=== PATIENT | male | born 1995 | race Caucasian/White ===

== ENCOUNTER 2017-03-28 14:54 | Emergency (ER) | payer BC ==
[~2017-03-28] VITALS: Ht 180.3 cm; Wt 76.8 kg
[~2017-03-28 14:54] MED LIST: AMOX875T PO; EFF75 PO
[2017-03-28 14:56] VITALS: Ht 180.3 cm; Wt 76.8 kg
[2017-03-28] MEDS ORDERED: MoRPHine SULFATE 10 MG/ML CARP/VIAL IV STA (15:18)
[2017-03-28] MEDS ORDERED: SODIUM CHLORIDE 0.9% 1000ML 1,000 ML IV STA (15:18)
[2017-03-28] MEDS ORDERED: ONDANSETRON INJ 2 MG/ML 2 ML VIAL IV STA (15:18)
[2017-03-28] MEDS ORDERED: ONDANSETRON INJ 2 MG/ML 2 ML VIAL ONE (15:22)
[2017-03-28 15:32] LABS: BASO % 0.2 %; BASO ABS # 0.01 K/uL (0-0.2); COMPLETE YES; EOS % 1.7 %; HEMATOCRIT 43.7 % (42-52); IG% 0.4 %; LYMPH % 29.4 %; LYMPH ABS # 1.55 K/uL (1.2-3.4); MEAN CELL VOLUME 91.6 fL (80-100); MEAN CORPUSCULAR HEMOGLOBIN 30.2 pg (25-34); MEAN PLATELET VOLUME 9.8 fL (7.4-10.4); MONO % 15.4 %; NEUT % 52.9 %; PLATELET COUNT 256 K/uL (130-400); RED BLOOD COUNT 4.77 M/uL (4.7-6.1); WHITE BLOOD COUNT 5.27 K/uL (4.8-10.8)
--- NOTE | 2017-03-28 15:33 | EMERGENCY ROOM VISIT NOTE ---
History First contact with patient: 15:08 Chief Complaint: KIDNEY STONE Stated Complaint: KIDNEY STONE History of Present Illness The patient is a 21 year old male who presents to the Emergency Room with complaints of severe left-sided abdominal and flank pain. The patient states the pain is associated with nausea and vomiting. He states this began approximately 3 hours prior to arrival at the emergency department. He describes the pain as throbbing and rates at 10/10. Patient has taken no medication for his pain. He has had a significant amount of vomiting since the pain began. He has not been able to tolerate any food, has tolerated liquids. The patient denies fever, chills, diarrhea, constipation, or recent illness. He states he has been lightheaded and dizzy. He states movement or touching the areas of pain makes the discomfort worse, and nothing makes it better. He does have a history of kidney stones, and states they has felt like this in the past. He has seen Dr. Soto in the past, but has not seen him recently. Review of Systems A complete 10 point review of systems was reviewed with the patient with pertinent positives and negatives as per history of present illness. All else were negative. Past Medical/Surgical History Medical Problems: (1) Hydronephrosis (2) Kidney stone (3) Peritonsillar abscess Surgical Problems: (1) S/P tonsillectomy Family History Kidney stones Social History Smoking Status: Current Every Day Smoker Alcohol Use: occasionally Drug Use: marijuana Marital Status: single Occupation Status: student, [employer] student Current/Historical Medications Scheduled Amphetamine-Dextroamphetamine 30MG (Adderall Xr 30MG), 30 MG PO DAILY Ondasetron Odt (Zofran Odt), 4 MG SL Q6H Tamsulosin Hcl (Flomax), 0.4 MG PO QD Scheduled PRN Oxycodone Ir (Roxicodone Ir), 1-2 TAB PO Q4H PRN for Pain Allergies None Physical Exam Vital Signs Date Time Temp Pulse Resp B/P (MAP) Pulse Ox O2 Delivery O2 Flow Rate FiO2 03/28/17 18:32 36.7 58 18 107/64 100 03/28/17 17:30 108/68 03/28/17 17:24 62 12 100 03/28/17 17:01 117/70 03/28/17 16:54 78 11 97 03/28/17 16:30 108/65 03/28/17 16:24 60 14 99 03/28/17 16:11 117/73 03/28/17 16:11 60 14 117/73 100 Room Air 03/28/17 15:54 74 22 98 03/28/17 15:36 74 03/28/17 14:56 78 16 108/66 95 Room Air Physical Exam VITALS: Vitals are noted on the nurse's note and reviewed by myself. Vital signs stable. GENERAL: This is a 21-year-old white male, in obvious pain, pale, diaphoretic, well-developed well-nourished. SKIN: The skin was without rashes, erythema, edema, or bruising. There is no tenting of the skin. Capillary reflex less than 2 seconds. HEAD: Normocephalic atraumatic. EARS: External auditory canals clear, tympanic membranes pearly jack without erythema or effusion bilaterally. EYES: Pupils equal round and reactive to light and accommodation. Conjunctivae without injection, sclerae without icterus. Extraocular movements intact. NOSE: Patent, turbinates without inflammation or discharge. No sinus tenderness. MOUTH: Mucous membranes moist. Tonsils are not enlarged. Pharynx without erythema or exudate. Uvula midline. Airway patent. Tongue does not deviate. NECK: Supple without nuchal rigidity. No lymphadenopathy. No thyromegaly. Cervical spine is nontender. No JVD. HEART: Regular rate and rhythm without murmurs gallops or rubs. LUNGS: Clear to auscultation bilaterally without wheezes, rales or rhonchi. No dullness to percussion. No retractions or accessory muscle use. ABDOMEN: Positive bowel sounds x 4. Normal tympanic percussion. Significant tenderness on the entire left side of the abdomen. Otherwise, the abdomen was soft, without masses or organomegaly. Kaiser sign negative. Guarding present, but no rebound tenderness noted. Positive CVA tenderness on the left. MUSCULOSKELETAL: No muscle atrophy, erythema, or edema noted. Full range of motion without joint tenderness in all extremities. No tenderness to palpation. Normal gait. Strength 5/5 throughout. NEURO: Patient was alert and oriented to person place and time. Normal sensation to light and sharp touch. Deep tendon reflexes 2+ throughout. No focal neurological deficits. Medical Decision & Procedures ER Provider Diagnostic Interpretation: LABS: CBC is without leukocytosis, anemia, thrombocytopenia. CMP did show slightly elevated glucose of 120. There is no electrolyte abnormality, renal abnormality, or hepatic abnormality noted. Lipase was negative. Urinalysis showed RADIOLOGY: CT ABD/PELVIS WITHOUT IV CONTRAST FOR STONE: CT SCAN OF THE ABDOMEN AND PELVIS WITHOUT IV CONTRAST CLINICAL HISTORY: Left flank pain. COMPARISON STUDY: Abdominal CT dated 12/20/2013. TECHNIQUE: CT scan of the abdomen and pelvis is performed from the lung bases to the proximal femora. Images are reviewed in the axial, sagittal, and coronal planes. IV contrast was not administered for this examination as per the referring clinician. A dose lowering technique was utilized adhering to the principles of ALARA. CT DOSE: 543.80 mGy.cm FINDINGS: Lung bases: The heart is normal in size and without pericardial effusion. The lung bases are clear. Liver: The unenhanced liver is normal in size, contour, and attenuation. Fatty infiltration is noted adjacent to the falciform ligament. There is no intrahepatic biliary ductal dilatation. Gallbladder: Unremarkable. Spleen: Normal in size and attenuation. Pancreas: Unremarkable. Adrenal glands: Unremarkable. Kidneys: The unenhanced kidneys are normal in size. There is a 3 mm obstructing calculus in the left proximal ureter seen on image #160 seen at L2-L3. This causes mild to moderate left hydronephrosis. There is no right-sided hydronephrosis. There no additional calculi are seen in either kidney. There is no evidence of contour deforming renal mass lesion. Abdominal vasculature: The abdominal aorta is normal in course and caliber. Bowel: The small bowel and colon are normal in course and caliber. The appendix is well-visualized and normal. Peritoneum: There is no intraperitoneal free air or abdominal ascites. Lymphadenopathy: None. Pelvic viscera: The bladder, prostate, and seminal vesicles are normal as visualized. Skeletal structures: No lytic or blastic lesions are seen. IMPRESSION: 1. There is a 3 mm obstructing calculus in the left proximal ureter. This causes mild to moderate left-sided hydronephrosis. 2. No additional calculi are seen in either kidney. Electronically signed by: Pk Lovell M.D. 03/28/2017 3:50 PM Dictated Date/Time: 03/28/2017 3:44 PM Laboratory Results 03/28/17 15:10 Red Blood Count 4.77, Mean Corpuscular Volume 91.6, Mean Corpuscular Hemoglobin 30.2, Mean Corpuscular Hemoglobin Concent 33.0, Mean Platelet Volume 9.8, Neutrophils (%) (Auto) 52.9, Lymphocytes (%) (Auto) 29.4, Monocytes (%) (Auto) 15.4, Eosinophils (%) (Auto) 1.7, Basophils (%) (Auto) 0.2, Neutrophils # (Auto ) 2.79, Lymphocytes # (Auto) 1.55, Monocytes # (Auto) 0.81, Eosinophils # (Auto ) 0.09, Basophils # (Auto) 0.01 03/28/17 15:10 Test 03/28/17 15:10 03/28/17 18:15 White Blood Count 5.27 K/uL (4.8-10.8) Red Blood Count 4.77 M/uL (4.7-6.1) Hemoglobin 14.4 g/dL (14.0-18.0) Hematocrit 43.7 % (42-52) Mean Corpuscular Volume 91.6 fL (80-100) Mean Corpuscular Hemoglobin 30.2 pg (25-34) Mean Corpuscular Hemoglobin Concent 33.0 g/dl (32-36) Platelet Count 256 K/uL (130-400) Mean Platelet Volume 9.8 fL (7.4-10.4) Neutrophils (%) (Auto) 52.9 % Lymphocytes (%) (Auto) 29.4 % Monocytes (%) (Auto) 15.4 % Eosinophils (%) (Auto) 1.7 % Basophils (%) (Auto) 0.2 % Neutrophils # (Auto) 2.79 K/uL (1.4-6.5) Lymphocytes # (Auto) 1.55 K/uL (1.2-3.4) Monocytes # (Auto) 0.81 K/uL (0.11-0.59) Eosinophils # (Auto) 0.09 K/uL (0-0.5) Basophils # (Auto) 0.01 K/uL (0-0.2) RDW Standard Deviation 44.0 fL (36.4-46.3) RDW Coefficient of Variation 13.1 % (11.5-14.5) Immature Granulocyte % (Auto) 0.4 % Immature Granulocyte # (Auto) 0.02 K/uL (0.00-0.02) Anion Gap 9.0 mmol/L (3-11) Est Creatinine Clear Calc Drug Dose 134.1 ml/min Estimated GFR () 136.4 Estimated GFR (Non- 117.6 BUN/Creatinine Ratio 11.6 (10-20) Calcium Level 9.0 mg/dl (8.5-10.1) Total Bilirubin 0.3 mg/dl (0.2-1) Aspartate Amino Transf (AST/SGOT) 20 U/L (15-37) Alanine Aminotransferase (ALT/SGPT) 21 U/L (12-78) Alkaline Phosphatase 48 U/L (45-117) Total Protein 7.2 gm/dl (6.4-8.2) Albumin 4.1 gm/dl (3.4-5.0) Globulin 3.1 gm/dl (2.5-4.0) Albumin/Globulin Ratio 1.3 (0.9-2) Lipase 126 U/L (73-393) Medications Administered Medications (Trade) Dose Ordered Sig/Bartolo Route Start Time Stop Time Status Last Admin Dose Admin Sodium Chloride 1,000 ml @ 999 mls/hr Q1H1M STAT IV 03/28/17 15:18 03/28/17 16:18 DC 03/28/17 15:18 999 MLS/HR Morphine Sulfate (MoRPHine SULFATE INJ) 8 mg NOW STAT IV 03/28/17 15:18 03/28/17 15:21 DC 03/28/17 15:18 8 MG Ondansetron HCl (Zofran Inj) 4 mg STK-MED ONCE .ROUTE 03/28/17 15:22 03/28/17 15:23 DC 03/28/17 15:22 4 MG Morphine Sulfate (MoRPHine SULFATE INJ) 4 mg NOW STAT IV 03/28/17 16:38 03/28/17 16:39 DC 03/28/17 16:38 4 MG Oxycodone HCl (Roxicodone Immediate Rel Tab) 5 mg NOW STAT PO 03/28/17 18:18 03/28/17 18:20 DC 03/28/17 18:18 5 MG Medical Decision The patient was seen and evaluated as above. He is immediately given 8 mg morphine, 4 mg Zofran, and 1 L normal saline solution bolus through the IV. Labs were drawn and imaging studies ordered. Labs were reviewed, did not have any significant abnormalities. CT scan did show a 3 mm obstructing calculus of the left ureter with mild hydronephrosis of the left kidney. I did discuss all the findings with the patient and his father at bedside. Patient is feeling slightly better, however continues to be in significant pain. He was given 4mg Morphine. Discussion with patient regarding obtaining urine sample. The patient was given water to drink and did successfully provide a sample. The patient was given OxyIR 5mg prior to discharge. I did offer admission for pain control, but the patient declines. Discharge instructions reviewed and the patient was discharged home in good condition. Differential diagnosis: Kidney stone, renal colic, renal stone, hydronephrosis, pyelonephritis, urinary tract infection, diverticulitis, gastroenteritis, malignancy, and others Medication Reconcilliation Current Medication List: was personally reviewed by me Blood Pressure Screening Patient's blood pressure: Normal blood pressure Impression Primary Impression: Left ureteral calculus Departure Information Dispostion Home / Self-Care Condition GOOD Prescriptions Oxycodone Ir (Roxicodone Ir) 5 Mg Tab 1-2 TAB PO Q4H Y for Pain, #24 TAB For Initial Treatment Prov: Lisa Hall PA-C 03/28/17 Ondasetron Odt (ZOFRAN ODT) 4 Mg Tab 4 MG SL Q6H for Nausea, #16 TAB Prov: Lisa Hall PA-C 03/28/17 Tamsulosin Hcl (FLOMAX) 0.4 Mg Cap 0.4 MG PO QD for 10 Days, #10 CAP Prov: Lisa Hall PA-C 03/28/17 Referrals Bay Gonzalez MD (PCP) Charles Gupta MD, Urology Patient Instructions ED Stone Renal W Colic, [facility] Additional Instructions You have been treated in the Emergency Department today for a Kidney Stone ( Nephrolithiasis). You have received pain medicine in the emergency department which impairs your ability to operate a vehicle. It is illegal for you to drive after receiving these medicines. You have been prescribed OxyIR to be used for pain control. This is a narcotic medication. You cannot drive or consume alcohol while on this medicine. This medicine should only be used for pain that cannot be controlled with over-the- counter pain medicines. You have been prescribed Zofran to be used for any nausea or vomiting. Take as prescribed. You have been prescribed Flomax 0.4 mg to be taken ONCE daily until you pass the stone. This medicine has been prescribed as it can help relax the smooth muscles of the urinary tract increasing transit time of the kidney stone. For pain control, you can use the following [id number] medicines (if >12 yo): Ibuprofen(Motrin, Advil) may be used for fever or pain. Use 600mg every six hours as needed. Take with food. Avoid using more than 2400mg in a 24 hour period. Do not use 2400mg per day for more than three consecutive days without physician direction. Prolonged inappropriate use can lead to stomach upset or ulcers. (AND/OR) Acetaminophen(Tylenol) may be used for fever or pain. Use 1000mg every six hours as needed. Avoid using more than 3000mg in a 24 hour period. You have been provided a strainer and specimen collection cup. You should strain your urine to collect any passed stones. Your stones can be placed into the specimen cup and taken to your Urologist for further evaluation. You have been provided the contact information for your Urologist. You should contact the Urologist's office tomorrow to establish a follow-up appointment from today's Emergency Department visit. Return to the Emergency Department if your symptoms persist despite the treatment plan outlined above or if you develop the following symptoms: intractable pain, fever, chills, or large amounts of blood in your urine. Work Instructions Return To Work: 2 days
[2017-03-28 15:49] LABS: BUN/CREATININE RATIO 11.6 (10-20); CREATININE 0.92 mg/dl (0.60-1.40); POTASSIUM 3.7 mmol/L (3.5-5.1)
--- NOTE | 2017-03-28 15:51 | DIAGNOSTIC IMAGING REPORT ---
CT SCAN OF THE ABDOMEN AND PELVIS WITHOUT IV CONTRAST CLINICAL HISTORY: Left flank pain. COMPARISON STUDY: Abdominal CT dated 12/20/2013. TECHNIQUE: CT scan of the abdomen and pelvis is performed from the lung bases to the proximal femora. Images are reviewed in the axial, sagittal, and coronal planes. IV contrast was not administered for this examination as per the referring clinician. A dose lowering technique was utilized adhering to the principles of ALARA. CT DOSE: 543.80 mGy.cm FINDINGS: Lung bases: The heart is normal in size and without pericardial effusion. The lung bases are clear. Liver: The unenhanced liver is normal in size, contour, and attenuation. Fatty infiltration is noted adjacent to the falciform ligament. There is no intrahepatic biliary ductal dilatation. Gallbladder: Unremarkable. Spleen: Normal in size and attenuation. Pancreas: Unremarkable. Adrenal glands: Unremarkable. Kidneys: The unenhanced kidneys are normal in size. There is a 3 mm obstructing calculus in the left proximal ureter seen on image #160 seen at L2-L3. This causes mild to moderate left hydronephrosis. There is no right-sided hydronephrosis. There no additional calculi are seen in either kidney. There is no evidence of contour deforming renal mass lesion. Abdominal vasculature: The abdominal aorta is normal in course and caliber. Bowel: The small bowel and colon are normal in course and caliber. The appendix is well-visualized and normal. Peritoneum: There is no intraperitoneal free air or abdominal ascites. Lymphadenopathy: None. Pelvic viscera: The bladder, prostate, and seminal vesicles are normal as visualized. Skeletal structures: No lytic or blastic lesions are seen. IMPRESSION: 1. There is a 3 mm obstructing calculus in the left proximal ureter. This causes mild to moderate left-sided hydronephrosis. 2. No additional calculi are seen in either kidney. Electronically signed by: Pk Lovell M.D. 03/28/2017 3:50 PM Dictated Date/Time: 03/28/2017 3:44 PM
[2017-03-28 15:52] LABS: ALB/GLOB RATIO 1.3 (0.9-2)
[2017-03-28] MEDS ORDERED: MoRPHine SULFATE 4 MG/ML 1 ML CARP\\VIAL IV STA (16:38)
[2017-03-28] MEDS ORDERED: ONDA4TAB10 SL (18:01)
[2017-03-28] MEDS ORDERED: TAMS0.4C38 PO (18:01)
[2017-03-28] MEDS ORDERED: OXYC1TAB3 PO (18:01)
[2017-03-28] MEDS ORDERED: OXYCODONE HCL IR 5 MG TAB (IMMEDIATE RELEASE) PO STA (18:18)
[2017-03-28 18:29] LABS: URINE APPEARANCE CLOUDY (CLEAR); URINE BILIRUBIN NEG (NEG); URINE COLOR YELLOW; URINE NITRITE NEG (NEG); URINE SPECIFIC GRAVITY 1.014 (1.000-1.030); UROBILINOGEN NEG (NEG); ZZUR CULT IF INDIC CLEAN CATCH NO
[2017-03-28 18:32] VITALS: BP 107/64; PULSE 58; TEMP 36.7; O2SAT 100
[2017-03-28 18:35] LABS: MANUAL MICROSCOPIC REQUIRED? NO; REVIEW REQ? YES
== END 2017-03-28 18:33 | disposition home or self-care (01) ==
LOC: C.EDB 14:55 → C.EDA 18:33
DX: N13.2 Hydronephrosis with renal and ureteral calculous obstruction (principal); Z84.1 Family history of disorders of kidney and ureter; F17.210 Nicotine dependence, cigarettes, uncomplicated; F12.90 Cannabis use, unspecified, uncomplicated; Z79.899 Other long term (current) drug therapy

== ENCOUNTER 2017-03-30 14:35 | Emergency (ER) | payer BC ==
[~2017-03-30] VITALS: Ht 180.3 cm; Wt 79.2 kg
[~2017-03-30 14:35] MED LIST changes: +ONDA4TAB10 SL; +OXYC1TAB3 PO; +TAMS0.4C38 PO
[2017-03-30 14:41] VITALS: TEMP 36.8; Ht 180.3 cm; Wt 79.2 kg
[2017-03-30] MEDS ORDERED: ONDANSETRON INJ 2 MG/ML 2 ML VIAL IV STA (14:51)
[2017-03-30] MEDS ORDERED: SODIUM CHLORIDE 0.9% 1000ML 1,000 ML IV STA ×2 (14:51)
[2017-03-30] MEDS ORDERED: KETOROLAC TROMETHAMINE 30 MG/ML VIAL IV STA (14:51)
[2017-03-30] MEDS ORDERED: FENTANYL CITRATE INJ 50 MCG/1 ML 2 ML VIAL IV PRN (15:00)
--- NOTE | 2017-03-30 15:01 | EMERGENCY ROOM VISIT NOTE ---
History Report prepared by Nikki: Gerber Vieira Under the Supervision of: Dr. Jose Virgen M.D. First contact with patient: 14:44 Chief Complaint: KIDNEY STONE Stated Complaint: KIDNEY STONES, ETREME PAIN History of Present Illness The patient is a 21 year old male who presents to the Emergency Room with complaints of worsening left sided flank pain that began 3 days ago. He rates his pain a 9/10 in severity. He was in the ER two days ago and received a CT scan that showed a 3 mm kidney stone. He was discharged with Oxycodone and Ibuprofen. He was told to return if his pain worsens, which is why he presents today. He is also experiencing nausea without any vomiting. He denies any fevers or chills. He did not take any Oxycodone yesterday, but needed one earlier today. He only took 1 tablet of Ibuprofen as well. Source of History: patient Onset: 3 days ago Position: other (Left flank) Symptom Intensity: 9/10 Quality: sharp Timing: worsening Associated Symptoms: + nausea, No fevers, No chills, No vomiting Review of Systems See HPI for pertinent positives and negatives. A total of ten systems were reviewed and were otherwise negative. Past Medical & Surgical Medical Problems: (1) Hydronephrosis (2) Kidney stone (3) Peritonsillar abscess Surgical Problems: (1) S/P tonsillectomy Family History Kidney stones Social History Smoking Status: Current Every Day Smoker Smokeless Tobacco Use: No Alcohol Use: none Drug Use: none Marital Status: single Occupation Status: student, [employer] student Current/Historical Medications Scheduled Amphetamine-Dextroamphetamine 30MG (Adderall Xr 30MG), 30 MG PO DAILY Ondasetron Odt (Zofran Odt), 4 MG SL Q6H Tamsulosin Hcl (Flomax), 0.4 MG PO QD Scheduled PRN Ibuprofen Tab (Motrin), 800 MG PO Q8H PRN for Pain Oxycodone Ir (Roxicodone Ir), 1-2 TAB PO Q4H PRN for Pain Allergies Coded Allergies: No Known Allergies (Unverified , NONE KNOWN, 03/28/17) Physical Exam Vital Signs Date Time Temp Pulse Resp B/P (MAP) Pulse Ox O2 Delivery O2 Flow Rate FiO2 03/30/17 18:22 91 16 113/72 98 Room Air 03/30/17 16:48 84 03/30/17 16:30 76 18 103/62 96 Room Air 03/30/17 14:41 36.8 80 16 109/62 99 Room Air Physical Exam GENERAL: Awake, alert, uncomfortable appearing, in no distress HENT: Normocephalic, atraumatic. Dry mucous membranes. EYES: Normal conjunctiva. Sclera non-icteric. NECK: Supple. No nuchal rigidity. FROM. No JVD. RESPIRATORY: Clear to auscultation. CARDIAC: Regular rate, normal rhythm. Extremities warm and well perfused. Pulses equal. ABDOMEN: Soft, non-distended. Left flank, left abdominal, and epigastric tenderness to palpation. No rebound or guarding. No masses. No peritoneal signs. RECTAL: Deferred. MUSCULOSKELETAL: Chest examination reveals no tenderness. The back is symmetrical on inspection without obvious abnormality. There is left sided CVA tenderness to palpation. No joint edema. LOWER EXTREMITIES: Calves are equal size bilaterally and non-tender. No edema. No discoloration. NEURO: Normal sensorium. No sensory or motor deficits noted. SKIN: No rash or jaundice noted. Medical Decision & Procedures ER Provider Diagnostic Interpretation: Radiology results as stated below per my review and radiologist interpretation: (RENAL)RETROPERITON COMP HISTORY: 21 years-old Male left flank pain with known ureteral stone acute left-sided flank pain with calculus of the proximal left ureter seen on comparison CT COMPARISON: CT 03/28/2017 TECHNIQUE: Multiple real-time sonographic images of the kidneys and urinary bladder were obtained assessing grayscale appearance and color flow FINDINGS: The right kidney measures 10.7 cm in length and is unremarkable without hydronephrosis. There is minimal prominence of a superior pole calyx, likely incidental. No renal calculi or focal mass. Cortical medullary differentiation is preserved Left kidney measures 11.3 cm in length and again demonstrates mild dilation of the central and peripheral calyces and renal pelvis as well as the proximal left ureter. Previously noted proximal left ureteral calculus not identified. No definite nephrolithiasis. Cortical medullary differentiation preserved Urinary bladder is mostly collapsed. IMPRESSION: 1. Persistent mild left-sided hydroureteronephrosis with previously described obstructing left ureteral calculus not seen on this study. 2. Unremarkable sonographic appearance of the right kidney. 3. Nondistention of the urinary bladder. The above report was generated using voice recognition software. It may contain grammatical, syntax or spelling errors. Electronically signed by: Nathan Simon M.D. 03/30/2017 3:58 PM Dictated Date/Time: 03/30/2017 3:55 PM Laboratory Results 03/30/17 15:05 Red Blood Count 4.49, Mean Corpuscular Volume 91.5, Mean Corpuscular Hemoglobin 30.7, Mean Corpuscular Hemoglobin Concent 33.6, Mean Platelet Volume 9.8, Neutrophils (%) (Auto) 34.5, Lymphocytes (%) (Auto) 44.1, Monocytes (%) (Auto) 18.8, Eosinophils (%) (Auto) 2.3, Basophils (%) (Auto) 0.3, Neutrophils # (Auto ) 1.34, Lymphocytes # (Auto) 1.71, Monocytes # (Auto) 0.73, Eosinophils # (Auto ) 0.09, Basophils # (Auto) 0.01 03/30/17 15:05 Test 03/30/17 15:05 03/30/17 17:13 White Blood Count 3.88 K/uL (4.8-10.8) Red Blood Count 4.49 M/uL (4.7-6.1) Hemoglobin 13.8 g/dL (14.0-18.0) Hematocrit 41.1 % (42-52) Mean Corpuscular Volume 91.5 fL (80-100) Mean Corpuscular Hemoglobin 30.7 pg (25-34) Mean Corpuscular Hemoglobin Concent 33.6 g/dl (32-36) Platelet Count 228 K/uL (130-400) Mean Platelet Volume 9.8 fL (7.4-10.4) Neutrophils (%) (Auto) 34.5 % Lymphocytes (%) (Auto) 44.1 % Monocytes (%) (Auto) 18.8 % Eosinophils (%) (Auto) 2.3 % Basophils (%) (Auto) 0.3 % Neutrophils # (Auto) 1.34 K/uL (1.4-6.5) Lymphocytes # (Auto) 1.71 K/uL (1.2-3.4) Monocytes # (Auto) 0.73 K/uL (0.11-0.59) Eosinophils # (Auto) 0.09 K/uL (0-0.5) Basophils # (Auto) 0.01 K/uL (0-0.2) RDW Standard Deviation 43.8 fL (36.4-46.3) RDW Coefficient of Variation 13.2 % (11.5-14.5) Immature Granulocyte % (Auto) 0.0 % Immature Granulocyte # (Auto) 0.00 K/uL (0.00-0.02) Anion Gap 7.0 mmol/L (3-11) Est Creatinine Clear Calc Drug Dose 141.8 ml/min Estimated GFR () 142.0 Estimated GFR (Non- 122.5 BUN/Creatinine Ratio 11.0 (10-20) Calcium Level 8.7 mg/dl (8.5-10.1) Total Bilirubin 0.2 mg/dl (0.2-1) Direct Bilirubin < 0.1 mg/dl (0-0.2) Aspartate Amino Transf (AST/SGOT) 40 U/L (15-37) Alanine Aminotransferase (ALT/SGPT) 54 U/L (12-78) Alkaline Phosphatase 52 U/L (45-117) Total Protein 6.8 gm/dl (6.4-8.2) Albumin 3.9 gm/dl (3.4-5.0) Lipase 146 U/L (73-393) Urine Color YELLOW Urine Appearance CLEAR (CLEAR) Urine pH 7.5 (4.5-7.5) Urine Specific [place] 1.025 (1.000-1.030) Urine Protein 1+ (NEG) Urine Glucose (UA) NEG (NEG) Urine Ketones TRACE (NEG) Urine Occult Blood 2+ (NEG) Urine Nitrite NEG (NEG) Urine Bilirubin NEG (NEG) Urine Urobilinogen NEG (NEG) Urine Leukocyte Esterase NEG (NEG) Urine WBC (Auto) 1-5 /hpf (0-5) Urine RBC (Auto) >30 /hpf (0-4) Urine Hyaline Casts (Auto) 1-5 /lpf (0-5) Urine Epithelial Cells (Auto) 5-10 /lpf (0-5) Urine Bacteria (Auto) NEG (NEG) Laboratory results reviewed by me Medications Administered Medications (Trade) Dose Ordered Sig/Bartolo Route Start Time Stop Time Status Last Admin Dose Admin Sodium Chloride 1,000 ml @ 999 mls/hr Q1H1M STAT IV 03/30/17 14:51 03/30/17 15:51 DC 03/30/17 15:07 999 MLS/HR Ondansetron HCl (Zofran Inj) 4 mg NOW STAT IV 03/30/17 14:51 03/30/17 14:56 DC 03/30/17 15:06 4 MG Fentanyl Citrate (Fentanyl Inj) 50 mcg Q20M PRN IV 03/30/17 15:00 03/30/17 21:11 DC 03/30/17 15:06 50 MCG Ketorolac Tromethamine (Toradol Inj) 30 mg NOW STAT IV 03/30/17 14:51 03/30/17 14:56 DC 03/30/17 15:06 30 MG Sodium Chloride 1,000 ml @ 999 mls/hr Q1H1M STAT IV 03/30/17 14:51 03/30/17 15:51 DC 03/30/17 15:07 999 MLS/HR ED Course 1444: The patient was evaluated in room B10. A complete history and physical exam was performed. 1451: Ordered Sodium Chloride 1000 ml @ 999 mls/hr IV, Toradol Inj 30 mg IV, Zofran Inj 4 mg IV, Sodium Chloride 1000 ml @ 999 mls/hr IV 1500: Ordered Fentanyl Inj 50 mcg IV 1807: I reevaluated the patient. Discussed results and discharge instructions: He verbalized understanding and agreement. The patient is ready for discharge. Medical Decision I reviewed the patient's past medical history, medications, and the nursing notes as described above. Differential diagnoses include ureteral stone, obstruction, pyelonephritis, cystitis, and sub-optimal home analgesia. The patient is a 21 y/o gentleman with a pmhx of recent dx of 3mm obstructing ureteral stone when seen in the ED on 03/28 who presents to the ED with worsening left flank pain per HPI. On arrival the patient is uncomfortable but in NAD, AFVSS. Mild left CVA, Left abdominal /epigastric pain. Labs unremarkable with WBC 3.88. Chemistry unremarkable. UA negative for infection. Formal renal US still with mild hydro but no worsening from prior. Patient improved after IVF, zofran, analgesia. Patient instructed on home pain regimen of schedule IB with oxycodone for breakthrough pain. Findings and plan for follow-up d/w patient. Patient agreeable and d/c'd per discharge instructions. Medication Reconcilliation Current Medication List: was personally reviewed by me Blood Pressure Screening Patient's blood pressure: Normal blood pressure Blood pressure disposition: Did not require urgent referral Impression Primary Impression: Ureterolithiasis Scribe Attestation The scribe's documentation has been prepared under my direction and personally reviewed by me in its entirety. I confirm that the note above accurately reflects all work, treatment, procedures, and medical decision making performed by me. Departure Information Dispostion Home / Self-Care Prescriptions Ibuprofen Tab (MOTRIN) 800 Mg Tab 800 MG PO Q8H Y for Pain for 14 Days, #42 TAB Prov: Jose Virgen M.D. 03/30/17 Referrals Bay Gonzalez MD (PCP) Forms HOME CARE DOCUMENTATION FORM, IMPORTANT VISIT INFORMATION Patient Instructions Kidney Stone Urine, My [facility] Additional Instructions Please follow up with your primary care physician in the next 1-3 days for re- evaluation. Your pain is likely due to your known kidney stone. Otherwise, your exam, EKG, ultrasound, and lab results did not show signs of an emergent condition at this time. Take ibuprofen for pain every 8 hours as prescribed. Take your Flomax as previously prescribed Continue your Zofran for nausea as needed and your oxycodone for breakthrough pain as previously prescribed. Return to the emergency department for worsening symptoms as described in the accompanying instructions.
[2017-03-30 15:20] LABS: BASO % 0.3 %; BASO ABS # 0.01 K/uL (0-0.2); COMPLETE YES; EOS % 2.3 %; HEMATOCRIT 41.1 % (42-52); LYMPH % 44.1 %; LYMPH ABS # 1.71 K/uL (1.2-3.4); MEAN CELL VOLUME 91.5 fL (80-100); MEAN CORPUSCULAR HEMOGLOBIN 30.7 pg (25-34); MEAN CORPUSCULAR HGB CONC 33.6 g/dl (32-36); MEAN PLATELET VOLUME 9.8 fL (7.4-10.4); MONO % 18.8 %; NEUT % 34.5 %; PLATELET COUNT 228 K/uL (130-400); RED BLOOD COUNT 4.49 M/uL (4.7-6.1); WHITE BLOOD COUNT 3.88 K/uL (4.8-10.8)
[2017-03-30 15:36] LABS: BLOOD UREA NITROGEN 10 mg/dl (7-18); CALCIUM 8.7 mg/dl (8.5-10.1); CARBON DIOXIDE 29 mmol/L (21-32); CHLORIDE 107 mmol/L (98-107); CREATININE 0.87 mg/dl (0.60-1.40); GLUCOSE 88 mg/dl (70-99); POTASSIUM 4.1 mmol/L (3.5-5.1); SODIUM 143 mmol/L (136-145)
[2017-03-30 15:39] LABS: ALKALINE PHOSPHATASE 52 U/L (45-117); ALT/SGPT 54 U/L (12-78); AST/SGOT 40 U/L (15-37)
--- NOTE | 2017-03-30 15:59 | DIAGNOSTIC IMAGING REPORT ---
(RENAL)RETROPERITON COMP HISTORY: 21 years-old Male left flank pain with known ureteral stone acute left-sided flank pain with calculus of the proximal left ureter seen on comparison CT COMPARISON: CT 03/28/2017 TECHNIQUE: Multiple real-time sonographic images of the kidneys and urinary bladder were obtained assessing grayscale appearance and color flow FINDINGS: The right kidney measures 10.7 cm in length and is unremarkable without hydronephrosis. There is minimal prominence of a superior pole calyx, likely incidental. No renal calculi or focal mass. Cortical medullary differentiation is preserved Left kidney measures 11.3 cm in length and again demonstrates mild dilation of the central and peripheral calyces and renal pelvis as well as the proximal left ureter. Previously noted proximal left ureteral calculus not identified. No definite nephrolithiasis. Cortical medullary differentiation preserved Urinary bladder is mostly collapsed. IMPRESSION: 1. Persistent mild left-sided hydroureteronephrosis with previously described obstructing left ureteral calculus not seen on this study. 2. Unremarkable sonographic appearance of the right kidney. 3. Nondistention of the urinary bladder. The above report was generated using voice recognition software. It may contain grammatical, syntax or spelling errors. Electronically signed by: Nathan Simon M.D. 03/30/2017 3:58 PM Dictated Date/Time: 03/30/2017 3:55 PM
[2017-03-30] MEDS ORDERED: AMPH30CA3 PO (16:14)
[2017-03-30 17:35] LABS: URINE APPEARANCE CLEAR (CLEAR); URINE BILIRUBIN NEG (NEG); URINE COLOR YELLOW; URINE NITRITE NEG (NEG); URINE PH 7.5 (4.5-7.5); URINE SPECIFIC GRAVITY 1.025 (1.000-1.030); UROBILINOGEN NEG (NEG); ZZUR CULT IF INDIC CLEAN CATCH NO
[2017-03-30 17:38] LABS: MANUAL MICROSCOPIC REQUIRED? NO; REVIEW REQ? NO
[2017-03-30 17:39] LABS: SULFASALICYLIC ACID POS (NEG)
[2017-03-30] MEDS ORDERED: IBUP-1451 PO (18:01)
[2017-03-30 18:22] VITALS: BP 113/72; PULSE 91; O2SAT 98
== END 2017-03-30 18:32 | disposition home or self-care (01) ==
LOC: C.EDB 14:36
DX: N20.1 Calculus of ureter (principal); F17.200 Nicotine dependence, unspecified, uncomplicated

== ENCOUNTER → 2017-04-19 | Outpatient (CLI) | payer BC ==
[~2017-04-19] MED LIST changes: -AMOX875T PO; +AMPH30CA3 PO; -EFF75 PO; +OPTIRAY 300 IV PRN; -TAMS0.4C38 PO
--- NOTE | 2017-04-19 14:40 | DIAGNOSTIC IMAGING REPORT ---
IVP W/OR W/O TOMOGRAMS CLINICAL HISTORY: N20.0 Nephrolithiasisno latex allergy, no iodine allergy, not di nephrocalcinosis COMPARISON STUDY: 12/18/2013. CT evaluation 03/28/2017. Renal ultrasound 03/30/2017 FINDINGS: Survey film of the abdomen shows no definite calcifications in the region of the urinary tracts or paravertebral regions. Study is performed from the administration of 100 cc nonionic contrast. There is prompt opacification of the left upper urinary tract. There is no evidence for hydronephrosis. Left ureter is normal in course and caliber. There is no evidence for an obstructing left-sided urinary tract calculus. There is a slight delay in opacification of a moderately distended right renal collecting system and right renal pelvis. This appears to represent interval finding. A well-defined obstructing calculus is not identified. Right ureter is normal in course and caliber. Bladder fills well with no central deformity of filling defect. Post void shows no significant residual. There is mild persistent caliectasis of the right renal collecting system. IMPRESSION: 1. Normal-appearing left upper urinary tract with no evidence for an obstructing calculus. 2. Calculus previously described as most likely passed. 3. interval development of moderate right renal caliectasis with prominence of the right renal pelvis. Etiology is unclear, although this potentially relates to chronic change. The above report was generated using voice recognition software. It may contain grammatical, syntax or spelling errors. Electronically signed by: Kannan Mays M.D. 04/19/2017 2:39 PM Dictated Date/Time: 04/19/2017 2:22 PM
== END | disposition home or self-care (01) ==
LOC: C.RAD 13:01
PROVIDERS: ATTEND Urology
DX: N20.0 Calculus of kidney (principal)

== ENCOUNTER 2018-02-19 10:29 | Emergency (ER) | payer BC, OTHER ==
[~2018-02-19] VITALS: Ht 180.3 cm; Wt 68.5 kg
[~2018-02-19 10:29] MED LIST changes: -ONDA4TAB10 SL; -OPTIRAY 300 IV PRN; -OXYC1TAB3 PO
[2018-02-19 10:31] VITALS: Ht 180.3 cm; Wt 68.5 kg
[2018-02-19] MEDS ORDERED: KETOROLAC TROMETHAMINE 30 MG/ML VIAL IV STA (10:52)
[2018-02-19] MEDS ORDERED: SODIUM CHLORIDE 0.9% 1000ML 1,000 ML IV STA (10:52)
[2018-02-19] MEDS ORDERED: ONDANSETRON INJ 2 MG/ML 2 ML VIAL IV STA (10:52)
[2018-02-19] MEDS ORDERED: MoRPHine SULFATE 10 MG/ML CARP/VIAL IV STA (10:52)
--- NOTE | 2018-02-19 11:19 | DIAGNOSTIC IMAGING REPORT ---
KUB CLINICAL HISTORY: EVALUATE FOR OBSTRUCTION/STONE pain COMPARISON STUDY: 04/19/2017 FINDINGS: Nonobstructive bowel pattern. No abnormal calcifications. Psoas shows are intact. No significant paravertebral calcifications. IMPRESSION: Normal study. The above report was generated using voice recognition software. It may contain grammatical, syntax or spelling errors. Electronically signed by: Kannan Mays M.D. 02/19/2018 11:18 AM Dictated Date/Time: 02/19/2018 11:17 AM
[2018-02-19 11:21] LABS: BASO % 0.5 %; BASO ABS # 0.03 K/uL (0-0.2); EOS % 3.8 %; EOS ABS # 0.24 K/uL (0-0.5); HEMATOCRIT 45.7 % (42-52); HEMOGLOBIN 15.5 g/dL (14.0-18.0); IG# 0.02 K/uL (0.00-0.02); LYMPH % 41.8 %; LYMPH ABS # 2.61 K/uL (1.2-3.4); MEAN CELL VOLUME 90.1 fL (80-100); MEAN CORPUSCULAR HEMOGLOBIN 30.6 pg (25-34); MEAN CORPUSCULAR HGB CONC 33.9 g/dl (32-36); MEAN PLATELET VOLUME 9.7 fL (7.4-10.4); MONO % 13.6 %; MONO ABS # 0.85 K/uL (0.11-0.59); PLATELET COUNT 241 K/uL (130-400); RED CELL DISTRIBUTION WIDTH CV 13.1 % (11.5-14.5); RED CELL DISTRIBUTION WIDTH SD 42.4 fL (36.4-46.3); WHITE BLOOD COUNT 6.25 K/uL (4.8-10.8)
[2018-02-19 11:33] LABS: CREATININE 1.16 mg/dl (0.60-1.40)
[2018-02-19 11:34] LABS: ALBUMIN 4.2 gm/dl (3.4-5.0); CALCIUM 8.6 mg/dl (8.5-10.1); POTASSIUM 4.2 mmol/L (3.5-5.1); TOTAL PROTEIN 7.7 gm/dl (6.4-8.2)
--- NOTE | 2018-02-19 12:21 | DIAGNOSTIC IMAGING REPORT ---
RENAL ULTRASOUND HISTORY: R flank pain COMPARISON: Abdomen and pelvis CT 03/28/2017. FINDINGS: Right kidney: 12.0 cm. Mild fullness within the right renal pelvis. There is a 1.1 cm shadowing stone within the lower pole of the right kidney. Normal corticomedullary differentiation and cortical thickness. Left kidney: 10.7 cm. No hydronephrosis. Normal corticomedullary differentiation and cortical thickness. Bladder: Bilateral ureteral jets are identified. Multiple echogenic debris seen within the bladder. There are few punctate stones within the bladder. Focal area of debris has a masslike appearance and within the right posterior bladder wall. This measures 11 mm and is best in image 29. However, this is mobile and therefore favors debris/blood products IMPRESSION: 1. Mild fullness within the right renal pelvis. 2. A 1.1 cm stone within the lower pole of the right kidney. 3. Small bladder stones and a small amount of bladder debris/blood products. 4. Normal left kidney. Electronically signed by: Abdulkadir Frankel M.D. 02/19/2018 12:20 PM Dictated Date/Time: 02/19/2018 12:15 PM
[2018-02-19] MEDS ORDERED: MoRPHine SULFATE 4 MG/ML 1 ML CARP\\VIAL IV STA (12:51)
[2018-02-19] MEDS ORDERED: OXYC-90 PO (12:54)
[2018-02-19 12:59] VITALS: BP 103/68; PULSE 53; O2SAT 100
--- NOTE | 2018-02-19 16:42 | EMERGENCY ROOM VISIT NOTE ---
History First contact with patient: 10:31 Chief Complaint: KIDNEY STONE Stated Complaint: KIDNEY STONES History of Present Illness The patient is a 22 year old male who presents to the Emergency Room with complaints of acute onset of right flank pain radiating into the right pelvic region. The patient reports a prior history of kidney stones, and reports that this feels similar. His pain started around 6 AM this morning. He has not noticed any urinary symptoms over the past few days. He does follow with Dr. Charles Gupta, urologist. He believes that his last kidney stone was in March 2017, and was on the left side. He reports nausea and vomiting. He denies fevers or chills. He rates his discomfort an 8 out of 10 on my exam. Review of Systems HEENT: Denies dizziness, visual problems, hearing loss, tinnitus. Denies difficulty swallowing or oral lesions. PULMONARY: Denies cough, shortness of breath, sputum production or hemoptysis. CARDIOVASCULAR: Denies chest pain, palpitations, dyspnea on exertion, orthopnea or peripheral edema. GASTROINTESTINAL: Denies diarrhea or constipation, otherwise see HPI. GENITOURINARY: Denies dysuria, frequency, urgency or nocturia. Patient otherwise has a history of kidney stones. NEUROLOGIC: Denies history of epilepsy, CVA, TIA or chronic headaches. MUSCULOSKELETAL: Denies history of joint tenderness/swelling. SKIN: Denies rashes or lesions. PSYCHIATRIC: Denies history of depression or mental illness. ENDOCRINE: Denies history of diabetes or thyroid disorders. Past Medical/Surgical History Medical Problems: (1) Hydronephrosis (2) Kidney stone (3) Peritonsillar abscess Surgical Problems: (1) S/P tonsillectomy Family History Kidney stones Social History Smoking Status: Current Every Day Smoker Alcohol Use: none Drug Use: none Marital Status: single Occupation Status: student, [employer] student Current/Historical Medications Scheduled PRN Oxycodone Ir (Roxicodone Ir), 1 TAB PO Q4H PRN for Pain Physical Exam Vital Signs Date Time Temp Pulse Resp B/P (MAP) Pulse Ox O2 Delivery O2 Flow Rate FiO2 02/19/18 12:59 53 16 103/68 100 Room Air 02/19/18 12:22 52 18 103/58 99 Room Air 02/19/18 10:31 87 22 137/89 97 Room Air Physical Exam CONSTITUTIONAL: Healthy and well nourished. Alert and oriented X 3 with positive affect. Patient appears in severe discomfort, and is actively vomiting. HEENT: Normocephalic, atraumatic. Pupils equal, round and reactive. Ears and nares are clear. No scleral icterus or conjunctival injection/pallor. NECK: Full active range of motion without discomfort. RESPIRATORY: Clear to auscultation bilaterally with no wheezing, crackles, rhonchi or stridor. CARDIOVASCULAR: Regular rate and rhythm with no murmurs, rubs or gallops. GASTROINTESTINAL: Bowel sounds present in all quadrants. Abdomen is soft and nontender to palpation. Negative McBurney's point tenderness. Negative Kaiser sign. No abdominal rigidity, guarding or rebound. Negative CVA tenderness. MUSCULOSKELETAL: Full range of motion of all joints without discomfort. INTEGUMENTARY: No rash or other significant dermatologic conditions noted. HEMATOLOGIC: No ecchymosis or petechiae. NEUROLOGIC: No focal neurologic deficits noted. Medical Decision & Procedures ER Provider Diagnostic Interpretation: Retroperitoneal ultrasound does not show any obvious ureteral calculi. Other findings are discussed in the radiologist report: RENAL ULTRASOUND HISTORY: R flank pain COMPARISON: Abdomen and pelvis CT 03/28/2017. FINDINGS: Right kidney: 12.0 cm. Mild fullness within the right renal pelvis. There is a 1.1 cm shadowing stone within the lower pole of the right kidney. Normal corticomedullary differentiation and cortical thickness. Left kidney: 10.7 cm. No hydronephrosis. Normal corticomedullary differentiation and cortical thickness. Bladder: Bilateral ureteral jets are identified. Multiple echogenic debris seen within the bladder. There are few punctate stones within the bladder. Focal area of debris has a masslike appearance and within the right posterior bladder wall. This measures 11 mm and is best in image 29. However, this is mobile and therefore favors debris/blood products IMPRESSION: 1. Mild fullness within the right renal pelvis. 2. A 1.1 cm stone within the lower pole of the right kidney. 3. Small bladder stones and a small amount of bladder debris/blood products. 4. Normal left kidney. My interpretation of the KUB does not show any obvious ureteral calculi. Radiologist report is as follows: KUB CLINICAL HISTORY: EVALUATE FOR OBSTRUCTION/STONE pain COMPARISON STUDY: 04/19/2017 FINDINGS: Nonobstructive bowel pattern. No abnormal calcifications. Psoas shows are intact. No significant paravertebral calcifications. IMPRESSION: Normal study. Laboratory Results 02/19/18 10:40 Red Blood Count 5.07, Mean Corpuscular Volume 90.1, Mean Corpuscular Hemoglobin 30.6, Mean Corpuscular Hemoglobin Concent 33.9, Mean Platelet Volume 9.7, Neutrophils (%) (Auto) 40.0, Lymphocytes (%) (Auto) 41.8, Monocytes (%) (Auto) 13.6, Eosinophils (%) (Auto) 3.8, Basophils (%) (Auto) 0.5, Neutrophils # (Auto ) 2.50, Lymphocytes # (Auto) 2.61, Monocytes # (Auto) 0.85, Eosinophils # (Auto ) 0.24, Basophils # (Auto) 0.03 02/19/18 10:40 Test 02/19/18 10:40 02/19/18 12:30 White Blood Count 6.25 K/uL (4.8-10.8) Red Blood Count 5.07 M/uL (4.7-6.1) Hemoglobin 15.5 g/dL (14.0-18.0) Hematocrit 45.7 % (42-52) Mean Corpuscular Volume 90.1 fL (80-100) Mean Corpuscular Hemoglobin 30.6 pg (25-34) Mean Corpuscular Hemoglobin Concent 33.9 g/dl (32-36) Platelet Count 241 K/uL (130-400) Mean Platelet Volume 9.7 fL (7.4-10.4) Neutrophils (%) (Auto) 40.0 % Lymphocytes (%) (Auto) 41.8 % Monocytes (%) (Auto) 13.6 % Eosinophils (%) (Auto) 3.8 % Basophils (%) (Auto) 0.5 % Neutrophils # (Auto) 2.50 K/uL (1.4-6.5) Lymphocytes # (Auto) 2.61 K/uL (1.2-3.4) Monocytes # (Auto) 0.85 K/uL (0.11-0.59) Eosinophils # (Auto) 0.24 K/uL (0-0.5) Basophils # (Auto) 0.03 K/uL (0-0.2) RDW Standard Deviation 42.4 fL (36.4-46.3) RDW Coefficient of Variation 13.1 % (11.5-14.5) Immature Granulocyte % (Auto) 0.3 % Immature Granulocyte # (Auto) 0.02 K/uL (0.00-0.02) Anion Gap 9.0 mmol/L (3-11) Est Creatinine Clear Calc Drug Dose 96.0 ml/min Estimated GFR () 102.3 Estimated GFR (Non- 88.3 BUN/Creatinine Ratio 13.9 (10-20) Calcium Level 8.6 mg/dl (8.5-10.1) Total Bilirubin 0.6 mg/dl (0.2-1) Aspartate Amino Transf (AST/SGOT) 19 U/L (15-37) Alanine Aminotransferase (ALT/SGPT) 32 U/L (12-78) Alkaline Phosphatase 56 U/L (45-117) Total Protein 7.7 gm/dl (6.4-8.2) Albumin 4.2 gm/dl (3.4-5.0) Globulin 3.5 gm/dl (2.5-4.0) Albumin/Globulin Ratio 1.2 (0.9-2) Lipase 153 U/L (73-393) Urine Color YELLOW Urine Appearance TURBID (CLEAR) Urine pH 8.5 (4.5-7.5) Urine Specific Pixley 1.019 (1.000-1.030) Urine Protein NEG (NEG) Urine Glucose (UA) NEG (NEG) Urine Ketones NEG (NEG) Urine Occult Blood TRACE (NEG) Urine Nitrite NEG (NEG) Urine Bilirubin NEG (NEG) Urine Urobilinogen NEG (NEG) Urine Leukocyte Esterase NEG (NEG) Urine WBC (Auto) 1-5 /hpf (0-5) Urine RBC (Auto) 5-10 /hpf (0-4) Urine Hyaline Casts (Auto) 0 /lpf (0-5) Urine Epithelial Cells (Auto) 5-10 /lpf (0-5) Urine Bacteria (Auto) NEG (NEG) The above labs were reviewed and were grossly normal. Urinalysis shows hematuria without signs of infection. Renal function is also normal. Medications Administered Medications (Trade) Dose Ordered Sig/Bartolo Route Start Time Stop Time Status Last Admin Dose Admin Sodium Chloride 1,000 ml @ 999 mls/hr Q1H1M STAT IV 02/19/18 10:52 02/19/18 11:52 DC 02/19/18 11:02 999 MLS/HR Ketorolac Tromethamine (Toradol Inj) 30 mg NOW STAT IV 02/19/18 10:52 02/19/18 10:55 DC 02/19/18 11:03 30 MG Morphine Sulfate (MoRPHine SULFATE INJ) 8 mg NOW STAT IV 02/19/18 10:52 02/19/18 10:55 DC 02/19/18 11:03 8 MG Ondansetron HCl (Zofran Inj) 4 mg NOW STAT IV 02/19/18 10:52 02/19/18 10:56 DC 02/19/18 11:02 4 MG Morphine Sulfate (MoRPHine SULFATE INJ) 4 mg NOW STAT IV 02/19/18 12:51 02/19/18 12:53 DC 02/19/18 13:00 4 MG ED Course Patient history and physical exam were performed. Nurse's notes were reviewed. Vital signs were reviewed and were normal. The patient appears in severe distress with pain and nausea/vomiting. IV access was established, and labs were drawn. The patient was hydrated with a liter normal saline, and was administered IV Toradol, morphine and Zofran. Labs were reviewed and normal. The patient does have hematuria without signs of infection. Retroperitoneal ultrasound and a KUB x-ray was not able to visualize the ureteral stone; renal pelvis fullness and hematuria are noted, indicating that the patient is near passing a stone. On reevaluation, the patient reported that the pain now feels much lower within the pelvis. He rated his discomfort a 5 out of 10 on reexamination, reporting that his pain was slowly coming back. He was administered an additional morphine 4 mg IVP prior to discharge. The patient was encouraged to contact Dr. Gupta's office for further follow-up and management. The patient was provided a prescription for OxyIR 5 mg. He was encouraged to increase fluid intake. Return to the emergency department for any uncontrollable pain, vomiting or developing fever. The patient was happy with plan of care, and voiced understanding of all discharge instructions. Medical Decision Patient presents with complaint of right flank and pelvic pain. The patient does have a prior history of kidney stones. Although ultrasound and a KUB x- ray is not able to visualize a right ureteral calculus, I do suspect that the patient is currently passing or near passing a stone. The patient has a benign abdominal exam that is not suggestive of appendicitis or peritonitis. The patient has no CVA tenderness to suggest pyelonephritis. [facility] Drug Monitoring Program Search Results: patient reviewed within database, no issues identified Medication Reconcilliation Current Medication List: was personally reviewed by me Blood Pressure Screening Patient's blood pressure: Normal blood pressure Impression Primary Impression: Renal colic on right side Departure Information Prescriptions Oxycodone Ir (Roxicodone Ir) 5 Mg Tab 1 TAB PO Q4H Y for Pain, #10 TAB For Initial Treatment Prov: Americo De León PA 02/19/18 Referrals Bay Gonzalez MD (PCP) Patient Instructions My [facility]
== END 2018-02-19 13:18 | disposition home or self-care (01) ==
LOC: C.EDB 10:30 → C.EDA 13:18
DX: N23 Unspecified renal colic (principal); F17.200 Nicotine dependence, unspecified, uncomplicated; Z87.442 Personal history of urinary calculi

== ENCOUNTER 2021-05-02 07:49 | Observation (INO) ==
[2021-05-02] MEDS ORDERED: SODIUM CHLORIDE 0.9% 1000ML 1,000 ML IV ONE ×2 (08:07→10:20)
[2021-05-02] MEDS ORDERED: ONDANSETRON INJ 2 MG/ML 2 ML VIAL IV STA ×2 (08:07→14:52)
--- NOTE | 2021-05-02 08:14 | Emergency Department Note ---
History of Present Illness General Chief complaint: Vomiting Stated complaint: VOMITING, HX OF KIDNEY STONES Time Seen by Provider: 05/02/21 07:58 Source: patient Mode of arrival: ambulatory Limitations: no limitations History of Present Illness This patient is a 25-year-old male who presents to the emergency department for evaluation of vomiting/dry heaving which started this morning. He states that he woke up feeling nauseous and began vomiting. He has had multiple episodes of vomiting and has been dry heaving. He states that he is feeling chills and is sweating. He denies any abdominal pain. He does have a history of kidney s tones but states this does not feel similar. He denies any diarrhea. He states that he has felt fine over the past few days. Denies any sick contacts. He has been vaccinated for both COVID-19 and influenza. Home Medications Medication Instructions Recorded Confirmed Type dextroamphetamine-amphetamine 30 30 mg PO BID 02/16/21 05/02/21 History mg tablet (Adderall) multivitamin 1 tab PO QAM 02/16/21 05/02/21 History Medical Marijuana 1 dose PO UD 05/02/21 05/02/21 History Allergies Allergy/AdvReac Type Severity Reaction Status Date / Time No Known Allergies Allergy NONE KNOWN Verified 05/02/21 08:10 Past Med/Surg History Medical History Anxiety Cannabis use, unspecified, uncomplicated Congenital obstruction of ureteropelvic junction (UPJ) Depression Hypertension Nephrolithiasis Panic disorder Tobacco use disorder Surgical History History of cystoscopy STENT PLACED History of tonsillectomy History of ureter stent Family History Family/Other Family history of diabetes mellitus Mother Nephrolithiasis Unknown Vesicoureteral reflux Social History Smoking Status: Light tobacco smoker Tobacco Type: Cigarettes Cigarettes Per Day: 1-2 CIGS DAILY; Second Hand Exposure: No; Hx Alcohol Use: Yes Alcohol type: beer Hx Substance Use: Yes Last Used Substance: Days (ago) Last Used Substance Other:: 05/01/21 Substance Use Type Other:: Medical Marijuana Preferred Language: Kyrgyz Communication Ability: Effective Registered Radiation Therapist Required: No Beliefs That Will Affect Care: None Current Living Situation: Parent Feels Safe at Home: Yes Assistive Devices: None Review of Systems A total of 10 systems reviewed and were otherwise negative Physical Exam Vital Signs Vital Signs - 24 hr 05/02/21 07:53 Temperature 36.9 C Temperature Source Temporal Artery Scan Pulse Rate 74 Pulse Rhythm Regular Pulse Strength Normal Respiratory Rate 17 Respiratory Effort / Characteristics Non-Labored Spontaneous Respiratory Depth Normal Respiratory Pattern Regular Blood Pressure 125/81 Blood Pressure Mean 95 Pulse Oximetry 100 Oxygen Delivery Method Room Air Sepsis Recent Fever Within 48 Hours No Sepsis New/Unexplained Change in Mental Status No Sepsis Action Taken by Nursing No Action Required VITALS: Vitals are noted on the nurse's note and reviewed by myself. GENERAL: This is a 25-year-old male, diaphoretic, uncomfortable appearing. SKIN: The skin was without rashes. EARS: External auditory canals clear, tympanic membranes pearly jack without erythema or effusion bilaterally. EYES: Pupils equal round and reactive to light and accommodation. MOUTH: Mucous membranes moist. NECK: Supple without nuchal rigidity. No lymphadenopathy. HEART: Regular rate and rhythm without murmurs gallops or rubs. LUNGS: Clear to auscultation bilaterally without wheezes, rales or rhonchi. ABDOMEN: Positive bowel sounds x 4. Soft, nontender to palpation. No guarding or rebound tenderness. NEURO: Patient was alert and oriented to person place and time. Course Administered Medications Acetaminophen (Acetaminophen 325 Mg Tab) 650 mg PO Q4H PRN PRN Reason: pain/fever Stop: 06/02/21 01:08 Last Admin: 05/03/21 01:23 Dose: 650 mg Documented by: [id number] Amphetamine/Dextroamphetamine (Amphetamine Asp/Sulf/Dextramph 10 Mg Tab) 30 mg PO BID@0800,1700 DIANA Stop: 05/16/21 20:59 Last Admin: 05/03/21 17:22 Dose: Not Given Documented by: [id number] Admin: 05/03/21 10:15 Dose: Not Given Documented by: [id number] Piperacillin Sod/Tazobactam (Sod 3.375 gm/ Dextrose) 115 mls @ 28.75 mls/hr IV Q8H [facility]; Protocol Stop: 05/05/21 00:00 Last Admin: 05/03/21 17:23 Dose: 28.8 mls/hr Documented by: [id number] Infusion: 05/03/21 14:56 Dose: 0 mls/hr Documented by: [id number] Admin: 05/03/21 10:12 Dose: 28.8 mls/hr Documented by: [id number] Infusion: 05/03/21 04:07 Dose: 0 mls/hr Documented by: [id number] Admin: 05/03/21 00:03 Dose: 28.8 mls/hr Documented by: [id number] Sodium Chloride (Nss) 1,000 mls @ 80 mls/hr IV .[id number] [facility] Stop: 06/02/21 03:54 Last Infusion: 05/03/21 17:22 Dose: 80 mls/hr Documented by: [id number] Infusion: 05/03/21 13:57 Dose: 0 mls/hr Documented by: [id number] Infusion: 05/03/21 10:33 Dose: 80 mls/hr Documented by: [id number] Infusion: 05/03/21 08:00 Dose: 0 mls/hr Documented by: [id number] Admin: 05/03/21 04:27 Dose: 80 mls/hr Documented by: [id number] Morphine Sulfate (Morphine Sulfate 2 Mg/Ml Carp) 2 mg IV Q1H PRN PRN Reason: Pain Stop: 05/17/21 16:35 Last Admin: 05/03/21 17:39 Dose: 2 mg Documented by: [id number] Multivitamins (Multivitamin Tab) [facility] [place] Stop: 06/02/21 08:59 Last Admin: 05/03/21 10:14 Dose: Not Given Documented by: [id number] Ondansetron HCl (Ondansetron Inj 2 Mg/Ml 2 Ml Vial) 4 mg IV Q4H PRN PRN Reason: Nausea Stop: 06/01/21 17:19 Last Admin: 05/02/21 22:32 Dose: 4 mg Documented by: [id number] Promethazine HCl (Promethazine Hcl 25 Mg/20 Ml Udp) 25 mg PO Q6H PRN PRN Reason: Nausea And Vomiting Stop: 06/01/21 23:04 Last Admin: 05/03/21 10:13 Dose: 25 mg Documented by: [id number] Admin: 05/03/21 00:05 Dose: 25 mg Documented by: [id number] Discontinued Medications Bupivacaine HCl (Bupivacaine 0.5 % 5 Mg/1 Ml Mpf 30ml Vial) Confirm Administered Dose 30 ml .ROUTE .STK-MED ONE Stop: 05/03/21 14:37 Last Admin: 05/03/21 15:14 Dose: 30 ml Documented by: [id number] Fentanyl Citrate (Fentanyl Citrate 100 Mcg/2 Ml Vial) 25 mcg IV Q5M PRN PRN Reason: PACU Use Only-Pain Stop: 05/03/21 22:06 Last Admin: 05/03/21 15:57 Dose: 25 mcg Documented by: [id number] Admin: 05/03/21 15:52 Dose: 25 mcg Documented by: [id number] Sodium Chloride (Nss 1000ml) 1,000 mls @ 999 mls/hr IV .Q1H1M ONE Stop: 05/02/21 09:07 Last Infusion: 05/02/21 12:28 Dose: 0 mls/hr Documented by: [id number] Admin: 05/02/21 08:13 Dose: 999 mls/hr Documented by: [id number] Sodium Chloride (Nss 1000ml) 1,000 mls @ 999 mls/hr IV .Q1H1M ONE Stop: 05/02/21 11:20 Last Infusion: 05/02/21 12:29 Dose: 0 mls/hr Documented by: [id number] Admin: 05/02/21 10:47 Dose: 999 mls/hr Documented by: [id number] Promethazine HCl (Phenergan) 12.5 mg in 50.5 mls @ 202 mls/hr IV NOW STA Stop: 05/02/21 10:34 Last Infusion: 05/02/21 12:28 Dose: 0 mls/hr Documented by: [id number] Admin: 05/02/21 10:47 Dose: 202 mls/hr Documented by: [id number] Sodium Chloride (Nss) 500 mls @ 80 mls/hr IV .Q6H15M DIANA Stop: 06/01/21 17:19 Last Infusion: 05/03/21 04:24 Dose: 0 mls/hr Documented by: [id number] Admin: 05/03/21 03:51 Dose: 80 mls/hr Documented by: [id number] Infusion: 05/03/21 00:29 Dose: 80 mls/hr Documented by: [id number] Admin: 05/02/21 18:14 Dose: 80 mls/hr Documented by: [id number] Piperacillin Sod/Tazobactam (Sod 3.375 gm/ Dextrose) 115 mls @ 230 mls/hr IV ONE ONE; Protocol Stop: 05/02/21 18:29 Last Infusion: 05/02/21 18:48 Dose: 0 mls/hr Documented by: [id number] Admin: 05/02/21 18:18 Dose: 230 mls/hr Documented by: [id number] Ioversol (Optiray 320 100ml) 94 ml IV ONCE ONE Stop: 05/02/21 12:31 Last Admin: 05/02/21 12:30 Dose: 94 ml Documented by: [id number] Ketorolac Tromethamine (Ketorolac Tromethamine 15 Mg/Ml Vial) 15 mg IV NOW STA Stop: 05/02/21 10:21 Last Admin: 05/02/21 10:47 Dose: 15 mg Documented by: [id number] Ondansetron HCl (Ondansetron Inj 2 Mg/Ml 2 Ml Vial) 4 mg IV NOW STA Stop: 05/02/21 08:08 Last Admin: 05/02/21 08:13 Dose: 4 mg Documented by: [id number] Ondansetron HCl (Ondansetron Inj 2 Mg/Ml 2 Ml Vial) 4 mg IV NOW STA Stop: 05/02/21 14:53 Last Admin: 05/02/21 15:37 Dose: 4 mg Documented by: [id number] Medical Decision Making Differential Diagnosis Gastroenteritis, food borne illness, infections, appendicitis, diverticulitis, inflammatory bowel disease, obstruction, GI bleed, biliary pathology, volvulus, as well as other pathologies. Home Medications Current Medication List: was personally reviewed by me Laboratory Data Attestation: I reviewed the patient's lab results. Result diagrams: 05/03/21 10:12 05/02/21 08:08 Lab Results 05/02/21 05/02/21 05/02/21 Range/Units 08:08 08:08 11:36 WBC 12.54 H (4.8-10.8) K/uL RBC 5.18 (4.7-6.1) M/uL Hgb 15.9 (14.0-18.0) g/dL Hct 47.5 (42-52) % MCV 91.7 (80-100) fL MCH 30.7 (25-34) pg MCHC 33.5 (32-36) g/dL RDW Std Deviation 44.4 (36.4-46.3) fL RDW Coeff of Aundrea 13.2 (11.5-14.5) % Plt Count 282 (130-400) K/uL MPV 9.5 (7.4-10.4) fL Immature Gran % (Auto) 0.3 % Neut % (Auto) 77.4 % Lymph % (Auto) 14.8 % Mitchell % (Auto) 6.5 % Eos % (Auto) 0.9 % Baso % (Auto) 0.1 % Neut # (Auto) 9.71 H (1.4-6.5) K/uL Lymph # (Auto) 1.85 (1.2-3.4) K/uL Mitchell # (Auto) 0.82 H (0.11-0.59) K/uL Eos # (Auto) 0.11 (0-0.5) K/uL Baso # (Auto) 0.01 (0-0.2) K/uL Immature Gran # (Auto) 0.04 H (0.00-0.02) K/uL Sodium 142 (136-145) mmol/L Potassium 3.8 (3.5-5.1) mmol/L Chloride 104 (98-107) mmol/L Carbon Dioxide 31 (21-32) mmol/L Anion Gap 7.0 (3-11) BUN 18 (7-18) mg/dl Creatinine 0.90 (0.6-1.4) mg/dl Est Cr Clr Drug Dosing Not Reportable Est GFR ( Amer) 136.1 ml/min Est GFR (Non-Af Amer) 117.5 ml/min BUN/Creatinine Ratio 20.2 H (10-20) Glucose 145 H (70-99) mg/dl Calcium 9.4 (8.5-10.1) mg/dl Total Bilirubin 0.4 (0.2-1) mg/dl AST 24 (15-37) U/L ALT 28 (12-78) U/L Alkaline Phosphatase 57 (45-117) U/L Total Protein 8.6 H (6.4-8.2) gm/dl Albumin 4.6 (3.4-5.0) gm/dl Globulin 4.0 (2.5-4.0) gm/dl Albumin/Globulin Ratio 1.2 (0.9-2) Lipase 131 (73-393) U/L Urine Color Yellow Urine Appearance Turbid A (Clear) Urine pH >= 9.0 H (4.5-7.5) Ur Specific [place] 1.024 (1.000-1.030) Urine Protein 1+ H (Negative) Urine Glucose (UA) Negative (Negative) Urine Ketones Trace H (Negative) Urine Blood Negative (Negative) Urine Nitrite Negative (Negative) Urine Bilirubin Negative (Negative) Urine Urobilinogen Negative (Negative) Ur Leukocyte Esterase Negative (Negative) Urine WBC (Auto) 1-5 (0-5) /hpf Urine RBC (Auto) 0-4 (0-4) /hpf U Hyaline Cast (Auto) 1-5 (0-5) /lpf U Epithel Cells (Auto) >30 H (0-5) /lpf Urine Bacteria (Auto) Negative (Negative) Ur Renal Epithelial Cell Not Reportable COVID-19 Eval Order SARS-CoV-2 (PCR) (Negative) Influenza Type A Ag (Neg) Influ A Molecular Assay Influenza Type B Ag (Neg) Influ B Molecular Assay 05/02/21 05/02/21 05/02/21 Range/Units 11:54 11:54 11:54 WBC (4.8-10.8) K/uL RBC (4.7-6.1) M/uL Hgb (14.0-18.0) g/dL Hct (42-52) % MCV (80-100) fL MCH (25-34) pg MCHC (32-36) g/dL RDW Std Deviation (36.4-46.3) fL RDW Coeff of Aundrea (11.5-14.5) % Plt Count (130-400) K/uL MPV (7.4-10.4) fL Immature Gran % (Auto) % Neut % (Auto) % Lymph % (Auto) % Mitchell % (Auto) % Eos % (Auto) % Baso % (Auto) % Neut # (Auto) (1.4-6.5) K/uL Lymph # (Auto) (1.2-3.4) K/uL Mitchell # (Auto) (0.11-0.59) K/uL Eos # (Auto) (0-0.5) K/uL Baso # (Auto) (0-0.2) K/uL Immature Gran # (Auto) (0.00-0.02) K/uL Sodium (136-145) mmol/L Potassium (3.5-5.1) mmol/L Chloride (98-107) mmol/L Carbon Dioxide (21-32) mmol/L Anion Gap (3-11) BUN (7-18) mg/dl Creatinine (0.6-1.4) mg/dl Est Cr Clr Drug Dosing Est GFR ( Amer) ml/min Est GFR (Non-Af Amer) ml/min BUN/Creatinine Ratio (10-20) Glucose (70-99) mg/dl Calcium (8.5-10.1) mg/dl Total Bilirubin (0.2-1) mg/dl AST (15-37) U/L ALT (12-78) U/L Alkaline Phosphatase (45-117) U/L Total Protein (6.4-8.2) gm/dl Albumin (3.4-5.0) gm/dl Globulin (2.5-4.0) gm/dl Albumin/Globulin Ratio (0.9-2) Lipase (73-393) U/L Urine Color Urine Appearance (Clear) Urine pH (4.5-7.5) Ur Specific [place] (1.000-1.030) Urine Protein (Negative) Urine Glucose (UA) (Negative) Urine Ketones (Negative) Urine Blood (Negative) Urine Nitrite (Negative) Urine Bilirubin (Negative) Urine Urobilinogen (Negative) Ur Leukocyte Esterase (Negative) Urine WBC (Auto) (0-5) /hpf Urine RBC (Auto) (0-4) /hpf U Hyaline Cast (Auto) (0-5) /lpf U Epithel Cells (Auto) (0-5) /lpf Urine Bacteria (Auto) (Negative) Ur Renal Epithelial Cell COVID-19 Eval Order Covid19 at [facility] SARS-CoV-2 (PCR) NEGATIVE (Negative) Influenza Type A Ag (Neg) Influ A Molecular Assay Cancelled Influenza Type B Ag (Neg) Influ B Molecular Assay Cancelled 05/02/21 Range/Units 11:56 WBC (4.8-10.8) K/uL RBC (4.7-6.1) M/uL Hgb (14.0-18.0) g/dL Hct (42-52) % MCV (80-100) fL MCH (25-34) pg MCHC (32-36) g/dL RDW Std Deviation (36.4-46.3) fL RDW Coeff of Aundrea (11.5-14.5) % Plt Count (130-400) K/uL MPV (7.4-10.4) fL Immature Gran % (Auto) % Neut % (Auto) % Lymph % (Auto) % Mitchell % (Auto) % Eos % (Auto) % Baso % (Auto) % Neut # (Auto) (1.4-6.5) K/uL Lymph # (Auto) (1.2-3.4) K/uL Mitchell # (Auto) (0.11-0.59) K/uL Eos # (Auto) (0-0.5) K/uL Baso # (Auto) (0-0.2) K/uL Immature Gran # (Auto) (0.00-0.02) K/uL Sodium (136-145) mmol/L Potassium (3.5-5.1) mmol/L Chloride (98-107) mmol/L Carbon Dioxide (21-32) mmol/L Anion Gap (3-11) BUN (7-18) mg/dl Creatinine (0.6-1.4) mg/dl Est Cr Clr Drug Dosing Est GFR ( Amer) ml/min Est GFR (Non-Af Amer) ml/min BUN/Creatinine Ratio (10-20) Glucose (70-99) mg/dl Calcium (8.5-10.1) mg/dl Total Bilirubin (0.2-1) mg/dl AST (15-37) U/L ALT (12-78) U/L Alkaline Phosphatase (45-117) U/L Total Protein (6.4-8.2) gm/dl Albumin (3.4-5.0) gm/dl Globulin (2.5-4.0) gm/dl Albumin/Globulin Ratio (0.9-2) Lipase (73-393) U/L Urine Color Urine Appearance (Clear) Urine pH (4.5-7.5) Ur Specific [place] (1.000-1.030) Urine Protein (Negative) Urine Glucose (UA) (Negative) Urine Ketones (Negative) Urine Blood (Negative) Urine Nitrite (Negative) Urine Bilirubin (Negative) Urine Urobilinogen (Negative) Ur Leukocyte Esterase (Negative) Urine WBC (Auto) (0-5) /hpf Urine RBC (Auto) (0-4) /hpf U Hyaline Cast (Auto) (0-5) /lpf U Epithel Cells (Auto) (0-5) /lpf Urine Bacteria (Auto) (Negative) Ur Renal Epithelial Cell COVID-19 Eval Order SARS-CoV-2 (PCR) (Negative) Influenza Type A Ag Neg for Influ A (Neg) Influ A Molecular Assay Influenza Type B Ag Neg for Influ B (Neg) Influ B Molecular Assay Imaging Data Attestation: I personally reviewed and interpreted this imaging study as follows: Radiologist's Impression: CT abd pelvis IV con only FINDINGS: Lung base: The lung bases are clear. Abdominal cavity: There is no evidence for abdominal mass, adenopathy or ascites. Liver: There is homogeneous attenuation of the liver parenchyma. There is no evidence for enhancing mass lesion. Spleen: There is homogeneous attenuation of the splenic parenchyma. There is no enhancing mass lesion. Pancreas: There is homogeneous attenuation of the pancreatic parenchyma. There is no evidence for mass lesion or peripancreatic fluid collection. Gall Bladder: The gallbladder is distended with evidence for fluid involving the gallbladder wall versus pericholecystic edema. There is also suspicion of cholelithiasis. Gallbladder ultrasound is recommended to evaluate for possible acute cholecystitis. Adrenal glands: The adrenal glands are normal in size and attenuation. There is no evidence for enhancing mass lesion. Kidneys: There is homogeneous attenuation of the renal parenchyma bilaterally. There is no evidence for renal calculus or hydronephrosis. There is no evidence for enhancing mass. Bowel: The bowel loops are normally placed within the abdomen and pelvis. There is no evidence for mass lesion. There are no inflammatory changes present. There is no evidence for free air. There is no evidence for an inflamed appendix. Bladder: The bladder is within normal limits with no evidence for focal mass, calculus or diverticulum. : There is no evidence for pelvic mass or adenopathy. There is no evidence for pelvic ascites. Vasculature: There is no evidence for aneurysmal dilatation of the abdominal aorta. Osseous structures: There is no acute osseous pathology. IMPRESSION: 1. Distention of the gallbladder with fluid present within the gallbladder wall versus pericholecystic edema. There is also suspicion of cholelithiasis. Gallbladder ultrasound is recommended to evaluate for possible acute cholecystitis. 2. No other acute intra-abdominal or pelvic abnormality. US gallbladder FINDINGS: The liver is diffusely homogenous with normal contour and echogenicity. No focal mass lesions are seen. No intrahepatic ductal dilatation is seen. The gallbladder wall is heterogeneously thickened measuring up to 5 mm. Patient has some tenderness to the sonographic probe, of note, patient has received pain medication. There is no pericholecystic fluid present. The common duct measures 0.3 cm in diameter at the level of the hepatic artery. The visualized portions of the pancreas appear normal. The right kidney shows normal echogenicity, cortical thickness and renal contour. The right kidney shows no evidence of hydronephrosis or mass. No ascites or free fluid is seen in Murrell's pouch. IMPRESSION: Edema of the gallbladder wall measuring up to 5 mm in diameter, concerning for acute cholecystitis. Kaiser's sign was equivocal in this patient who has received pain medication. MDM Narrative Continuous cardiac rehabilitation specialist: Order was placed for continuous cardiac rehabilitation specialist. Patient was placed on the cardiac rehabilitation specialist. Patient was noted to be in normal sinus rhythm at an initial r ate of 75 bpm. The patient is a 25-year-old male who presents today complaining of vomiting. Patient initially did not complain of any abdominal pain, later did complain of some epigastric and right upper quadrant abdominal pain. Labs revealed a leukocytosis of 12,000, no anemia or concerning electrolyte abnormalities. LFTs were within normal limits. Glucose mildly elevated at 145. A CT scan was performed due to continued vomiting and showed evidence of cholecystitis. Right upper quadrant ultrasound also showed evidence of cholecystitis. General surgery was consulted and evaluated the patient but felt that he did not have acute cholecystitis and felt the CT findings represented periportal edema. They recommended admission to medicine and HIDA scan. Case was discussed with the [facility] hospitalist service, who agreed to evaluate the patient for further care. Patient did receive multiple doses of IV antiemetics while in the emergency department. Impression & Plan Nausea & vomiting, Abdominal pain, acute, right upper quadrant Discharge Plan Visit Data Chief Complaint: Vomiting Stated Complaint: VOMITING, HX OF KIDNEY STONES ED Provider: Eliud Ley ED Midlevel Provider: Misty De La Cruz Discharge Problem: Nausea & vomiting, Abdominal pain, acute, right upper quadrant Patient Disposition: Admitted As Inpatient Discharge Instructions Interventions: ED Discharge Assessment Last Done: 05/02/21 17:03 Discharge Problem: Nausea & vomiting Qualifiers: Vomiting type: unspecified Vomiting Intractability: intractable Qualified Code(s): R11.2 - Nausea with vomiting, unspecified
[2021-05-02 08:31] LABS: Basophils # (auto) 0.01 K/uL (0-0.2); Basophils % (auto) 0.1 %; Eosinophils # (auto) 0.11 K/uL (0-0.5); Eosinophils % (auto) 0.9 %; Hematocrit (blood only) 47.5 % (42-52); Hemoglobin 15.9 g/dL (14.0-18.0); Immature Granulocytes # (auto) 0.04 K/uL (0.00-0.02); Immature Granulocytes % (auto) 0.3 %; Lymphocytes # (auto) 1.85 K/uL (1.2-3.4); Lymphocytes % (auto) 14.8 %; Mean Corpuscular Hemoglobin 30.7 pg (25-34); Mean Corpuscular Hgb Conc 33.5 g/dL (32-36); Mean Corpuscular Volume 91.7 fL (80-100); Mean Platelet Volume 9.5 fL (7.4-10.4); Monocytes # (auto) 0.82 K/uL (0.11-0.59); Monocytes % (auto) 6.5 %; Neutrophils # (auto) 9.71 K/uL (1.4-6.5); Neutrophils % (auto) 77.4 %; Platelet Count 282 K/uL (130-400); RDW Coefficient of Variation 13.2 % (11.5-14.5); RDW Standard Deviation 44.4 fL (36.4-46.3); Red Blood Count 5.18 M/uL (4.7-6.1); White Blood Count 12.54 K/uL (4.8-10.8)
[2021-05-02 08:49] LABS: Alanine Aminotransferase 28 U/L (12-78); Albumin Level 4.6 gm/dl (3.4-5.0); Aspartate Aminotransferase 24 U/L (15-37); BUN Creatinine Ratio 20.2 (10-20); Blood Urea Nitrogen 18 mg/dl (7-18); Calcium 9.4 mg/dl (8.5-10.1); Carbon Dioxide 31 mmol/L (21-32); Chloride 104 mmol/L (98-107); Est GFR (African American) 136.1 ml/min; Est GFR (Non-African American) 117.5 ml/min; Glucose 145 mg/dl (70-99); Lipase 131 U/L (73-393); Potassium 3.8 mmol/L (3.5-5.1); Sodium 142 mmol/L (136-145)
[2021-05-02 08:52] LABS: Albumin Globulin Ratio 1.2 (0.9-2); Alkaline Phosphatase 57 U/L (45-117); Bilirubin,Total 0.4 mg/dl (0.2-1); Total Protein 8.6 gm/dl (6.4-8.2)
[2021-05-02] MEDS ORDERED: PROMETHAZINE 12.5 MG/50.5 ML BAG IV STA (10:20)
[2021-05-02] MEDS ORDERED: KETOROLAC TROMETHAMINE 15 MG/ML VIAL IV STA (10:20)
[2021-05-02 11:51] LABS: Appearance Urine Turbid (Clear); Bacteria Urine Automated Negative (Negative); Bilirubin Urine Negative (Negative); Blood Urine Negative (Negative); Color Urine Yellow; Epithelial Cell Urine Auto >30 /lpf (0-5); Glucose Urine UA Negative (Negative); Ketones Urine Trace (Negative); Leukocyte Esterase Urine Negative (Negative); Nitrite Urine Negative (Negative); RBC Urine Automated 0-4 /hpf (0-4); Specific Gravity Urine 1.024 (1.000-1.030); Urobilinogen Urine Negative (Negative); pH Urine >= 9.0 (4.5-7.5)
[2021-05-02 12:02] LABS: Protein Urine 1+ (Negative)
[2021-05-02] MEDS ORDERED: OPTIRAY 320 100ml IV ONE (12:30)
--- NOTE | 2021-05-02 13:14 | CT Scan Report ---
CT abd pelvis IV con only CLINICAL HISTORY: vomiting COMPARISON STUDY: 04/11/2018 CT DOSE: 269.42 mGy.cm TECHNIQUE: Standard CT of the Abdomen and Pelvis was performed with IV contrast. A dose lowering dylan hnique was utilized adhering to the principles of ALARA. Contrast Volume: Omnipaque 320, 94 ml. The patient did not receive oral contrast. FINDINGS: Lung base: The lung bases are clear. Abdominal cavity: There is no evidence for abdominal mass, adenopathy or ascites. Liver: There is homogeneous attenuation of the liver parenchyma. There is no evidence for enhancing m ass lesion. Spleen: There is homogeneous attenuation of the splenic parenchyma. There is no enhancing mass lesion . Pancreas: There is homogeneous attenuation of the pancreatic parenchyma. There is no evidence for mas s lesion or peripancreatic fluid collection. Gall Bladder: The gallbladder is distended with evidence for fluid involving the gallbladder wall rosa marleni pericholecystic edema. There is also suspicion of cholelithiasis. Gallbladder ultrasound is recom mended to evaluate for possible acute cholecystitis. Adrenal glands: The adrenal glands are normal in size and attenuation. There is no evidence for enhan cing mass lesion. Kidneys: There is homogeneous attenuation of the renal parenchyma bilaterally. There is no evidence f or renal calculus or hydronephrosis. There is no evidence for enhancing mass. Bowel: The bowel loops are normally placed within the abdomen and pelvis. There is no evidence for ma ss lesion. There are no inflammatory changes present. There is no evidence for free air. There is no evidence for an inflamed appendix. Bladder: The bladder is within normal limits with no evidence for focal mass, calculus or diverticulu m. : There is no evidence for pelvic mass or adenopathy. There is no evidence for pelvic ascites. Vasculature: There is no evidence for aneurysmal dilatation of the abdominal aorta. Osseous structures: There is no acute osseous pathology. IMPRESSION: 1. Distention of the gallbladder with fluid present within the gallbladder wall versus pericholecysti c edema. There is also suspicion of cholelithiasis. Gallbladder ultrasound is recommended to evaluate for possible acute cholecystitis. 2. No other acute intra-abdominal or pelvic abnormality. ACT 112: Positive. There are findings on this exam that require communication between the performing entity and the patient following Patient Test Result Information Act ([place] Act 112) guidelines. Electronically signed by: Shayan Garcia M.D. 05/02/2021 1:12 PM
--- NOTE | 2021-05-02 14:12 | Ultrasound Report ---
US gallbladder CLINICAL HISTORY: vomiting, gallbladder distention on ct TECHNIQUE: Multiple real-time sonographic images of the right upper quadrant were obtained. Comparison: None available at the time of this dictation. FINDINGS: The liver is diffusely homogenous with normal contour and echogenicity. No focal mass lesions are se en. No intrahepatic ductal dilatation is seen. The gallbladder wall is heterogeneously thickened measuring up to 5 mm. Patient has some tenderness to the sonographic probe, of note, patient has rece ived pain medication. There is no pericholecystic fluid present. The common duct measures 0.3 cm in d iameter at the level of the hepatic artery. The visualized portions of the pancreas appear normal. The right kidney shows normal echogenicity, cortical thickness and renal contour. The right kidney sh ows no evidence of hydronephrosis or mass. No ascites or free fluid is seen in Murrell's pouch. IMPRESSION: Edema of the gallbladder wall measuring up to 5 mm in diameter, concerning for acute cholecystitis. M urphy's sign was equivocal in this patient who has received pain medication. ACT 112: Negative or not required by law. Electronically signed by: Rosendo Hanley M.D. 05/02/2021 2:10 PM
--- NOTE | 2021-05-02 15:34 | Surgery Consultation ---
Date of Consultation May 02, 2021 Assessment & Plan (1) Nausea & vomiting: Imaging studies were reviewed with radiology. He does not have gallstones. He does have periportal edema and likely edema of the gallbladder is related to this (viral?). Does not appear to be acute cholecystitis. He has persistent N/V, would recommend admission for IVF and meds, consider HIDA if symptoms are not improved in the morning. Supervising Physician Co-Signing Physician Notes Patient seen and examined, labs and imaging reviewed, agree with above. 25 y/o male with nausea and vomiting starting this morning. Now has some pain in right side. History of kidney stones and stent. On exam afvss, nad, aaox3. Abd with mild right sided ttp, no guarding, neg edmonds's. WBC 12, LFT's normal. CT personally reviewed and interpreted, reviewed with radiology. CT with periportal edema and pericholecystic fluid. RUQUS with no stones, pericholecystic fluid. Likely viral illness, unlikely acalculous cholecystitis in healthy 25 year old male. No surgical intervention for now. If requires admission, then recommend medicine consultation and HIDA scan. Surgery will follow. History of Present Illness History of Present Illness 25 y/o male woke up with N/V and came to ED. N/V has persisted and while in the ED he started to have some right sided abdominal pain. Had hot and cold flashes also at home. No diarrhea. Had [employer] for dinner. No abdominal symptoms prior to this. Allergies Allergy/AdvReac Type Severity Reaction Status Date / Time No Known Allergies Allergy NONE KNOWN Verified 05/02/21 08:10 Home Medications Medication Instructions Recorded Confirmed Type dextroamphetamine-amphetamine 30 30 mg PO BID 02/16/21 05/02/21 History mg tablet (Adderall) multivitamin 1 tab PO QAM 02/16/21 05/02/21 History Medical Marijuana 1 dose PO UD 05/02/21 05/02/21 History Patient History Medical History Anxiety Cannabis use, unspecified, uncomplicated Congenital obstruction of ureteropelvic junction (UPJ) Depression Hypertension Nephrolithiasis Panic disorder Tobacco use disorder Surgical History History of cystoscopy STENT PLACED History of tonsillectomy History of ureter stent Family History Family/Other Family history of diabetes mellitus Mother Nephrolithiasis Unknown Vesicoureteral reflux Social History Smoking Status: Current every day smoker Tobacco Type: Cigarettes Cigarettes Per Day: 1-2 CIGS DAILY; Second Hand Exposure: No; Hx Alcohol Use: Yes Alcohol type: beer Hx Substance Use: Yes Last Used Substance Other:: 1 WEEK AGO Preferred Language: Austrian Communication Ability: Effective Card Sorter Required: No Beliefs That Will Affect Care: None Current Living Situation: Family Feels Safe at Home: Yes Assistive Devices: Glasses Review of Systems Constitutional: + chills and + malaise Gastrointestinal: + abdominal pain, + nausea and + vomiting; no change in bowel habits, no constipation and no diarrhea/loose stools Physical Exam Constitutional: WD/WN, vitals as above Respiratory: normal respiratory effort, lungs clear to auscultation Cardiovascular: Rate/Rhythm: regular rate Gastrointestinal (Abdomen): Inspection/Auscultation: abdomen normal to inspection; abdomen not distended Percussion/Palpation: + abdomen tender and abdomen soft; no guarding (mild RUQ/RLQ) Results & Data ([facility]) Vital Signs (Past 12 Hours) Vital Signs Temp Pulse Pulse Resp BP BP Pulse Ox 05/02/21 14:25 83 18 127/79 98 05/02/21 13:00 77 20 132/84 97 05/02/21 10:00 78 18 129/90 99 05/02/21 07:53 36.9 C 74 17 125/81 100 PG Care Time/CCT Total # of Minutes Spent Total Time Spent with Patient: Total time spent is greater than 50% in coordination of care (as documented) at patient's floor/unit and/or counseling patient: Coding Level of Care Code 57727 Inpt Consult Level 3 Diagnoses Nausea & vomiting R11.2
--- NOTE | 2021-05-02 16:01 | History & Physical Report ---
Date of Service May 02, 2021 Assessment & Plan (1) Acute cholecystitis: Plan: Patient presents to the hospital with abdominal pain, nausea and vomiting. Ultrasound of the abdomen and also CT abdomen and pelvis showed evidence of acute cholecystitis Will obtain HIDA scan Blood culture already obtained. Start empiric IV Zosyn Keep n.p.o. General surgery on consult (2) Nausea & vomiting: Plan: IV Zofran as needed IV normal saline 100 cc/h Plan: At home, patient takes medical marijuana, will hold. History of Present Illness Chief Complaint: Abdominal pain Primary Care Provider: Vishal Gonzalez MD This is a 25-year-old male with a history of kidney stones who presents to the hospital today on account of intractable nausea vomiting and abdominal pain. Some of the history was obtained from the patient's father was at the bedside. According to reports, patient had [employer] for dinner and soon after started having some abdominal pain which was initially insidious then later got worse. He was associated with nausea and and vomiting. Due to intractable vomiting, decision was made to bring him to the hospital. In the emergency department WBC was 12,000, the rest of CBC and BMP were within normal limits. An ultrasound of the gallbladder was done which showed evidence of edema of the gallbladder wall measuring 5 mm in diameter concerning for acute cholecystitis. CT abdomen confirmed distention of the gallbladder with fluid within the gallbladder wall. Patient has been evaluated by general surgery and a HIDA scan has been requested. Has been empirically started on IV Zosyn and will be admitted to the hospital for the management. Allergies Allergy/AdvReac Type Severity Reaction Status Date / Time No Known Allergies Allergy NONE KNOWN Verified 05/02/21 08:10 Home Medications Medication Instructions Recorded Confirmed Type dextroamphetamine-amphetamine 30 30 mg PO BID 02/16/21 05/02/21 History mg tablet (Adderall) multivitamin 1 tab PO QAM 02/16/21 05/02/21 History Medical Marijuana 1 dose PO UD 05/02/21 05/02/21 History Past Med/Surg History Medical History Anxiety Cannabis use, unspecified, uncomplicated Congenital obstruction of ureteropelvic junction (UPJ) Depression Hypertension Nephrolithiasis Panic disorder Tobacco use disorder Surgical History History of cystoscopy STENT PLACED History of tonsillectomy History of ureter stent Family History Family/Other Family history of diabetes mellitus Mother Nephrolithiasis Unknown Vesicoureteral reflux Social History Smoking Status: Current every day smoker Tobacco Type: Cigarettes Cigarettes Per Day: 1-2 CIGS DAILY; Second Hand Exposure: No; Hx Alcohol Use: Yes Alcohol type: beer Hx Substance Use: Yes Last Used Substance Other:: 1 WEEK AGO Preferred Language: Persian Communication Ability: Effective 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 Physical Exam Physical Exam: The patient is awake, alert and oriented 3, well developed and well nourished, normocephalic and atraumatic, lying in bed and in no acute distress. HEENT--PERRL, EOMI, mucous membranes and oropharynx mildly dry Neck--supple. No JVD. No bruits. Thyroid normal, trachea midline, no adenopathy. Heart--normal S1 and S2. No murmurs, rubs or gallops. Lungs--clear bilaterally, no respiratory distress, no accessory muscle use. Abdomen--guarding Extremities--no cyanosis or clubbing. No edema. Dermatologic--normal skin turgor, normal color, no abnormal lymph nodes, no rash. Neurologic--cranial nerves II through XII grossly intact. Rheumatologic--normal range of motion. Psychiatric--normal affect. Results & Data Results & Data ([facility]) Vital Signs (Past 12 Hours) Vital Signs Temp Pulse Pulse Resp BP BP Pulse Ox 05/02/21 14:25 83 18 127/79 98 05/02/21 13:00 77 20 132/84 97 05/02/21 10:00 78 18 129/90 99 05/02/21 07:53 98.4 F 74 17 125/81 100 Laboratory Results Laboratory Results - last 24 hr 1105/02/21 05/02/21 08:08 08:08 11:36 WBC 12.54 H RBC 5.18 Hgb 15.9 Hct 47.5 MCV 91.7 MCH 30.7 MCHC 33.5 RDW Std Deviation 44.4 RDW Coeff of Aundrea 13.2 Plt Count 282 MPV 9.5 Immature Gran % (Auto) 0.3 Neut % (Auto) 77.4 Lymph % (Auto) 14.8 Shannon % (Auto) 6.5 Eos % (Auto) 0.9 Baso % (Auto) 0.1 Neut # (Auto) 9.71 H Lymph # (Auto) 1.85 Shannon # (Auto) 0.82 H Eos # (Auto) 0.11 Baso # (Auto) 0.01 Immature Gran # (Auto) 0.04 H Sodium 142 Potassium 3.8 Chloride 104 Carbon Dioxide 31 Anion Gap 7.0 BUN 18 Creatinine 0.90 Est Cr Clr Drug Dosing Not Reportable Est GFR ( Amer) 136.1 Est GFR (Non-Af Amer) 117.5 BUN/Creatinine Ratio 20.2 H Glucose 145 H Calcium 9.4 Total Bilirubin 0.4 AST 24 ALT 28 Alkaline Phosphatase 57 Total Protein 8.6 H Albumin 4.6 Globulin 4.0 Albumin/Globulin Ratio 1.2 Lipase 131 Urine Color Yellow Urine Appearance Turbid A Urine pH >= 9.0 H Ur Specific [place] 1.024 Urine Protein 1+ H Urine Glucose (UA) Negative Urine Ketones Trace H Urine Blood Negative Urine Nitrite Negative Urine Bilirubin Negative Urine Urobilinogen Negative Ur Leukocyte Esterase Negative Urine WBC (Auto) 1-5 Urine RBC (Auto) 0-4 U Hyaline Cast (Auto) 1-5 U Epithel Cells (Auto) >30 H Urine Bacteria (Auto) Negative Ur Renal Epithelial Cell Not Reportable COVID-19 Eval Order SARS-CoV-2 (PCR) Influenza Type A Ag Influ A Molecular Assay Influenza Type B Ag Influ B Molecular Assay 05/02/21 05/02/21 05/02/21 11:54 11:54 11:54 WBC RBC Hgb Hct MCV MCH MCHC RDW Std Deviation RDW Coeff of Aundrea Plt Count MPV Immature Gran % (Auto) Neut % (Auto) Lymph % (Auto) Shannon % (Auto) Eos % (Auto) Baso % (Auto) Neut # (Auto) Lymph # (Auto) Shannon # (Auto) Eos # (Auto) Baso # (Auto) Immature Gran # (Auto) Sodium Potassium Chloride Carbon Dioxide Anion Gap BUN Creatinine Est Cr Clr Drug Dosing Est GFR ( Amer) Est GFR (Non-Af Amer) BUN/Creatinine Ratio Glucose Calcium Total Bilirubin AST ALT Alkaline Phosphatase Total Protein Albumin Globulin Albumin/Globulin Ratio Lipase Urine Color Urine Appearance Urine pH Ur Specific Benedict Urine Protein Urine Glucose (UA) Urine Ketones Urine Blood Urine Nitrite Urine Bilirubin Urine Urobilinogen Ur Leukocyte Esterase Urine WBC (Auto) Urine RBC (Auto) U Hyaline Cast (Auto) U Epithel Cells (Auto) Urine Bacteria (Auto) Ur Renal Epithelial Cell COVID-19 Eval Order Covid19 at [facility] SARS-CoV-2 (PCR) NEGATIVE Influenza Type A Ag Influ A Molecular Assay Cancelled Influenza Type B Ag Influ B Molecular Assay Cancelled 05/02/21 11:56 WBC RBC Hgb Hct MCV MCH MCHC RDW Std Deviation RDW Coeff of Aundrea Plt Count MPV Immature Gran % (Auto) Neut % (Auto) Lymph % (Auto) Shannon % (Auto) Eos % (Auto) Baso % (Auto) Neut # (Auto) Lymph # (Auto) Shannon # (Auto) Eos # (Auto) Baso # (Auto) Immature Gran # (Auto) Sodium Potassium Chloride Carbon Dioxide Anion Gap BUN Creatinine Est Cr Clr Drug Dosing Est GFR ( Amer) Est GFR (Non-Af Amer) BUN/Creatinine Ratio Glucose Calcium Total Bilirubin AST ALT Alkaline Phosphatase Total Protein Albumin Globulin Albumin/Globulin Ratio Lipase Urine Color Urine Appearance Urine pH Ur Specific Benedict Urine Protein Urine Glucose (UA) Urine Ketones Urine Blood Urine Nitrite Urine Bilirubin Urine Urobilinogen Ur Leukocyte Esterase Urine WBC (Auto) Urine RBC (Auto) U Hyaline Cast (Auto) U Epithel Cells (Auto) Urine Bacteria (Auto) Ur Renal Epithelial Cell COVID-19 Eval Order SARS-CoV-2 (PCR) Influenza Type A Ag Neg for Influ A Influ A Molecular Assay Influenza Type B Ag Neg for Influ B Influ B Molecular Assay Diagnostic Findings Vital Signs Temp Pulse Pulse Resp BP BP Pulse Ox 05/02/21 14:25 83 18 127/79 98 05/02/21 13:00 77 20 132/84 97 05/02/21 10:00 78 18 129/90 99 05/02/21 07:53 98.4 F 74 17 125/81 100 Intake and Output 05/02/21 05/02/21 05/02/21 06:59 14:59 22:59 Intake Total 2049.5 / 2049. Balance 2049. / Intake: IV 2049. / Promethazine 12.5 mg In 50.5 ml 50.5 / 50.5 @ 202 mls/hr IV NOW STA Rx#: [id number] Sodium Chloride 0.9% 1000ML 1, 2000 / 1999 000 ml @ 999 mls/hr IV .Q1H1M ONE Rx#:[id number] Other: Weight 141 lb 12.116 oz Weight Measurement Method Built in [facility] Patient Weight 05/03/21 06:59 Weight 141 lb 12.116 oz Code Status & VTE Plan VTE Prophylaxis Plan VTE Prophylaxis will be ordered: No PG Care Time/CCT Total # of Minutes Spent Total Time Spent with Patient: Total time spent is greater than 50% in coordination of care (as documented) at patient's floor/unit and/or counseling patient: Coding Level of Care Code 77002 Initial Inpt Care Lvl 3 Diagnoses Acute cholecystitis K81.0 Nausea & vomiting R11.2
[2021-05-02] MEDS ORDERED: ONDANSETRON INJ 2 MG/ML 2 ML VIAL IV PRN (17:20)
[2021-05-02] MEDS ORDERED: PIPERACILL/TAZOBAC CONSULT ACTIVE PRN (17:20)
[2021-05-02] MEDS ORDERED: FLUARIX QUADRIVALENT 0.5 ML SYR IM ONE (17:37)
[2021-05-02] MEDS ORDERED: PIPERACILLIN/TAZOBACTAM 3.375 GM in DEXTROSE 5% 100 ML IV ONE (18:00)
[2021-05-02] MEDS: SODIUM CHLORIDE 0.9% 500 ML IV SCH (18:14)
[2021-05-02] MEDS ORDERED: AMPHETAMINE ASP/SULF/DEXTRAMPH 10 MG TAB PO SCH (21:00)
[2021-05-03] MEDS: PIPERACILLIN/TAZOBACTAM 3.375 GM in DEXTROSE 5% 100 ML IV SCH ×4 (00:03→23:11)
[2021-05-03] MEDS: PROMETHAZINE HCL 25 MG/20 ML UDP PO PRN ×2 (00:05→10:13)
[2021-05-03] MEDS ORDERED: POLYETHYLENE (MIRALAX) 17 GM PACK PO PRN (01:09)
[2021-05-03] MEDS ORDERED: ACETAMINOPHEN 325 MG TAB PO PRN (01:09)
[2021-05-03] MEDS: SODIUM CHLORIDE 0.9% 500 ML IV SCH (03:51)
[2021-05-03] MEDS: SODIUM CHLORIDE 0.9% 1,000 ML IV SCH ×3 (04:27→21:49)
[2021-05-03] MEDS: MULTIVITAMIN TAB PO SCH ×2 (10:12→10:14)
[2021-05-03] MEDS: AMPHETAMINE ASP/SULF/DEXTRAMPH 10 MG TAB PO SCH ×3 (10:12→17:22)
[2021-05-03 10:28] LABS: Basophils # (auto) 0.02 K/uL (0-0.2); Basophils % (auto) 0.2 %; Eosinophils # (auto) 0.05 K/uL (0-0.5); Eosinophils % (auto) 0.6 %; Hematocrit (blood only) 41.4 % (42-52); Immature Granulocytes # (auto) 0.02 K/uL (0.00-0.02); Immature Granulocytes % (auto) 0.2 %; Lymphocytes # (auto) 2.87 K/uL (1.2-3.4); Mean Corpuscular Hemoglobin 30.4 pg (25-34); Mean Corpuscular Hgb Conc 33.8 g/dL (32-36); Mean Corpuscular Volume 89.8 fL (80-100); Mean Platelet Volume 9.5 fL (7.4-10.4); Monocytes # (auto) 1.22 K/uL (0.11-0.59); Monocytes % (auto) 14.5 %; Neutrophils # (auto) 4.25 K/uL (1.4-6.5); Neutrophils % (auto) 50.5 %; Platelet Count 236 K/uL (130-400); RDW Coefficient of Variation 13.7 % (11.5-14.5); RDW Standard Deviation 45.1 fL (36.4-46.3); Red Blood Count 4.61 M/uL (4.7-6.1); White Blood Count 8.43 K/uL (4.8-10.8)
--- NOTE | 2021-05-03 10:32 | Nuclear Medicine Report ---
NM hepatobiliary EF CLINICAL HISTORY: acute cholecystitis. COMPARISON: Gallbladder ultrasound from 05/02/2021 RADIOPHARMACEUTICAL: 5.4 mCi Tc99m choletec IV TECHNIQUE: Following intravenous administration of Tc-99m Choletec, sequential abdominal images were obtained. Subsequently, in order to evaluate the contractile response of the gallbladder in response to cholecystokinin, the supplement Boost was given to the patient to drink approximately 60 minutes after the administration of the radiopharmaceutical. FINDINGS: There is prompt and uniform accumulation of tracer by the liver. The gallbladder fills. Ho wever, there is no evidence for activity within the common bile duct or small bowel. Sequential imaging was continued for 47 minutes after the start of the Boost ingestion. Post ingestio n images demonstrate significantly decreased gallbladder contraction. Gallbladder Ejection Fraction (Reference: normal GBEF > 35%): 19 % IMPRESSION: Significant decreased gallbladder ejection fraction. In conjunction with the patient's ga llbladder ultrasound findings, the findings are characteristic of early acute cholecystitis. ACT 112: Negative or not required by law. Electronically signed by: Shayan Garcia M.D. 05/03/2021 10:31 AM
--- NOTE | 2021-05-03 12:29 | Anesthesiology Consultation ---
Date of Service May 03, 2021 Assessment & Plan (1) Encounter for pre-operative examination: Chart Review Chart Review: Acceptable Risk for Surgery and Patient NOT seen in Pre Admission Testing Consults Requested none History Surgery Operation Date: 05/03/21 12:30 Proposed Procedures p Laparoscopic Cholecystectomy - Raymond Zhao DO, DAVID Height/Weight Height: 5 ft 10 in Weight: 64.3 kg Allergies Allergy/AdvReac Type Severity Reaction Status Date / Time No Known Allergies Allergy NONE KNOWN Verified 05/02/21 08:10 Medications Home Medications Medication Instructions Recorded Confirmed Last Taken dextroamphetamine-amphetamine 30 30 mg PO BID 02/16/21 05/02/21 05/01/21 mg tablet (Adderall) multivitamin 1 tab PO QAM 02/16/21 05/02/21 05/01/21 Medical Marijuana 1 dose PO UD 05/02/21 05/02/21 04/30/21 Active Medications Generic Name Dose Route Start Last Admin Trade Name Freq PRN Reason Stop Dose Admin Acetaminophen 650 mg 05/03/21 01:09 05/03/21 01:23 Acetaminophen 325 Mg Tab PO 06/02/21 01:08 650 mg Q4H PRN Administration pain/fever Amphetamine/Dextroamphetamine 30 mg 05/03/21 08:00 05/03/21 10:15 Amphetamine Asp/Sulf/Dextramph 10 Mg Tab PO 05/16/21 20:59 Not Given BID@0800,1700 DIANA Piperacillin Sod/Tazobactam 115 mls @ 28.75 mls/hr 05/03/21 00:00 05/03/21 10:12 Sod 3.375 gm/ Dextrose IV 05/05/21 00:00 28.8 mls/hr Q8H DIANA Administration Protocol Sodium Chloride 1,000 mls @ 80 mls/hr 05/03/21 03:55 05/03/21 10:33 Nss IV 06/02/21 03:54 80 mls/hr .[id number] DIANA Infusion Multivitamins 1 tab 05/03/21 09:00 05/03/21 10:14 Multivitamin Tab PO 06/02/21 08:59 Not Given QAM DIANA Ondansetron HCl 4 mg 05/02/21 17:20 05/02/21 22:32 Ondansetron Inj 2 Mg/Ml 2 Ml Vial IV 06/01/21 17:19 4 mg Q4H PRN Administration Nausea Promethazine HCl 25 mg 05/02/21 23:05 05/03/21 10:13 Promethazine Hcl 25 Mg/20 Ml Udp PO 06/01/21 23:04 25 mg Q6H PRN Administration Nausea And Vomiting NPO Date Last Intake of Fluids: 05/02/21 Time Last Intake of Fluids: 23:59 Date Last Intake of Solids: 05/02/21 Time Last Intake of Solids: 23:59 Past Medical History Medical History Anxiety Cannabis use, unspecified, uncomplicated Congenital obstruction of ureteropelvic junction (UPJ) Depression Hypertension Nephrolithiasis Panic disorder Tobacco use disorder Past Family History Family History Family/Other Family history of diabetes mellitus Mother Nephrolithiasis Unknown Vesicoureteral reflux Past Surgical History Surgical History History of cystoscopy STENT PLACED History of tonsillectomy History of ureter stent Social History Smoking Status: Light tobacco smoker tobacco type: cigarettes Smoking cigarettes per day: 1-2 CIGS DAILY Do You Dip or Chew Tobacco: No Hx Alcohol Use: Yes Alcohol type: beer alcohol intake frequency: a few times a month Hx Substance Use: Yes substance use type: marijuana Substance Use Type Other:: Medical Marijuana Last Used Substance: Days (ago) Last Used Substance Other:: 05/01/21 Physical Exam Vital Signs Last Vital Signs Temp 98.8 F 05/03/21 07:33 Pulse 71 05/03/21 07:33 Resp 18 05/03/21 07:33 BP 102/62 05/03/21 07:33 Pulse Ox 98 05/03/21 07:33 Testing Laboratory Results 05/03/21 10:12 05/02/21 08:08 Urine Color Yellow 05/02/21 11:36 Urine Appearance Turbid (Clear) A 05/02/21 11:36 Urine pH >= 9.0 (4.5-7.5) H 05/02/21 11:36 Ur Specific [place] 1.024 (1.000-1.030) 05/02/21 11:36 Urine Protein 1+ (Negative) H 05/02/21 11:36 Urine Glucose (UA) Negative (Negative) 05/02/21 11:36 Urine Ketones Trace (Negative) H 05/02/21 11:36 Urine Nitrite Negative (Negative) 05/02/21 11:36 Ur Leukocyte Esterase Negative (Negative) 05/02/21 11:36 Urine WBC (Auto) 1-5 /hpf (0-5) 05/02/21 11:36 Urine RBC (Auto) 0-4 /hpf (0-4) 05/02/21 11:36 U Hyaline Cast (Auto) 1-5 /lpf (0-5) 05/02/21 11:36 U Epithel Cells (Auto) >30 /lpf (0-5) H 05/02/21 11:36 Urine Bacteria (Auto) Negative (Negative) 05/02/21 11:36
--- NOTE | 2021-05-03 12:46 | Hospitalist Progress Note ---
Date of Service May 03, 2021 Assessment & Plan (1) Acute cholecystitis: Plan: Patient presents to the hospital with abdominal pain, nausea and vomiting. Ultrasound of the abdomen and also CT abdomen and pelvis showed evidence of acute cholecystitis HIDA scan done this morning confirmed acute cholecystitis Blood culture already obtained. Continue empiric IV Zosyn General surgery on consult, appreciate recs (2) Nausea & vomiting: Plan: IV Zofran as needed IV normal saline 100 cc/h Plan: At home, patient takes medical marijuana, will hold. Admission and Anticipated Discharge Date Admission Date: May 02, 2021 Subjective patient seen and examined today, says abdominal pain is better. Just came back from [facility] Review of Systems Review of Systems: All systems reviewed are negative, apart from the ones contained in the history. Physical Exam Physical Exam: The patient is awake, alert and oriented 3, well developed and well nourished, normocephalic and atraumatic, lying in bed and in no acute distress. HEENT--PERRL, EOMI, mucous membranes and oropharynx mildly dry Neck--supple. No JVD. No bruits. Thyroid normal, trachea midline, no adenopathy. Heart--normal S1 and S2. No murmurs, rubs or gallops. Lungs--clear bilaterally, no respiratory distress, no accessory muscle use. Abdomen--improving tenderness Extremities--no cyanosis or clubbing. No edema. Dermatologic--normal skin turgor, normal color, no abnormal lymph nodes, no rash. Neurologic--cranial nerves II through XII grossly intact. Rheumatologic--normal range of motion. Psychiatric--normal affect. Results & Data Results & Data ([facility]) Vital Signs (Past 12 Hours) Vital Signs Temp Pulse Resp BP Pulse Ox 05/03/21 07:33 98.8 F 71 18 102/62 98 Laboratory Results Laboratory Results - last 24 hr 05/02/21 05/03/21 11:54 10:12 WBC 8.43 RBC 4.61 L Hgb 14.0 Hct 41.4 L MCV 89.8 MCH 30.4 MCHC 33.8 RDW Std Deviation 45.1 RDW Coeff of Aundrea 13.7 Plt Count 236 MPV 9.5 Immature Gran % (Auto) 0.2 Neut % (Auto) 50.5 Lymph % (Auto) 34.0 [place] % (Auto) 14.5 Eos % (Auto) 0.6 Baso % (Auto) 0.2 Neut # (Auto) 4.25 Lymph # (Auto) 2.87 [place] # (Auto) 1.22 H Eos # (Auto) 0.05 Baso # (Auto) 0.02 Immature Gran # (Auto) 0.02 SARS-CoV-2 (PCR) NEGATIVE PG Care Time/CCT Total # of Minutes Spent Total Time Spent with Patient: Total time spent is greater than 50% in coordination of care (as documented) at patient's floor/unit and/or counseling patient: Coding Level of Care Code 22260 Subseq Hosp Care Lvl 2 Diagnoses Acute cholecystitis K81.0 Nausea & vomiting R11.2
--- NOTE | 2021-05-03 13:19 | Surgery Progress Note ---
Date of Service May 03, 2021 Assessment & Plan (1) Nausea & vomiting: Plan: Patient here with n/v/abdominal pain CT and RUQ US yesterday showed evidence of portal edema, no overt concern for cholecystitis Today a HIDA scan was obtained for further evaluation which revealed an EF of 19% with findings concerning for early acute cholecystitis Continue patient NPO with IVF and IV abx We will discuss proceeding with surgical intervention today with patient Admission and Anticipated Discharge Date Admission Date: May 02, 2021 Supervising Physician Co-Signing Physician Notes Patient seen and examined, labs and imaging reviewed, agree with above. 25-year-old male admitted yesterday with nausea, vomiting, and right upper quadrant abdominal pain. CT with periportal edema and suggested of possible cholecystitis. Right upper quadrant ultrasound with no stones but distended gallbladder with pericholecystic fluid. Given his history, he was admitted to medicine and a HIDA scan was ordered. That was completed this morning and showed filling of the gallbladder but a decreased ejection fraction of 19%. He did report symptoms near the end of the exam. He is still having nausea and tender in the right upper quadrant. We discussed the fact that his symptoms may or may not be related to his gallbladder and that the ejection fraction may be secondary to other inflammatory condition, and after discussion of his options he elects for surgery. Plan for laparoscopic cholecystectomy possible cholangiogram The risk the procedure were discussed to include but not limited to bleeding, infection, retained stone, bile leak, damage surrounding structures including common bile duct, need for future more extensive surgery, conversion open, and the risk of anesthesia Subjective Patient said he was with nausea/vomiting this AM, but has felt better since HIDA scan. His abdominal pain is somewhat improved since HIDA. Physical Exam Physical Exam: awake/alert Results & Data ([facility]) Vital Signs (Past 12 Hours) Vital Signs Temp Pulse Resp BP Pulse Ox 05/03/21 07:33 37.1 C 71 18 102/62 98 Laboratory Results Laboratory Results - last 24 hr 05/03/21 10:12 WBC 8.43 RBC 4.61 L Hgb 14.0 Hct 41.4 L MCV 89.8 MCH 30.4 MCHC 33.8 RDW Std Deviation 45.1 RDW Coeff of Aundrea 13.7 Plt Count 236 MPV 9.5 Immature Gran % (Auto) 0.2 Neut % (Auto) 50.5 Lymph % (Auto) 34.0 Lyon % (Auto) 14.5 Eos % (Auto) 0.6 Baso % (Auto) 0.2 Neut # (Auto) 4.25 Lymph # (Auto) 2.87 Lyon # (Auto) 1.22 H Eos # (Auto) 0.05 Baso # (Auto) 0.02 Immature Gran # (Auto) 0.02 Diagnostic Findings NM hepatobiliary EF CLINICAL HISTORY: acute cholecystitis. COMPARISON: Gallbladder ultrasound from 05/02/2021 RADIOPHARMACEUTICAL: 5.4 mCi Tc99m choletec IV TECHNIQUE: Following intravenous administration of Tc-99m Choletec, sequential abdominal images were obtained. Subsequently, in order to evaluate the contractile response of the gallbladder in response to cholecystokinin, the supplement Boost was given to the patient to drink approximately 60 minutes after the administration of the radiopharmaceutical. FINDINGS: There is prompt and uniform accumulation of tracer by the liver. The gallbladder fills. However, there is no evidence for activity within the common bile duct or small bowel. Sequential imaging was continued for 47 minutes after the start of the Boost ingestion. Post ingestion images demonstrate significantly decreased gallbladder contraction. Gallbladder Ejection Fraction (Reference: normal GBEF > 35%): 19 % IMPRESSION: Significant decreased gallbladder ejection fraction. In conjunction with the patient's gallbladder ultrasound findings, the findings are charact eristic of early acute cholecystitis. PG Care Time/CCT Total # of Minutes Spent Total Time Spent with Patient: Total time spent is greater than 50% in coordination of care (as documented) at patient's floor/unit and/or counseling patient: Coding Level of Care Code 93689 Subseq Hosp Care Lvl 1 Diagnoses Nausea & vomiting R11.2
[2021-05-03] MEDS ORDERED: ePHEDrine sulfate 50 MG/ML AMP IV PRN (14:05)
[2021-05-03] MEDS ORDERED: ATROPINE SULFATE 0.1 MG/ML 10ML SYR IV PRN (14:05)
[2021-05-03] MEDS ORDERED: ONDANSETRON INJ 2 MG/ML 2 ML VIAL IV PRN (14:05)
[2021-05-03] MEDS ORDERED: MIDAZOLAM HCL 1 MG/ML 2ML VIAL ONE (14:27)
[2021-05-03] MEDS ORDERED: ONDANSETRON INJ 2 MG/ML 2 ML VIAL ONE (14:27)
[2021-05-03] MEDS ORDERED: GLYCOPYRROLATE 0.2 MG/ML VIAL ONE (14:27)
[2021-05-03] MEDS ORDERED: LIDOCAINE 2% 2 ML VIAL/AMP(20MG/ML) INFIL ONE (14:27)
[2021-05-03] MEDS ORDERED: NEOSTIGMINE METHYLSULFATE 1 MG/ML 10ML VIAL ONE (14:27)
[2021-05-03] MEDS ORDERED: PROPOFOL IV EMULSION 10 MG/ML 20 ML VIAL IV ONE (14:27)
[2021-05-03] MEDS ORDERED: DEXAMETHASONE SOD INJ 4 MG/ML VIAL ONE (14:27)
[2021-05-03] MEDS ORDERED: ROCURONIUM BROMIDE 10 MG/ML 5 ML VIAL IV ONE (14:27)
[2021-05-03] MEDS ORDERED: HYDROmorphone INJ 1 MG/ML SYRINGE ONE ×2 (14:28→15:41)
[2021-05-03] MEDS ORDERED: BUPIVACAINE 0.5 % 5 MG/1 ML MPF 30ML VIAL ONE (14:36)
--- NOTE | 2021-05-03 15:33 | Operative Report ---
PG Post Operative Report Pre & Post Diagnosis Operation Date: 05/03/21 12:30 Pre-Op Diagnosis: Acute cholecystitis Post-Op Diagnosis: Acute cholecystitis I identified the patient and participated in the time-out.: Yes Procedure Operation Date: 05/03/21 12:30 Actual Procedures p Laparoscopic Cholecystectomy(Not Applicable) - Raymond Zhao DO, DAVID Surgeon Raymond Zhao DO, FACS Food Safety Specialist Angel Luis Lazo Estimated Blood Loss 5 Findings Consistent with Post-Op Diagnosis Mild inflammation. Critical view of safety obtained, cystic duct and artery doubly clipped and divided. Posterior branch clipped and divided. Good hemostasis. Specimens Gallbladder Anesthesia Type General Complications none Disposition Accompanied Patient To Recovery: No Disposition: Recovery Room Indications 25-year-old male admitted with concern for acute cholecystitis, plan for laparoscopic cholecystectomy with possible cholangiogram. The risks of the procedure were discussed, all questions were answered, and the patient agreed to proceed with surgery as planned. Description of Procedure The patient was properly identified, consented, and taken to the operating room where he was placed in the supine position. General endotracheal anesthesia was induced. SCDs and a safety belt were placed. Preoperative antibiotics were administered. The patient's abdomen was prepped and draped in the standard sterile fashion. A surgical timeout was performed and all parties were in agreement that this was the correct patient and procedure to be performed and we continued as planned. An incision was made superior and to the left of the umbilicus overlying the rectus muscle and the Veress needle was inserted. Saline drop test confirmed entry into the peritoneum. The abdomen was insufflated with carbon dioxide which the patient tolerated without incident. The abdomen was then entered using the Optiview technique and a 5 mm trocar. The laparoscope was inserted and no damage from initial trocar or Veress needle placement was noted, no gross abnormalities were noted within the 4 quadrants of the abdomen. An 11 mm port was placed in the subxiphoid position and two 5 mm ports were then placed in the right subcostal position. The patient was placed in reverse Trendelenburg position and rotated towards the left. The gallbladder was mildly inflamed. The dome of the gallbladder was retracted towards the left upper quadrant and the infundibulum was retracted toward the right lower quadrant revealing Calot's triangle. Peritoneal attachments were taken down with electrocautery and blunt dissection. The cystic duct and artery were circumferentially dissected. A window of safety was obtained showing the cystic duct entering the gallbladder with no aberrant structures noted. The cystic duct and artery were doubly clipped and divided. The posterior branch of the artery was clipped and divided. The gallbladder was then lifted off the gallbladder fossa with electrocautery. The gallbladder was placed in an Endo Catch bag and removed through the subxiphoid port site. The right upper quadrant was irrigated and hemostasis was found to be good. 5 mm trochars were removed under direct visualization and the abdomen was allowed to collapse. The subxiphoid port site fascia was closed with 0 Vicryl suture utilizing the C lidia-Jung device prior to removal of the ports. The wound was irrigated, and the skin of all ports was closed with 4-0 Monocryl subcuticular sutures. Dermabond was placed over the wounds. The patient was extubated in the operating room and taken to the PACU where he recovered without apparent incident. All sponge, instrument and needle counts were correct at the conclusion of the procedure. The patient tolerated the procedure well. The physician's operations assistant was present and scrubbed for the entirety of the case and was essential in positioning the patient, prepping and draping, retraction and exposure, driving the laparoscope, removal of the gallbladder, closure the incisions, and placement of the dressings. I attest to the content of the Intraoperative Record and any orders documented therein. Any exceptions are noted below.
[2021-05-03] MEDS: fentaNYL citrate 100 MCG/2 ML VIAL IV PRN ×2 (15:52→15:57)
[2021-05-03] MEDS ORDERED: MoRPHine SULFATE 4 MG/ML 1 ML CARP\\VIAL IV PRN (16:36)
[2021-05-03] MEDS: MoRPHine SULFATE 2 MG/ML CARP IV PRN ×3 (17:39→22:31)
--- NOTE | 2021-05-03 18:21 | Anesthesiology Progress Note ---
Date of Service May 03, 2021 Anesthesia Post Procedure Vital Signs Vital Signs: Temp Pulse Pulse Resp BP BP Pulse Ox 05/03/21 17:25 36.9 C 67 14 125/83 91 05/03/21 17:05 36.9 C 51 L 14 138/90 90 05/03/21 16:35 36.9 C 50 L 14 127/87 91 05/03/21 16:15 37.2 C 55 L 20 127/88 94 05/03/21 16:05 63 20 124/86 95 05/03/21 15:55 90 15 130/85 95 05/03/21 15:48 36.6 C 96 H 12 146/95 H 96 05/03/21 13:40 37.2 C 58 L 18 124/79 96 05/03/21 07:33 37.1 C 71 18 102/62 98 05/03/21 00:15 37.7 C H 05/02/21 21:56 37.5 C 72 16 115/56 L 95 Pain Intensity Bilateral Abdomen: Pain Intensity: 7 Transfer of Care Handoff Completed per policy Notes Mental Status: alert / awake / arousable and participated in evaluation Patient Amnestic to Procedure: Yes Nausea / Vomiting: adequately controlled Pain: adequately controlled Airway Patency, RR, SpO2: stable & adequate BP & HR: stable & adequate Hydration State: stable & adequate Anesthetic Complications: no major complications apparent and Pt Satisfied with anesthetic care
[2021-05-04] MEDS: SODIUM CHLORIDE 0.9% 1,000 ML IV SCH (04:11)
[2021-05-04] MEDS: MoRPHine SULFATE 2 MG/ML CARP IV PRN ×2 (04:11→07:49)
[2021-05-04 06:35] LABS: Hemoglobin 13.1 g/dL (14.0-18.0); Mean Corpuscular Hgb Conc 33.6 g/dL (32-36); Mean Corpuscular Volume 89.4 fL (80-100); Mean Platelet Volume 9.5 fL (7.4-10.4); Platelet Count 209 K/uL (130-400); RDW Coefficient of Variation 13.4 % (11.5-14.5); RDW Standard Deviation 44.3 fL (36.4-46.3); Red Blood Count 4.36 M/uL (4.7-6.1); White Blood Count 9.76 K/uL (4.8-10.8)
[2021-05-04 07:08] LABS: Calcium 8.5 mg/dl (8.5-10.1); Creatinine Clr Calc Pharmacy 115.7 ml/min; Est GFR (African American) 137.4 ml/min; Est GFR (Non-African American) 118.6 ml/min
--- NOTE | 2021-05-04 07:40 | Surgery Progress Note ---
Date of Service May 04, 2021 Assessment & Plan (1) Abdominal pain, acute, right upper quadrant: Plan: POD 1 lap joy advance diet as ami recheck later today Admission and Anticipated Discharge Date Admission Date: May 02, 2021 Supervising Physician Co-Signing Physician Notes pnt S&E, agree with above. POD#1 lap joy, doing well, feels better, no n/v. Tolerating clears. AFVSS. Abd soft, appropriately ttp, incisions w/o infection. adv diet, d/c to home later today. wound care instructions, activit y restrictions and return precautions reviewed. f/u in 2 weeks in surgery clinic. Subjective some incision pain, no further N/V Physical Exam Gastrointestinal (Abdomen): Inspection/Auscultation: + abdominal surgical incision (dry); abdomen not distended Percussion/Palpation: abdomen soft Results & Data ([facility]) Vital Signs (Past 12 Hours) Vital Signs Temp Pulse Resp BP Pulse Ox 05/04/21 07:23 36.7 C 54 L 15 115/69 98 05/03/21 23:03 37.1 C 48 L 16 122/67 99 PG Care Time/CCT Total # of Minutes Spent Total Time Spent with Patient: Total time spent is greater than 50% in coordination of care (as documented) at patient's floor/unit and/or counseling patient: Coding Level of Care Code None Diagnoses Abdominal pain, acute, right upper quadrant R10.11
[2021-05-04] MEDS: PIPERACILLIN/TAZOBACTAM 3.375 GM in DEXTROSE 5% 100 ML IV SCH (08:51)
[2021-05-04] MEDS ORDERED: oxyCODONE/ACETAMINOPHEN 5mg/325mg TAB PO PRN (08:51)
[2021-05-04] MEDS: MULTIVITAMIN TAB PO SCH (08:52)
[2021-05-04] MEDS: AMPHETAMINE ASP/SULF/DEXTRAMPH 10 MG TAB PO SCH (08:53)
[2021-05-04] MEDS: oxyCODONE/ACETAMINOPHEN 5mg/325mg TAB PO PRN ×2 (12:48→15:08)
--- NOTE | 2021-05-04 14:21 | Discharge Summary ---
Date of Service May 04, 2021 Admission HPI Per Admitting Provider This is a 25-year-old male with a history of kidney stones who presents to the hospital today on account of intractable nausea vomiting and abdominal pain. Some of the history was obtained from the patient's father was at the bedside. According to reports, patient had [employer] for dinner and soon after started having some abdominal pain which was initially insidious then later got worse. He was associated with nausea and and vomiting. Due to intractable vomiting, decision was made to bring him to the hospital. In the emergency department WBC was 12,000, the rest of CBC and BMP were within normal limits. An ultrasound of the gallbladder was done which showed evidence of edema of the gallbladder wall measuring 5 mm in diameter concerning for acute cholecystitis. CT abdomen confirmed distention of the gallbladder with fluid within the gallbladder wall. Patient has been evaluated by general surgery and a HIDA scan has been requested. Has been empirically started on IV Zosyn and will be admitted to the hospital for the management. Upon further hospitalization, HIDA confirmed evidence of acute cholecystitis and he was subsequently taken to the OR for lap joy. he tolerated the procedure and also tolerated diet. He was discharged home in stable condition, to follow up with surgery in 2 weeks Principal Diagnosis acute cholecystitis Discharge Exam The patient is awake, alert and oriented 3, well developed and well nourished, normocephalic and atraumatic, lying in bed and in no acute distress. HEENT--PERRL, EOMI, mucous membranes and oropharynx mildly dry Neck--supple. No JVD. No bruits. Thyroid normal, trachea midline, no adenopathy. Heart--normal S1 and S2. No murmurs, rubs or gallops. Lungs--clear bilaterally, no respiratory distress, no accessory muscle use. Abdomen--improving tenderness Extremities--no cyanosis or clubbing. No edema. Dermatologic--normal skin turgor, normal color, no abnormal lymph nodes, no rash. Neurologic--cranial nerves II through XII grossly intact. Rheumatologic--normal range of motion. Psychiatric--normal affect. Discharge Data Allergies Allergy/AdvReac Type Severity Reaction Status Date / Time No Known Allergies Allergy NONE KNOWN Verified 05/02/21 08:10 Consultations 05/02/21 17:20 Consult General Surgery Routine Procedures Performed Operation Date: 05/03/21 12:30 Actual Procedures p Laparoscopic Cholecystectomy(Not Applicable) - Raymond Zhao DO, FACS Ordered Studies 05/02/21 11:40 CT abd pelvis IV con only Stat 05/02/21 13:22 US gallbladder Stat Hospital Course (1) Acute cholecystitis: Patient presents to the hospital with abdominal pain, nausea and vomiting. Ultrasound of the abdomen and also CT abdomen and pelvis showed evidence of acute cholecystitis HIDA scan done this morning confirmed acute cholecystitis Blood culture already obtained. Continue empiric IV Zosyn General surgery on consult, appreciate recs Lap joy done Total Time Total Time Spent Total Time Spent (In Minutes): 35 min Discharge Plan Discharge Items Patient Disposition: Home - Self-Care Reason For Visit: ABDOMINAL PAIN Discharge Diagnosis: laparoscopic cholecystectomy Condition on Discharge: Good Activity: Per Instructions section Lifting: No more than 10 pounds Bathing Comment: may shower; no soaking in tubs/pools Exercise/Sports: Wait until after follow-up appointment Driving/Machine Use: no driving while taking narcotics for pain Non-emergency contact: Primary Care Provider Call non-emergency contact if: you have any medication questions, your symptoms worsen, your pain is not controlled, your pain is worsening, you have a fever, your temperature is above 101.5, your wound has increased redness, your wound has increased drainage and your wound pain has increased Follow-up/Referrals: Raymond Zhao DO, FACS [Physician] - (Please call to schedule follow up in clinic within 2 weeks) Vishal Gonzalez MD [Primary Care Provider] - Diet: Regular Addtl Attending Provider Instructions: Please make appointment to follow up with general surgery in 2 weeks Pending Studies at Discharge: Yes Studies:: surgical pathology Stand-Alone Forms: [facility] [employer], Smoking Cessation Medications and DC Order Prescriptions: New oxycodone-acetaminophen [Percocet] 5-325 mg tablet 1 - 2 tab PO .q4-6h PRN (Reason: pain, for initial therapy, max 6 tabs per day) Qty: 15 RF: 0 Continued Medical Marijuana 1 dose PO UD RF: 0 multivitamin Tablet 1 tab PO QAM RF: 0 dextroamphetamine-amphetamine [Adderall] 30 mg tablet 30 mg PO BID RF: 0 Discharge Orders: Discharge Order (Routine); Ordered 05/04/21 Ordered By: Elijah Gutierrez Admission Data Admit Date/Time: 05/02/21 15:47 Attending Provider: Elijah Gutierrez Admit Provider: Elijah Gutierrez Primary Care Provider: Vishal Gonzalez Other Providers: Raymond Zhao Coding Level of Care Code D/C DAY MANAGEMENT >30 MINS Diagnoses Acute cholecystitis K81.0
== END 2021-05-04 15:24 | disposition home or self-care (01) ==
LOC: ED 07:49 → INTOOBSV 15:47 → 3N 15:47

== ENCOUNTER 2022-12-25 11:11 | Inpatient (IN) ==
[2022-12-25] MEDS ORDERED: PROCHLORPERAZINE 2 ML IV ONE (12:22)
[2022-12-25] MEDS ORDERED: diphenhydrAMINE 50 MG/ML VIAL IV STA (12:22)
--- NOTE | 2022-12-25 12:27 | Emergency Department Note ---
History of Present Illness General Chief complaint: Flank Pain Stated complaint: POSSIBLE KIDNEY STONES Time Seen by Provider: 12/25/22 12:10 History of Present Illness Maximum Pain Intensity: 9 Patient is a 27-year-old male with past medical history significant for ADD, anxiety, depression, panic disorder, medicinal marijuana use for "chronic kidney stones" and status post cholecystectomy who presents emergency department for evaluation of nausea, vomiting, diarrhea and right-sided abdominal pain. Symptoms started acutely around 0400 today. He reports right flank/right-sided abdominal pain, and roughly 10 episodes of vomiting and diarrhea each. Nonbloody, nonmelanotic per the patient. He has voided this morning, reports that it is not grossly bloody. He has not tried taking any medications for his symptoms. He is concerned that he could be "passing another kidney stone." Remote history of kidney stones in 2018 which which did required lithotripsy. Home Medications Medication Instructions Recorded Confirmed Type dextroamphetamine-amphetamine 30 30 mg PO BID 02/16/21 12/25/22 History mg tablet (Adderall) multivitamin 1 tab PO QAM 02/16/21 12/25/22 History Medical Marijuana 1 dose PO UD 05/02/21 12/25/22 History Allergies Allergy/AdvReac Type Severity Reaction Status Date / Time No Known Allergies Allergy NONE KNOWN Verified 12/25/22 13:03 Past Med/Surg History Medical History Anxiety Cannabis use, unspecified, uncomplicated Congenital obstruction of ureteropelvic junction (UPJ) Depression Hypertension Nephrolithiasis Panic disorder Tobacco use disorder Surgical History History of cystoscopy STENT PLACED History of tonsillectomy History of ureter stent Hx laparoscopic cholecystectomy (05/03/21) Laparoscopic Cholecystectomy 05-03-2021 - Raymond Zhao DO, FACS Family History Family/Other Family history of diabetes mellitus Mother Nephrolithiasis Unknown Vesicoureteral reflux Social History Smoking Status: Former smoker Tobacco Type: Cigarettes Cigarettes Per Day: 1-2 CIGS DAILY; Second Hand Exposure: No; Do You Dip or Chew Tobacco: No; Hx Alcohol Use: Yes Alcohol type: beer Hx Substance Use: Yes Last Used Substance: Days (ago) Last Used Substance Other:: 05/01/21 Substance Use Type Other:: Medical Marijuana Preferred Language: Russian Communication Ability: Effective Associate Software Application Engineer Required: No Beliefs That Will Affect Care: None Current Living Situation: Parent Feels Safe at Home: Yes Assistive Devices: None Review of Systems A total of 10 systems reviewed and were otherwise negative Physical Exam Vital Signs Vital Signs - 24 hr 12/25/22 11:36 12/25/22 13:12 12/25/22 16:09 Temperature 36.1 C L Temperature Source Temporal Artery Scan Pulse Rate 66 Pulse Rate [Left Finger] 60 60 Respiratory Rate 20 20 20 Respiratory Effort / Characteristics Non-Labored Respiratory Depth Normal Blood Pressure 130/89 Blood Pressure [Right Arm] 123/88 116/87 Blood Pressure Mean 102 Blood Pressure Mean [Right Arm] 99 96 Pulse Oximetry 100 98 99 Oxygen Delivery Method Room Air Room Air Sepsis Recent Fever Within 48 Hours No Sepsis New/Unexplained Change in Mental Status N/A Sepsis Action Taken by Nursing No Action Required 12/25/22 18:00 12/25/22 19:20 12/25/22 19:31 Temperature Temperature Source Pulse Rate 62 Pulse Rate [Left Finger] 55 L 51 L Respiratory Rate 19 16 Respiratory Effort / Characteristics Non-Labored Non-Labored Spontaneous Respiratory Depth Normal Blood Pressure Blood Pressure [Right Arm] 129/91 123/73 Blood Pressure Mean Blood Pressure Mean [Right Arm] 103 89 Pulse Oximetry 99 99 Oxygen Delivery Method Room Air Room Air Sepsis Recent Fever Within 48 Hours Sepsis New/Unexplained Change in Mental Status Sepsis Action Taken by Nursing CONSTITUTIONAL:Patient is an ill-appearing 27-year-old male who is awake and alert and laying on the gurney. Mother is at the bedside. EYES: Pupils equal, round, reactive to light and accommodation. EOMs intact without nystagmus. Sclera are anicteric. ENT: Tympanic membranes intact, with normal landmarks. External canals are clear. Oral and nasopharynx are clear. Mucous membranes are moist, no lesions, tongue and gums appear normal. CARDIOVASCULAR: Regular rate and rhythm. Peripheral pulses easy to palpable. RESPIRATORY: Breath sounds equal and clear to auscultation. GI: Bowel sounds are present. Abdomen is soft, scaphoid, mildly tender to palpation through the right mid abdomen without guarding or rebound. MUSCULOSKELETAL: Full range of motion of extremities x 4 with good strength. No cyanosis, edema, joint tenderness or swelling. No deformity. INTEGUMENTARY: No lesions or rash, normal skin turgor. Course Course The patient was seen and assessed as above. External medical records are reviewed. He presents to the emergency department for evaluation of acute nausea, vomiting, diarrhea and right-sided abdominal pain that started this morning. IV lock was initiated and laboratory studies were collected. CBC with differential, CMP, lipase and urinalysis were ordered. He was hydrated with a l iter bolus of normal saline solution. He was treated with Compazine 10 mg and Benadryl 25 mg IV. Patient was reassessed. He was feeling improved. He had had only 1 small episode of vomiting after being medicated. Laboratory studies per my interpretation note a mildly elevated white count at 16,500 with left shift, likely related to the stress of illness and demargination. No anemia. No significant electrolyte imbalance noted. Renal functions are normal. Transaminases are not elevated. Lipase is within normal limits and not indicative of acute pancreatitis. He was given a second liter of normal saline solution bolus. Patient was reassessed. He has yet to provide a urine sample though he reports that he has tried. He has has vomited again several times and was ordered Zofran 8 mg IV. Given his persistent symptoms I did recommend CT imaging and they were in agreement. Additional maintenance fluids were continued. CT scan of the abdomen and pelvis with IV contrast per my interpretation notes no evidence for ureteral calculi. No evidence for bowel obstruction. Appendix is normal. Colon and rectum are mildly fluid-filled concerning for diarrheal illness. No bowel obstruction. Possible short segment jejunal intussusception noted of unclear significance. Patient was reassessed. CT scan findings were discussed with the patient and his mother. No evidence for ureteral calculi. Symptoms are likely related to the enteritis/colitis/diarrheal illness. Recommended supportive care. Patient was agreeable to a p.o. fluid trial and was given some Powerade. Went back to check on the patient to see how well he was tolerating the Powerade, and he had not tried any yet. He also is insistent that he is not able to provide a urine sample. Mom reports that he has mostly been sleeping, but he states that he did not feel well enough to start sipping on any fluids. He is still feeling nauseous but he has not vomited. He was ordered Phenergan 25 mg IV. He did open the Powerade and tried taking a few sips. Patient was reassessed. He had tried sipping some Powerade and has subsequently vomited. He has now been in the emergency department for almost 8 hours. He has received multiple antiemetics and several liters of IV fluid. He still is insistent he is not able to provide a urine sample, and despite multiple medications he is still vomiting. He was ordered Reglan 10 mg IV and normal saline solution at 250 cc/h. Options were discussed with the patient including admission/observation for IV treatment, versus a trial of home therapy, and he is electing the former. Case reviewed with ED case management assistant and [facility]. Patient was briefly discussed with Dr. Ken at change of shift. He asked for a bladder scan, to ensure patient is making urine. Before the patient could be bladder scanned by nursing staff, he had urine output of 400 cc, and urine was sent for microscopy and UDS. Dr. Ken also asked that I review the CT scan findings with general surgery. I did discuss the findings with Dr. Duffy, who felt that it was not acutely a surgical situation, but would be happy to consult on the patient. A COVID test was obtained for admitting purposes and was negative. A urine sample sent for microscopy was completely negative, noted ketones, and no other indicators for infection. I did ultimately review the patient with Dr. Mock, who will be responsible for the admission orders. I suspect the patient's illness is likely viral in nature, certainly considered bowel obstruction, infectious versus inflammatory colitis/enteritis or foodborne illness, kidney stone, electrolyte or metabolic abnormality, dehydration and also cannabinoid hyperemesis. Administered Medications Sodium Chloride (Nss 1000ml) 1,000 mls @ 250 mls/hr IV .Q4H DIANA Stop: 01/24/23 18:44 Last Admin: 12/25/22 19:07 Dose: 250 mls/hr Documented By: RUSS Discontinued Medications Diphenhydramine HCl (Diphenhydramine 50 Mg/Ml Vial) 25 mg IV NOW STA Stop: 12/25/22 12:23 Last Admin: 12/25/22 12:28 Dose: 25 mg Documented By: RUDY Sodium Chloride (Nss 1000ml) 1,000 mls @ 999 mls/hr IV .Q1H1M DIANA Stop: 12/25/22 14:23 Last Infusion: 12/25/22 15:17 Dose: 0 mls/hr Documented By: Admin: 12/25/22 13:36 Dose: 999 mls/hr Documented By: Infusion: 12/25/22 13:29 Dose: 999 mls/hr Documented By: Admin: 12/25/22 12:28 Dose: 999 mls/hr Documented By: RUDY Prochlorperazine (Compazine) 2 mls @ 1 mls/min IV ONE ONE Stop: 12/25/22 12:23 Last Admin: 12/25/22 12:28 Dose: 1 mls/min Documented By: RUDY Sodium Chloride (Nss 1000ml) 1,000 mls @ 999 mls/hr IV .Q1H1M DIANA Stop: 12/25/22 14:46 Last Infusion: 12/25/22 17:07 Dose: 0 mls/hr Documented By: Admin: 12/25/22 16:06 Dose: 999 mls/hr Documented By: RAMÍREZ Ondansetron HCl 8 mg/ Dextrose 54 mls @ 200 mls/hr IV NOW STA Stop: 12/25/22 15:18 Last Infusion: 12/25/22 16:23 Dose: 0 mls/hr Documented By: Admin: 12/25/22 16:06 Dose: 200 mls/hr Documented By: RAMÍREZ Promethazine HCl (Phenergan) 12.5 mg in 50.5 mls @ 202 mls/hr IV NOW STA Stop: 12/25/22 18:08 Last Infusion: 12/25/22 18:17 Dose: 0 mls/hr Documented By: Admin: 12/25/22 18:02 Dose: 202 mls/hr Documented By: RAMÍREZ Ioversol (Optiray 320 100ml) 95 ml IV ONCE ONE Stop: 12/25/22 15:56 Last Admin: 12/25/22 15:55 Dose: 95 ml Documented By: RACHELLE Metoclopramide HCl (Metoclopramide Hcl Inj 5 Mg/Ml 2 Ml Vial) 10 mg IV NOW STA Stop: 12/25/22 18:44 Last Admin: 12/25/22 19:07 Dose: 10 mg Documented By: RUSS Medical Decision Making Differential Diagnosis See ED course. Medical Records Attestation: I reviewed the patient's medical records. Home Medications Current Medication List: was personally reviewed by me Laboratory Data Attestation: I reviewed the patient's lab results. 12/25/22 12:17 12/25/22 12:17 Lab Results 12/25/22 12/25/22 12/25/22 Range/Units 12:17 12:17 19:17 WBC 16.54 H (4.8-10.8) K/ul RBC 5.11 (4.70-6.10) M/uL Hgb 15.9 (14.0-18.0) g/dl Hct 46.8 (42.0-52.0) % MCV 91.6 (80.0-100.0) fL MCH 31.1 (25.0-34.0) pg MCHC 34.0 (32.0-36.0) g/dL RDW Std Deviation 41.6 (36.4-46.3) fL RDW Coeff of [place] 12.4 (11.5-14.5) % Plt Count 284 (130-400) K/uL MPV 9.7 (9.4-12.4) fL Immature Gran % (Auto) 0.4 % Neut % (Auto) 86.3 % Lymph % (Auto) 5.7 % Lamb % (Auto) 7.4 % Eos % (Auto) 0.0 % Baso % (Auto) 0.2 % Neut # (Auto) 14.27 H (1.40-6.50) K/uL Lymph # (Auto) 0.95 L (1.2-3.4) K/uL Lamb # (Auto) 1.23 H (0.11-0.59) K/uL Eos # (Auto) 0.00 (0-0.50) K/uL Baso # (Auto) 0.03 (0-0.2) K/uL Immature Gran # (Auto) 0.06 (0.01-0.20) K/uL Sodium 143 (136-145) mmol/L Potassium 4.0 (3.5-5.1) mmol/L Chloride 107 (98-107) mmol/L Carbon Dioxide 29 (21-32) mmol/L Anion Gap 7 (3-11) BUN 11 (6-23) mg/dl Creatinine 0.87 (0.6-1.4) mg/dl Est Cr Clr Drug Dosing 113.4 ml/min Est GFR ( Amer) 136.1 ml/min Est GFR (Non-Af Amer) 117.5 ml/min BUN/Creatinine Ratio 12.6 (10-20) Glucose 141 H (70-99(Fasting)) mg/dl Calcium 9.3 (8.6-10.3) mg/dl Total Bilirubin 0.4 (0.2-1.0) mg/dl AST 25 (13-39) U/L ALT 23 (7-52) U/L Alkaline Phosphatase 51 (34-104) U/L Total Protein 7.9 (6.0-8.3) gm/dl Albumin 4.8 (3.4-5.0) gm/dl Globulin 3.1 (2.5-4.0) gm/dl Albumin/Globulin Ratio 1.5 (0.9-2) Lipase 32 (11-82) U/L Urine Color Yellow Urine Appearance Clear (Clear) Urine pH 7.0 (4.5-7.5) Ur Specific [place] > 1.045 H (1.000-1.030) Urine Protein Negative (Negative) Urine Glucose (UA) Negative (Negative) Urine Ketones Negative (Negative) Urine Blood Negative (Negative) Urine Nitrite Negative (Negative) Urine Bilirubin Negative (Negative) Urine Urobilinogen Negative (Negative) Ur Leukocyte Esterase Negative (Negative) SARS-CoV-2, RNA, NAAT (NEGATIVE) 12/25/22 Range/Units 19:19 WBC (4.8-10.8) K/ul RBC (4.70-6.10) M/uL Hgb (14.0-18.0) g/dl Hct (42.0-52.0) % MCV (80.0-100.0) fL MCH (25.0-34.0) pg MCHC (32.0-36.0) g/dL RDW Std Deviation (36.4-46.3) fL RDW Coeff of [place] (11.5-14.5) % Plt Count (130-400) K/uL MPV (9.4-12.4) fL Immature Gran % (Auto) % Neut % (Auto) % Lymph % (Auto) % Lamb % (Auto) % Eos % (Auto) % Baso % (Auto) % Neut # (Auto) (1.40-6.50) K/uL Lymph # (Auto) (1.2-3.4) K/uL Lamb # (Auto) (0.11-0.59) K/uL Eos # (Auto) (0-0.50) K/uL Baso # (Auto) (0-0.2) K/uL Immature Gran # (Auto) (0.01-0.20) K/uL Sodium (136-145) mmol/L Potassium (3.5-5.1) mmol/L Chloride (98-107) mmol/L Carbon Dioxide (21-32) mmol/L Anion Gap (3-11) BUN (6-23) mg/dl Creatinine (0.6-1.4) mg/dl Est Cr Clr Drug Dosing ml/min Est GFR ( Amer) ml/min Est GFR (Non-Af Amer) ml/min BUN/Creatinine Ratio (10-20) Glucose (70-99(Fasting)) mg/dl Calcium (8.6-10.3) mg/dl Total Bilirubin (0.2-1.0) mg/dl AST (13-39) U/L ALT (7-52) U/L Alkaline Phosphatase (34-104) U/L Total Protein (6.0-8.3) gm/dl Albumin (3.4-5.0) gm/dl Globulin (2.5-4.0) gm/dl Albumin/Globulin Ratio (0.9-2) Lipase (11-82) U/L Urine Color Urine Appearance (Clear) Urine pH (4.5-7.5) Ur Specific [place] (1.000-1.030) Urine Protein (Negative) Urine Glucose (UA) (Negative) Urine Ketones (Negative) Urine Blood (Negative) Urine Nitrite (Negative) Urine Bilirubin (Negative) Urine Urobilinogen (Negative) Ur Leukocyte Esterase (Negative) SARS-CoV-2, RNA, NAAT NEGATIVE (NEGATIVE) Imaging Data Attestation: I personally reviewed and interpreted this imaging study as follows: Radiologist's Impression: Abdomen/Pelvis CT 12/25/22 15:02 CT OF THE ABDOMEN AND PELVIS WITH CONTRAST CLINICAL HISTORY: RIGHT FLANK PAIN, N/V/D, HX OF STONES COMPARISON STUDY: CT of the abdomen and pelvis and right upper quadrant ultrasound May 02, 2021. TECHNIQUE: Following IV administration of 95 mL of Optiray, axial images of the abdomen and pelvis were obtained from the lung bases to the proximal femurs. Images were reviewed in the axial, sagittal, and coronal planes. IV contrast was administered without complication. Automated exposure control was utilized for the study. A dose lowering technique was utilized adhering to the principles of ALARA. CT DOSE: 441.58 mGy.cm FINDINGS: Lung bases are unremarkable. No pneumatosis, free air or portal venous gas is present. Periportal edema is noted. There is no biliary ductal dilatation status post cholecystectomy. Small amount of perihepatic fluid is also noted. There is trace fluid within the pelvis. The spleen, adrenal glands and pancreas are unremarkable. There may be chronic mild dilatation of several right upper p ole calyces. This is unchanged. There are no ureteral calculi. The appearance of the kidneys is unchanged. There is no evidence for a bowel obstruction. A jejunal short segment intussusception is incidentally noted. The appendix is normal. The colon and rectum are mildly fluid-filled. There is no evidence for a bowel obstruction. Major vasculature is patent. There is no lymphadenopathy. No fluid collection is present. IMPRESSION: 1. No ureteral calculi. Stable mild right calyceal dilatation versus parapelvic cysts when compared to CT of May 02, 2021. 2. Small amount of perihepatic ascites and trace fluid within the pelvis. Mild periportal edema. The findings are nonspecific although could be related to hydration. 3. Short segment jejunal intussusception which is of doubtful seconds. No bowel obstruction. 4. Mildly fluid-filled colon and rectum. This could reflect a diarrheal state. 5. Normal appendix. No bowel obstruction. ACT 112: Negative or not required by law. Electronically signed by: Jagdish Beasley M.D. 12/25/2022 4:15 PM MDM Narrative See ED course. Impression & Plan Intractable nausea and vomiting, Diarrhea Discharge Plan Visit Data Chief Complaint: Flank Pain Stated Complaint: POSSIBLE KIDNEY STONES ED Provider: Killian Guillen ED Midlevel Provider: Diane Baez Discharge Problem: Intractable nausea and vomiting, Diarrhea Forms Stand Alone Forms: My [facility] [address] Prescriptions Prescriptions: No Action Medical Marijuana 1 dose PO UD multivitamin Tablet 1 tab PO QAM dextroamphetamine-amphetamine [Adderall] 30 mg tablet 30 mg PO BID Referrals Referrals: Vishal Gonzalez MD [Primary Care Provider] -
[2022-12-25] MEDS: SODIUM CHLORIDE 0.9% 1000ML 1,000 ML IV SCH ×2 (12:28→13:36)
[2022-12-25 13:06] LABS: Basophils # (auto) 0.03 K/uL (0-0.2); Basophils % (auto) 0.2 %; Hematocrit (blood only) 46.8 % (42.0-52.0); Hemoglobin 15.9 g/dl (14.0-18.0); Immature Granulocytes # (auto) 0.06 K/uL (0.01-0.20); Immature Granulocytes % (auto) 0.4 %; Lymphocytes # (auto) 0.95 K/uL (1.2-3.4); Lymphocytes % (auto) 5.7 %; Mean Corpuscular Hemoglobin 31.1 pg (25.0-34.0); Mean Corpuscular Volume 91.6 fL (80.0-100.0); Mean Platelet Volume 9.7 fL (9.4-12.4); Monocytes # (auto) 1.23 K/uL (0.11-0.59); Monocytes % (auto) 7.4 %; Neutrophils # (auto) 14.27 K/uL (1.40-6.50); Neutrophils % (auto) 86.3 %; Platelet Count 284 K/uL (130-400); RDW Coefficient of Variation 12.4 % (11.5-14.5); RDW Standard Deviation 41.6 fL (36.4-46.3); Red Blood Count 5.11 M/uL (4.70-6.10); White Blood Count 16.54 K/ul (4.8-10.8)
[2022-12-25 13:29] LABS: Albumin Globulin Ratio 1.5 (0.9-2); Albumin Level 4.8 gm/dl (3.4-5.0); BUN Creatinine Ratio 12.6 (10-20); Bilirubin,Total 0.4 mg/dl (0.2-1.0); Calcium 9.3 mg/dl (8.6-10.3); Creatinine Clr Calc Pharmacy 113.4 ml/min; Est GFR (African American) 136.1 ml/min; Est GFR (Non-African American) 117.5 ml/min; Globulin 3.1 gm/dl (2.5-4.0); Total Protein 7.9 gm/dl (6.0-8.3)
[2022-12-25] MEDS ORDERED: SODIUM CHLORIDE 0.9% 1000ML 1,000 ML IV SCH ×2 (13:46→18:45)
[2022-12-25] MEDS ORDERED: ondansetron HCL 8 MG in DEXTROSE 5% 50 ML IV STA (15:02)
[2022-12-25] MEDS ORDERED: OPTIRAY 320 100ml IV ONE (15:55)
--- NOTE | 2022-12-25 16:18 | CT Scan Report ---
CT OF THE ABDOMEN AND PELVIS WITH CONTRAST CLINICAL HISTORY: RIGHT FLANK PAIN, N/V/D, HX OF STONES COMPARISON STUDY: CT of the abdomen and pelvis and right upper quadrant ultrasound May 02, 2021. TECHNIQUE: Following IV administration of 95 mL of Optiray, axial images of the abdomen and pelvis we re obtained from the lung bases to the proximal femurs. Images were reviewed in the axial, sagittal, and coronal planes. IV contrast was administered without complication. Automated exposure control wa s utilized for the study. A dose lowering technique was utilized adhering to the principles of ALARA . CT DOSE: 441.58 mGy.cm FINDINGS: Lung bases are unremarkable. No pneumatosis, free air or portal venous gas is present. Marisel portal edema is noted. There is no biliary ductal dilatation status post cholecystectomy. Small amoun t of perihepatic fluid is also noted. There is trace fluid within the pelvis. The spleen, adrenal gla nds and pancreas are unremarkable. There may be chronic mild dilatation of several right upper pole c alyces. This is unchanged. There are no ureteral calculi. The appearance of the kidneys is unchanged. There is no evidence for a bowel obstruction. A jejunal short segment intussusception is incidentall y noted. The appendix is normal. The colon and rectum are mildly fluid-filled. There is no evidence f or a bowel obstruction. Major vasculature is patent. There is no lymphadenopathy. No fluid collection is present. IMPRESSION: 1. No ureteral calculi. Stable mild right calyceal dilatation versus parapelvic cysts when compared t o CT of May 02, 2021. 2. Small amount of perihepatic ascites and trace fluid within the pelvis. Mild periportal edema. The findings are nonspecific although could be related to hydration. 3. Short segment jejunal intussusception which is of doubtful seconds. No bowel obstruction. 4. Mildly fluid-filled colon and rectum. This could reflect a diarrheal state. 5. Normal appendix. No bowel obstruction. ACT 112: Negative or not required by law. Electronically signed by: Jagdish Beasley M.D. 12/25/2022 4:15 PM
[2022-12-25] MEDS ORDERED: PROMETHAZINE 12.5 MG/50.5 ML BAG IV STA (17:54)
[2022-12-25] MEDS ORDERED: METOCLOPRAMIDE HCL INJ 5 MG/ML 2 ML VIAL IV STA (18:43)
[2022-12-25 19:33] LABS: Appearance Urine Clear (Clear); Bilirubin Urine Negative (Negative); Blood Urine Negative (Negative); Color Urine Yellow; Glucose Urine UA Negative (Negative); Ketones Urine Negative (Negative); Leukocyte Esterase Urine Negative (Negative); Nitrite Urine Negative (Negative); Protein Urine Negative (Negative); Specific Gravity Urine > 1.045 (1.000-1.030); Urobilinogen Urine Negative (Negative)
--- NOTE | 2022-12-25 20:19 | History & Physical Report ---
Date of Service December 25, 2022 Assessment & Plan (1) Intractable nausea and vomiting: (2) Diarrhea: (3) Panic disorder: (4) Depression: (5) Medical marijuana use: (6) Cannabinoid hyperemesis syndrome: (7) Tobacco use disorder: (8) Anxiety: Plan Intractable nausea, vomiting and diarrhea/presumptive cannabinoid hyperemesis syndrome- Patient reports use of medical marijuana CT scan abdomen pelvis negative, laboratories otherwise normal with mild leukocytosis which may be leukemoid reaction Elevated urine specific gravity suggest dehydration Status post 3 L normal saline in the ED, and still looks dehydrated on examination NSS + KCl 20 mill equivalents at 200 mils per hour Zofran 4 mg IV every 6 hours as needed Famotidine 20 mg IV every 12 hours Acetaminophen 650 mg by mouth every 6 hours as needed for mild pain or fever Advised cessation of medical marijuana, or any forms of marijuana Anxiety/depression/ADHD- Hold Adderall XR, presently taking 30 mg twice daily Tobacco use disorder- Cessation counseling History of Present Illness Chief Complaint: The patient presents to the emergency department with intractable nausea, vomiting, diarrhea and right-sided abdominal and back pain that began around 4:00 this morning Primary Care Provider: Vishal Gonzalez MD The patient is a 27-year-old male with a past medical history including panic disorder, depression, cannabis use/medical marijuana, UPJ stone, hypertension, tobacco use disorder and anxiety. He woke up this morning at 4:00 with intermittent nausea, vomiting, diarrhea and right-sided flank abdominal pain, similar to previous kidney stones in 2018. His symptoms did not improve all day, and he thus presents to the emergency department for assessment. Significant laboratories: WBC 16.54, hemoglobin 15.9, hematocrit 46.8, glucose 141, urine specific gravity greater than 1.045 CT scan abdomen pelvis without contrast shows no acute findings. The patient was given multiple medications: Compazine, Benadryl, Zofran, Phenergan, metoclopramide, normal saline without significant improvement in symptoms and he was then referred for evaluation for admission. Allergies Allergy/AdvReac Type Severity Reaction Status Date / Time No Known Allergies Allergy NONE KNOWN Verified 12/25/22 13:03 Home Medications Medication Instructions Recorded Confirmed Type dextroamphetamine-amphetamine 30 30 mg PO BID 02/16/21 12/25/22 History mg tablet (Adderall) multivitamin 1 tab PO QAM 02/16/21 12/25/22 History Medical Marijuana 1 dose PO UD 05/02/21 12/25/22 History Past Med/Surg History Medical History (Updated 12/26/22 @ 01:44 by Po Mokc MD) Anxiety Congenital obstruction of ureteropelvic junction (UPJ) Depression Hypertension Medical marijuana use Nephrolithiasis Panic disorder Tobacco use disorder Surgical History History of cystoscopy STENT PLACED History of tonsillectomy History of ureter stent Hx laparoscopic cholecystectomy (05/03/21) Laparoscopic Cholecystectomy 05-03-2021 - Raymond Zhao DO, FACS Family History Family/Other Family history of diabetes mellitus Mother Nephrolithiasis Unknown Vesicoureteral reflux Social History Smoking Status: Never smoker Tobacco Type: Cigarettes Cigarettes Per Day: 1-2 CIGS DAILY; Second Hand Exposure: No; Do You Dip or Chew Tobacco: No; Hx Alcohol Use: No Hx Substance Use: Yes Last Used Substance: Days (ago) Last Used Substance Other:: 05/01/21 Substance Use Type Other:: Medical Marijuana Preferred Language: Belarusian Communication Ability: Effective 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 Required: No Beliefs That Will Affect Care: None Current Living Situation: Parent Current Living Situation Comment: parents and sister Other Information That Helps Us Care for You: No Feels Safe at Home: Yes Safety Concerns: Feels Safe At This Time Assistive Devices: None Review of Systems Review of Systems: The patient denies chest pain, palpitations, shortness of breath, dyspnea on exertion, cough, lower extremity swelling, sore throat, fevers, chills, sweats, blood in urine or stool, dysuria, urinary frequency or urgency, lightheadedness, dizziness, headache, memory loss, loss of consciousness, rash, abnormal bruising or bleeding, imbalance, focal or generalized weakness, numbness or tingling in arms or legs, generalized arthralgias or myalgias, neck pain, or night sweats. The review of systems is otherwise negative other than for that already noted above, and at least 10 systems have been reviewed. Physical Exam Physical Exam: The patient is awake, alert and oriented 3, well developed and well nourished, normocephalic and atraumatic, lying in bed and in no acute distress. HEENT--PERRL, EOMI, mucous membranes and oropharynx dry. Neck--supple. No JVD. No bruits. Thyroid normal, trachea midline, no adenopathy. Heart--normal S1 and S2. No murmurs, rubs or gallops. Lungs--clear bilaterally, no respiratory distress, no accessory muscle use. Abdomen--normal bowel sounds and soft. Nontender. Nondistended, no hernias or masses, no organomegaly. Extremities--no cyanosis or clubbing. No edema. Dermatologic--normal skin turgor, normal color, no abnormal lymph nodes, no rash. Neurologic--cranial nerves II through XII grossly intact. Rheumatologic--normal range of motion. Psychiatric--normal affect. Results & Data Results & Data Vital Signs (Past 12 Hours) Vital Signs Temp Pulse Pulse Resp BP BP Pulse Ox 12/25/22 19:31 62 12/25/22 19:20 51 L 16 123/73 99 12/25/22 18:00 55 L 19 129/91 99 12/25/22 16:09 60 20 116/87 99 12/25/22 13:12 60 20 123/88 98 12/25/22 11:36 36.1 C L 66 20 130/89 100 O2 Del Method 12/25/22 19:31 12/25/22 19:20 Room Air 12/25/22 18:00 Room Air 12/25/22 16:09 Room Air 12/25/22 13:12 12/25/22 11:36 Room Air Laboratory Results Laboratory Results WBC 16.54 K/ul (4.8-10.8) H 12/25/22 12:17 RBC 5.11 M/uL (4.70-6.10) 12/25/22 12:17 Hgb 15.9 g/dl (14.0-18.0) 12/25/22 12:17 Hct 46.8 % (42.0-52.0) 12/25/22 12:17 MCV 91.6 fL (80.0-100.0) 12/25/22 12:17 MCH 31.1 pg (25.0-34.0) 12/25/22 12:17 MCHC 34.0 g/dL (32.0-36.0) 12/25/22 12:17 RDW Std Deviation 41.6 fL (36.4-46.3) 12/25/22 12:17 RDW Coeff of Aundrea 12.4 % (11.5-14.5) 12/25/22 12:17 Plt Count 284 K/uL (130-400) 12/25/22 12:17 MPV 9.7 fL (9.4-12.4) 12/25/22 12:17 Immature Gran % (Auto) 0.4 % 12/25/22 12:17 Neut % (Auto) 86.3 % 12/25/22 12:17 Lymph % (Auto) 5.7 % 12/25/22 12:17 Roberts % (Auto) 7.4 % 12/25/22 12:17 Eos % (Auto) 0.0 % 12/25/22 12:17 Baso % (Auto) 0.2 % 12/25/22 12:17 Neut # (Auto) 14.27 K/uL (1.40-6.50) H 12/25/22 12:17 Lymph # (Auto) 0.95 K/uL (1.2-3.4) L 12/25/22 12:17 Roberts # (Auto) 1.23 K/uL (0.11-0.59) H 12/25/22 12:17 Eos # (Auto) 0.00 K/uL (0-0.50) 12/25/22 12:17 Baso # (Auto) 0.03 K/uL (0-0.2) 12/25/22 12:17 Immature Gran # (Auto) 0.06 K/uL (0.01-0.20) 12/25/22 12:17 Sodium 143 mmol/L (136-145) 12/25/22 12:17 Potassium 4.0 mmol/L (3.5-5.1) 12/25/22 12:17 Chloride 107 mmol/L (98-107) 12/25/22 12:17 Carbon Dioxide 29 mmol/L (21-32) 12/25/22 12:17 Anion Gap 7 (3-11) 12/25/22 12:17 BUN 11 mg/dl (6-23) 12/25/22 12:17 Creatinine 0.87 mg/dl (0.6-1.4) 12/25/22 12:17 Est Cr Clr Drug Dosing 113.4 ml/min 12/25/22 12:17 Est GFR ( Amer) 136.1 ml/min 12/25/22 12:17 Est GFR (Non-Af Amer) 117.5 ml/min 12/25/22 12:17 BUN/Creatinine Ratio 12.6 (10-20) 12/25/22 12:17 Glucose 141 mg/dl (70-99(Fasting)) H 12/25/22 12:17 Calcium 9.3 mg/dl (8.6-10.3) 12/25/22 12:17 Total Bilirubin 0.4 mg/dl (0.2-1.0) 12/25/22 12:17 AST 25 U/L (13-39) 12/25/22 12:17 ALT 23 U/L (7-52) 12/25/22 12:17 Alkaline Phosphatase 51 U/L (34-104) 12/25/22 12:17 Total Protein 7.9 gm/dl (6.0-8.3) 12/25/22 12:17 Albumin 4.8 gm/dl (3.4-5.0) 12/25/22 12:17 Globulin 3.1 gm/dl (2.5-4.0) 12/25/22 12:17 Albumin/Globulin Ratio 1.5 (0.9-2) 12/25/22 12:17 Lipase 32 U/L (11-82) 12/25/22 12:17 Urine Color Yellow 12/25/22 19:17 Urine Appearance Clear (Clear) 12/25/22 19:17 Urine pH 7.0 (4.5-7.5) 12/25/22 19:17 Ur Specific [place] > 1.045 (1.000-1.030) H 12/25/22 19:17 Urine Protein Negative (Negative) 12/25/22 19:17 Urine Glucose (UA) Negative (Negative) 12/25/22 19:17 Urine Ketones Negative (Negative) 12/25/22 19:17 Urine Blood Negative (Negative) 12/25/22 19:17 Urine Nitrite Negative (Negative) 12/25/22 19:17 Urine Bilirubin Negative (Negative) 12/25/22 19:17 Urine Urobilinogen Negative (Negative) 12/25/22 19:17 Ur Leukocyte Esterase Negative (Negative) 12/25/22 19:17 Urine Opiates Screen Neg (Neg) 12/25/22 19:17 Ur Methadone, Qual Neg (Neg) 12/25/22 19:17 Urine Barbiturates Neg (Neg) 12/25/22 19:17 Ur Phencyclidine (PCP) Neg (Neg) 12/25/22 19:17 U Amphetamin/Meth Scrn Neg (Neg) 12/25/22 19:17 MDMA (Ecstasy) Screen Neg (Neg) 12/25/22 19:17 U Benzodiazepines Scrn Neg (Neg) 12/25/22 19:17 Ur Cocaine Metabolite Neg (Neg) 12/25/22 19:17 U Marijuana (THC) Screen Pos (Neg) H 12/25/22 19:17 SARS-CoV-2, RNA, NAAT NEGATIVE (NEGATIVE) 12/25/22 19:19 Impressions Abdomen/Pelvis CT 12/25/22 15:02 CT OF THE ABDOMEN AND PELVIS WITH CONTRAST CLINICAL HISTORY: RIGHT FLANK PAIN, N/V/D, HX OF STONES COMPARISON STUDY: CT of the abdomen and pelvis and right upper quadrant ultrasound May 02, 2021. TECHNIQUE: Following IV administration of 95 mL of Optiray, axial images of the abdomen and pelvis were obtained from the lung bases to the proximal femurs. Images were reviewed in the axial, sagittal, and coronal planes. IV contrast was administered without complication. Automated exposure control was utilized for the study. A dose lowering technique was utilized adhering to the principles of ALARA. CT DOSE: 441.58 mGy.cm FINDINGS: Lung bases are unremarkable. No pneumatosis, free air or portal venous gas is present. Periportal edema is noted. There is no biliary ductal dilatation status post cholecystectomy. Small amount of perihepatic fluid is also noted. There is trace fluid within the pelvis. The spleen, adrenal glands and pancreas are unremarkable. There may be chronic mild dilatation of several right upper pole calyces. This is unchanged. There are no ureteral calculi. The appearance of the kidneys is unchanged. There is no evidence for a bowel obstruction. A jejunal short segment intussusception is incidentally noted. The appendix is normal. The colon and rectum are mildly fluid-filled. There is no evidence for a bowel obstruction. Major vasculature is patent. There is no lymphadenopathy. No fluid collection is present. IMPRESSION: 1. No ureteral calculi. Stable mild right calyceal dilatation versus parapelvic cysts when compared to CT of May 02, 2021. 2. Small amount of perihepatic ascites and trace fluid within the pelvis. Mild periportal edema. The findings are nonspecific although could be related to hydration. 3. Short segment jejunal intussusception which is of doubtful seconds. No bowel obstruction. 4. Mildly fluid-filled colon and rectum. This could reflect a diarrheal state. 5. Normal appendix. No bowel obstruction. ACT 112: Negative or not required by law. Electronically signed by: Jagdish Beasley M.D. 12/25/2022 4:15 PM Code Status & VTE Plan Code Status Full code VTE Prophylaxis Plan VTE Prophylaxis will be ordered: Yes PG Care Time/CCT Total # of Minutes Spent Total Time Spent with Patient: Total time spent is greater than 50% in coordination of care (as documented) at patient's floor/unit and/or counseling patient: Coding Level of Care Code 48968 INT INP/OBS CARE 3/75MIN Diagnoses Intractable nausea and vomiting R11.2 Diarrhea R19.7 Panic disorder F41.0 Depression F32.9 Medical marijuana use Z79.899 Cannabinoid hyperemesis syndrome R11.2; F12.90 Tobacco use disorder F17.200 Anxiety F41.9
[2022-12-25 20:53] LABS: Amphetamines+Metham, Urine Neg (Neg); Barbiturates, Urine Neg (Neg); Benzodiazepine, Urine Neg (Neg); Cocaine, Urine Neg (Neg); MDMA (Ecstacy), Urine Neg (Neg); Methadone, Urine Neg (Neg); Opiate, Urine Neg (Neg); Phencyclidine, Urine Neg (Neg)
[2022-12-25] MEDS ORDERED: ACETAMINOPHEN 325 MG TAB PO PRN (21:59)
[2022-12-25] MEDS: FAMOTIDINE 20 MG in SYRINGE 3 ML IV SCH (22:24)
[2022-12-25] MEDS: NSS + 20MEQ KCL 20 MEQ/1,000 ML BAG IV SCH (22:24)
[2022-12-26] MEDS: NSS + 20MEQ KCL 20 MEQ/1,000 ML BAG IV SCH ×4 (03:27→19:05)
[2022-12-26] MEDS: ONDANSETRON INJ 2 MG/ML 2 ML VIAL IV PRN ×2 (05:30→17:23)
[2022-12-26 07:41] LABS: Hematocrit (blood only) 36.6 % (42.0-52.0); Hemoglobin 12.5 g/dl (14.0-18.0); Immature Granulocytes # (auto) 0.03 K/uL (0.01-0.20); Immature Granulocytes % (auto) 0.4 %; Lymphocytes # (auto) 0.88 K/uL (1.2-3.4); Lymphocytes % (auto) 12.6 %; Mean Corpuscular Hemoglobin 30.7 pg (25.0-34.0); Mean Corpuscular Hgb Conc 34.2 g/dL (32.0-36.0); Mean Corpuscular Volume 89.9 fL (80.0-100.0); Mean Platelet Volume 9.8 fL (9.4-12.4); Monocytes # (auto) 1.11 K/uL (0.11-0.59); Monocytes % (auto) 15.9 %; Neutrophils # (auto) 4.95 K/uL (1.40-6.50); Neutrophils % (auto) 71.1 %; Platelet Count 213 K/uL (130-400); RDW Coefficient of Variation 12.7 % (11.5-14.5); RDW Standard Deviation 41.6 fL (36.4-46.3); Red Blood Count 4.07 M/uL (4.70-6.10); White Blood Count 6.97 K/ul (4.8-10.8)
[2022-12-26 08:12] LABS: Alanine Aminotransferase 14 U/L (7-52); Albumin Globulin Ratio 1.5 (0.9-2); Albumin Level 3.3 gm/dl (3.4-5.0); Alkaline Phosphatase 35 U/L (34-104); Anion Gap 5 (3-11); Aspartate Aminotransferase 13 U/L (13-39); BUN Creatinine Ratio 13.6 (10-20); Bilirubin,Total 0.5 mg/dl (0.2-1.0); Blood Urea Nitrogen 9 mg/dl (6-23); Calcium 8.1 mg/dl (8.6-10.3); Carbon Dioxide 26 mmol/L (21-32); Chloride 115 mmol/L (98-107); Creatinine Clr Calc Pharmacy 152.7 ml/min; Est GFR (African American) > 150.0 ml/min; Est GFR (Non-African American) 131.6 ml/min; Globulin 2.2 gm/dl (2.5-4.0); Glucose 108 mg/dl (70-99(Fasting)); Magnesium 1.4 mg/dl (1.7-2.4); Potassium 3.6 mmol/L (3.5-5.1); Sodium 146 mmol/L (136-145); Total Protein 5.5 gm/dl (6.0-8.3)
[2022-12-26] MEDS: FAMOTIDINE 20 MG in SYRINGE 3 ML IV SCH ×2 (08:52→21:23)
--- NOTE | 2022-12-26 09:33 | Hospitalist Progress Note ---
Date of Service December 26, 2022 Assessment & Plan (1) Intractable nausea and vomiting: Plan: Bolivar is a 27 yo male with a pmh of kidney stones s/p cholecystectomy who presented with intractable nausea, vomiting and diarrhea. #Intractable nausea, vomiting and diarrhea CT scan abdomen pelvis negative. Both sensitivity and specificity are greater than ninety five [address] scan for kidney stones. Laboratories otherwise normal with mild leukocytosis which may be leukemoid reaction. Patient reports use of medical marijuana. Resolving symptoms throughout the day suggests GI virus. Elevated urine specific gravity suggest dehydration. - Status post 3 L normal saline in the ED, and still looks dehydrated on examination - NSS + KCl 20 mill equivalents at 200 mils per hour - Zofran 4 mg IV every 6 hours as needed - Famotidine 20 mg IV every 12 hours - Acetaminophen 650 mg by mouth every 6 hours as needed for mild pain or fever - Advised cessation of medical marijuana, or any forms of marijuana #Anxiety/depression/ADHD- -Hold Adderall XR, presently taking 30 mg twice daily #Tobacco use disorder -Cessation counseling FULL CODE DVT Prophylaxis: F/E/N: Dispo: Medicine (2) Diarrhea: (3) Panic disorder: (4) Depression: (5) Medical marijuana use: (6) Cannabinoid hyperemesis syndrome: (7) Tobacco use disorder: (8) Anxiety: Admission and Anticipated Discharge Date Admission Date: December 25, 2022 Supervising Physician Co-Signing Physician Notes I personally examined the patient and verified all [place] points of history and exam, discussed case, and agree with decision making with Jacklyn Fair MS4 and Dr Mccullough feeling better still not great but hasn't vomited since this AM and diarrhea seems to have stopped vitals noted fatigued but nad heent nc at mmm breathing unlabored no accessory muscles good effort skin no rashes no pallor or icterus abd soft nd nt gastroenteritis - probably viral - appears to be improving. doubt cannabis hyperemesis given abrupt onset, now resolving. supportive care, advance diet. Subjective No acute events overnight. He has had one episode of emesis this morning. He still feels quite nauseous. His abdominal pain has decreased from a 8/10 to a 3/10. The pain is vaguely on the right side front to back, and also reports tenderness on the left CVA as well. He only reports eating 1 meal a day, in the evening. These are full meals "salmon, spaghetti" or "whatever my family is eating". He has approx five cups of coffee a day. He denies history of heart burn. He denies any urinary symptoms. Inquired more about medical mj use. Reports anywhere from 3 to 4 "dabs" most days, to all days, per week since 2018. He does not drink EtOH everyday, when he does drink it is 3 beers over the course of a night, denies IV drug use. Review of Systems Constitutional: Denied fever, night sweats, fatigue, weakness, dizziness Respiratory: Denied cough or shortness of breath. Gastrointestinal: Endorses nausea, vomiting, diarrhea, abdominal pain. Genitourinary: no dysuria, no difficulty urinating, no urinary frequency, no urinary hesitancy or no urinary incontinence Neurologic: Denied weaknesss, numbness, or tingling. Physical Exam Constitutional: Alert and oriented x3 in hospital bed, in mild distress Neck: Respiratory: CTA, no increased work of breathing Cardiovascular: Normal rate and regular rhythmn. S1 S2, no r/m/g. Radial pulses equal b/l. Capillary refill less than 2 sec. Gastrointestinal (Abdomen): Nondistended, nontender, normoactive bowel sounds. Musculoskeletal: Moves all extremities independently. Skin: Warm dry, no apparent rashed. Psychiatric: Appropriate mood and affect. Lymphatic: No lymphadenopathy in the neck and cervical region. Results & Data Results & Data Vital Signs (Past 12 Hours) Vital Signs Temp Pulse Pulse Resp BP BP Pulse Ox 12/26/22 07:05 36.9 C 94 H 18 105/61 95 12/25/22 22:00 12/25/22 22:00 12/25/22 22:00 36.9 C 58 L 16 111/74 98 12/25/22 21:52 12/25/22 21:40 55 L 19 99 12/25/22 21:30 57 L 19 127/69 100 12/25/22 21:20 53 L 18 100 O2 Del Method 12/26/22 07:05 Room Air 12/25/22 22:00 Room Air, Nasal Cannula 12/25/22 22:00 Room Air 12/25/22 22:00 Room Air 12/25/22 21:52 Room Air 12/25/22 21:40 12/25/22 21:30 12/25/22 21:20
--- NOTE | 2022-12-26 17:42 | Billing Data ---
Date of Service December 26, 2022 Coding Level of Care Code 61811 SUB INP/OBS CARE
[2022-12-27] MEDS: NSS + 20MEQ KCL 20 MEQ/1,000 ML BAG IV SCH ×5 (00:07→21:51)
[2022-12-27 07:31] LABS: Hematocrit (blood only) 39.9 % (42.0-52.0); Hemoglobin 13.4 g/dl (14.0-18.0); Mean Corpuscular Hemoglobin 30.7 pg (25.0-34.0); Mean Corpuscular Hgb Conc 33.6 g/dL (32.0-36.0); Mean Corpuscular Volume 91.5 fL (80.0-100.0); Mean Platelet Volume 9.7 fL (9.4-12.4); Platelet Count 189 K/uL (130-400); RDW Coefficient of Variation 12.5 % (11.5-14.5); RDW Standard Deviation 41.5 fL (36.4-46.3); Red Blood Count 4.36 M/uL (4.70-6.10); White Blood Count 7.39 K/ul (4.8-10.8)
[2022-12-27 07:50] LABS: BUN Creatinine Ratio 12.5 (10-20); Calcium 8.3 mg/dl (8.6-10.3); Est GFR (African American) 147.1 ml/min; Est GFR (Non-African American) 126.9 ml/min; Magnesium 1.5 mg/dl (1.7-2.4); Potassium 4.1 mmol/L (3.5-5.1)
[2022-12-27] MEDS: ONDANSETRON INJ 2 MG/ML 2 ML VIAL IV PRN ×2 (08:23→20:59)
[2022-12-27] MEDS: FAMOTIDINE 20 MG in SYRINGE 3 ML IV SCH ×2 (08:28→20:14)
[2022-12-27] MEDS ORDERED: FAMOTIDINE 20 MG TAB PO SCH (09:00)
[2022-12-27] MEDS ORDERED: PROMETHAZINE HCL INJ 25 MG/ML 1 ML VIAL IM ONE (10:17)
--- NOTE | 2022-12-27 10:27 | Hospitalist Progress Note ---
Date of Service December 27, 2022 Assessment & Plan (1) Intractable nausea and vomiting: Plan: Pt is a 27 yo male with a PMH of kidney stones s/p cholecystectomy who presented with intractable nausea, vomiting and diarrhea. Intractable nausea, vomiting and diarrhea - CTAP negative - viral gastroenteritis vs. cannabinoid hyperemesis; d/t acuity of onset and quick improvement, more likely to be viral - pt was using zofran which hasn't helped enough; addition of phenergan 12.5mg x1, carafate QID, protonix BID, tylenol 500 mg q6hr - continue famotidine BID - continue fluids as pt's PO intake is still poor Anxiety/depression/ADHD - Hold Adderall XR, presently taking 30 mg twice daily Tobacco use disorder - Cessation counseling Diet: regular as tolerated, continue NS w/ 20 meq K DVT Prophylaxis: low risk, SCDs Code: full Dispo: med/surg (2) Depression: (3) Tobacco use disorder: (4) Anxiety: Admission and Anticipated Discharge Date Admission Date: December 25, 2022 Supervising Physician Co-Signing Physician Notes I personally examined the patient and verified all [place] points of history and exam, discussed case, and agree with decision making with Jacklyn Fair MS4 and Dr Mccullough no further diarrhea. (+) epigastric and substernal burning - seems to be better more upright. no further vomiting either vitals noted fatigued but nad heent nc at mmm breathing unlabored no accessory muscles good effort skin no rashes no pallor or icterus abd soft nd mild epigastric tenderness no guarding/rebound/rigidity gastroenteritis - probably viral - appears to be improving. doubt cannabis hyperemesis given abrupt onset, now resolving. today's symptoms most c/w residual reflux or post viral gastritis - acid suppression, antiemetics, supportive care, continue to follow - right now no apparent need for secondary w/u but if fails to improve or improvement stalls may then need to consider Subjective Pt states he is still nauseous this morning. He feels like he has to throw up but nothing comes up. He did not eat anything yesterday, only ice chips. His diarrhea has stopped. He does not some burning chest pain in the middle of his chest that seems to correlate with heart burn. Review of Systems Review of Systems: As per HPI Physical Exam Physical Exam: Constitutional: well appearing, no acute distress HEENT: normocephalic, no conjunctival injection CV: RRR, no murmur, no LE edema Respiratory: CTA bilaterally. No rhonchi, wheezes, or crackles. No increased work of breathing GI: soft, nondistended, mostly nontender, + bowel sounds MSK: no gross deformities noted Skin: warm, dry, no rashes Neuro: alert, oriented, no FND noted Psych: mood and affect congruent Results & Data Results & Data Vital Signs (Past 12 Hours) Vital Signs Temp Pulse Resp BP Pulse Ox O2 Del Method 12/27/22 07:22 37.0 C 79 18 123/74 97 Room Air 12/26/22 22:59 37.0 C 56 L 18 148/90 H 98 Room Air Resident Activity Tracking Resident Involvement: Resident Care Provided Care Provided: Adult Hospital Medicine
[2022-12-27] MEDS ORDERED: PROMETHAZINE HCL 12.5 MG in SODIUM CHLORIDE 0.9% 50 ML IV ONE (10:30)
[2022-12-27] MEDS: PANTOprazole 40 MG in SYRINGE 0 ML IV SCH ×2 (11:05→20:08)
[2022-12-27] MEDS: ACETAMINOPHEN 500 MG TAB PO SCH ×4 (11:14→21:52)
--- NOTE | 2022-12-27 11:24 | Billing Data ---
Date of Service December 27, 2022 Coding Level of Care Code 89538 SUB INP/OBS CARE MIN
[2022-12-27] MEDS: SUCRALFATE 1 GM/10 ML UDC PO SCH ×3 (13:49→20:08)
[2022-12-28] MEDS: ACETAMINOPHEN 500 MG TAB PO SCH ×3 (02:17→06:14)
[2022-12-28] MEDS: NSS + 20MEQ KCL 20 MEQ/1,000 ML BAG IV SCH ×4 (02:52→23:14)
[2022-12-28] MEDS ORDERED: ACETAMINOPHEN 1,000 MG/100 ML VIAL IV PRN (06:20)
[2022-12-28] MEDS: ONDANSETRON INJ 2 MG/ML 2 ML VIAL IV PRN ×2 (07:55→19:20)
[2022-12-28] MEDS: SUCRALFATE 1 GM/10 ML UDC PO SCH ×4 (08:03→20:08)
[2022-12-28 08:14] LABS: Hematocrit (blood only) 39.6 % (42.0-52.0); Hemoglobin 13.1 g/dl (14.0-18.0); Mean Corpuscular Hemoglobin 30.3 pg (25.0-34.0); Mean Corpuscular Hgb Conc 33.1 g/dL (32.0-36.0); Mean Corpuscular Volume 91.7 fL (80.0-100.0); Mean Platelet Volume 9.9 fL (9.4-12.4); Platelet Count 195 K/uL (130-400); RDW Coefficient of Variation 12.1 % (11.5-14.5); RDW Standard Deviation 40.4 fL (36.4-46.3); Red Blood Count 4.32 M/uL (4.70-6.10); White Blood Count 6.26 K/ul (4.8-10.8)
[2022-12-28 08:27] LABS: Anion Gap 3 (3-11); BUN Creatinine Ratio 9.2 (10-20); Blood Urea Nitrogen 6 mg/dl (6-23); Calcium 8.4 mg/dl (8.6-10.3); Carbon Dioxide 30 mmol/L (21-32); Chloride 108 mmol/L (98-107); Creatinine Clr Calc Pharmacy 155.1 ml/min; Est GFR (African American) > 150.0 ml/min; Est GFR (Non-African American) 132.4 ml/min; Glucose 93 mg/dl (70-99(Fasting)); Magnesium 1.6 mg/dl (1.7-2.4); Sodium 141 mmol/L (136-145)
[2022-12-28] MEDS: PANTOprazole 40 MG in SYRINGE 0 ML IV SCH ×2 (08:45→20:08)
[2022-12-28] MEDS: FAMOTIDINE 20 MG in SYRINGE 3 ML IV SCH ×2 (08:54→20:08)
--- NOTE | 2022-12-28 08:54 | Gastrointestinal Consultation ---
Supervising Physicians Note Case discussed with Jesusita Hunt NP, records reviewed, patient interviewed and examined. Persistent nausea and vomiting after what sounds like an acute infectious enteritis. He has dizziness as well but he feels the dizziness came after the nausea and vomiting. He denies abdominal pain This could just be slow to resolve nausea/vomiting in association with the acute illness. There is also the entitiy of "post infectious gastroparesis" that we see sometimes after acute infectious issues. Hyperemesis related to marijuana use also needs to be considered. Lastly vertigo can cause nausea and vomiting as well. I will try him on metoclopramide for post infectious issues. I don't plan EGD as he had no stomach issues prior to the acute illness. I have spent a total of 20 minutes on this case including discussion with OIL SPRAYING MACHINE OPERATOR, record review, patient visit and entering of records into EMR Live Colvin Jr, MD, [facility] [place] Date of Consultation December 28, 2022 Assessment & Plan (1) Medical marijuana use: Nausea and vomiting: Likely viral etiology initially considering diarrhea and abrupt onset. Patient continues to struggle with n/v. He does use medical marijuana frequently. Comfort measures and outpatient evaluation likely most appropriate in his care. Dr. Colvin will evaluate patient this afternoon and make recommendations for plan of care. Case reviewed with Dr. Colvin. Please refer to supervising physician addendum for further recommendations. I have spent 30 minutes of discrete time performing the activities of this visit which include but are not limited to review of the medical record, obtaining a history, physical exam, and entering information in the electronic record. (2) Intractable nausea and vomiting: History of Present Illness Attending Physician: Nate Aaron DO History of Present Illness The patient is a 27-year-old male with past medical history to include panic disorder, depression, cannabis use/medical marijuana, UPJ stone, hypertension, tobacco use disorder, anxiety who presented to the emergency department 12/25/2022 due to nausea, vomiting, diarrhea. He was subsequently admitted due to intract able nausea and vomiting. The GI service was consulted due to continued nausea and vomiting. The patient reports that he woke around 4 AM the day he presented to the emergency department with diarrhea and vomiting. He states now nausea and vomiting continued. He has history of kidney stones. Status post cholecystectomy 1 to 2 years ago. Reports he has constant nausea. The only thing that helps is staying still. He states drinking, eating, being in the wrong position makes his symptoms worse. Sitting and standing. Denies any fever, chills, night sweats, weight loss. Denies cough, sore throat, hoarse voice. He denies dysphagia or odynophagia. Denies heartburn. Denies routine use of aspirin or NSAIDs. No abdominal pain. Stools are now loose. Denies melena or hematochezia. The patient does use medical marijuana multiple times daily due to "kidney pain". Home medications include Adderall and multivitamin. Denies use of other recreational drugs. Allergies Allergy/AdvReac Type Severity Reaction Status Date / Time No Known Allergies Allergy NONE KNOWN Verified 12/25/22 13:03 Home Medications Medication Instructions Recorded Confirmed Type dextroamphetamine-amphetamine 30 30 mg PO BID 02/16/21 12/25/22 History mg tablet (Adderall) multivitamin 1 tab PO QAM 02/16/21 12/25/22 History Medical Marijuana 1 dose PO UD 05/02/21 12/25/22 History Patient History Medical History (Updated 12/26/22 @ 17:42 by Nate Aaron DO) Anxiety Congenital obstruction of ureteropelvic junction (UPJ) Depression Hypertension Medical marijuana use Nephrolithiasis Panic disorder Tobacco use disorder Surgical History History of cystoscopy STENT PLACED History of tonsillectomy History of ureter stent Hx laparoscopic cholecystectomy (05/03/21) Laparoscopic Cholecystectomy 05-03-2021 - Raymond Zhao DO, FACS Family History Family/Other Family history of diabetes mellitus Mother Nephrolithiasis Unknown Vesicoureteral reflux Social History Smoking Status: Never smoker Tobacco Type: Cigarettes Cigarettes Per Day: 1-2 CIGS DAILY; Second Hand Exposure: No; Do You Dip or Chew Tobacco: No; Hx Alcohol Use: No Hx Substance Use: Yes Last Used Substance: Days (ago) Last Used Substance Other:: 05/01/21 Substance Use Type Other:: Medical Marijuana Preferred Language: Georgian Communication Ability: Effective Soldering Machine Feeder Required: No Beliefs That Will Affect Care: None Current Living Situation: Parent Current Living Situation Comment: parents and sister Other Information That Helps Us Care for You: No Feels Safe at Home: Yes Safety Concerns: Feels Safe At This Time Assistive Devices: None Review of Systems Review of Systems: All systems reviewed & are unremarkable except as noted in HPI & below Physical Exam Constitutional: WD/WN, vitals as above Respiratory: normal respiratory effort, lungs clear to auscultation Cardiovascular: RRR, no murmur, no edema Gastrointestinal (Abdomen): normal bowel sounds, soft, nontender, no hepatosplenomegaly Results & Data Vital Signs (Past 12 Hours) Vital Signs Temp Pulse Resp BP BP Pulse Ox O2 Del Method 12/28/22 07:34 36.7 C 54 L 18 154/98 H 154/98 H 100 Room Air 12/27/22 20:56 36.8 C 64 18 129/80 98 Room Air Laboratory Results Laboratory Results - last 24 hr 12/28/22 12/28/22 07:13 07:13 WBC 6.26 RBC 4.32 L Hgb 13.1 L Hct 39.6 L MCV 91.7 MCH 30.3 MCHC 33.1 RDW Std Deviation 40.4 RDW Coeff of Aundrea 12.1 Plt Count 195 MPV 9.9 Sodium 141 Potassium 4.0 Chloride 108 H Carbon Dioxide 30 Anion Gap 3 BUN 6 Creatinine 0.65 Est Cr Clr Drug Dosing 155.1 Est GFR ( Amer) > 150.0 Est GFR (Non-Af Amer) 132.4 BUN/Creatinine Ratio 9.2 L Glucose 93 Calcium 8.4 L Magnesium 1.6 L Diagnostic Findings Abdomen/Pelvis CT 12/25/22 15:02 CT OF THE ABDOMEN AND PELVIS WITH CONTRAST CLINICAL HISTORY: RIGHT FLANK PAIN, N/V/D, HX OF STONES COMPARISON STUDY: CT of the abdomen and pelvis and right upper quadrant ultrasound May 02, 2021. TECHNIQUE: Following IV administration of 95 mL of Optiray, axial images of the abdomen and pelvis were obtained from the lung bases to the proximal femurs. Images were reviewed in the axial, sagittal, and coronal planes. IV contrast was administered without complication. Automated exposure control was utilized for the study. A dose lowering technique was utilized adhering to the principles of ALARA. CT DOSE: 441.58 mGy.cm FINDINGS: Lung bases are unremarkable. No pneumatosis, free air or portal venous gas is present. Periportal edema is noted. There is no biliary ductal dilatation status post cholecystectomy. Small amount of perihepatic fluid is also noted. There is trace fluid within the pelvis. The spleen, adrenal glands and pancreas are unremarkable. There may be chronic mild dilatation of several right upper pole calyces. This is unchanged. There are no ureteral calculi. The appearance of the kidneys is unchanged. There is no evidence for a bowel obstruction. A jejunal short segment intussusception is incidentally noted. The appendix is normal. The colon and rectum are mildly fluid-filled. There is no evidence for a bowel obstruction. Major vasculature is patent. There is no lymphadenopathy. No fluid collection is present. IMPRESSION: 1. No ureteral calculi. Stable mild right calyceal dilatation versus parapelvic cysts when compared to CT of May 02, 2021. 2. Small amount of perihepatic ascites and trace fluid within the pelvis. Mild periportal edema. The findings are nonspecific although could be related to hydration. 3. Short segment jejunal intussusception which is of doubtful seconds. No bowel obstruction. 4. Mildly fluid-filled colon and rectum. This could reflect a diarrheal state. 5. Normal appendix. No bowel obstruction. ACT 112: Negative or not required by law. Electronically signed by: Jagdish Beasley M.D. 12/25/2022 4:15 PM
--- NOTE | 2022-12-28 09:31 | Hospitalist Progress Note ---
Date of Service December 28, 2022 Assessment & Plan (1) Intractable nausea and vomiting: Plan: Pt is a 27 yo male with a PMH of kidney stones s/p cholecystectomy who presented with intractable nausea, vomiting and diarrhea. Intractable nausea, vomiting and diarrhea - CTAP negative - viral gastroenteritis vs. cannabinoid hyperemesis as most likely etiologies - continue carafate QID, protonix BID, famotidine BID, tylenol 500 mg q6hr PRN - possible component of migraine symptoms- toradol 15 mg x1 - per GI; addition of metoclopramide ACHS for possible component of post viral gastroparesis - continue fluids as pt's PO intake is still poor - if pt does not continue to improve, may have to consider less common etiologies (candidal esophagitis, etc) Anxiety/depression/ADHD - continue to hold Adderall XR, presently taking 30 mg twice daily Tobacco use disorder - continue cessation counseling Diet: regular as tolerated, continue NS w/ 20 meq K DVT Prophylaxis: low risk, SCDs Code: full Dispo: med/surg (2) Depression: (3) Tobacco use disorder: (4) Anxiety: Admission and Anticipated Discharge Date Admission Date: December 27, 2022 Supervising Physician Co-Signing Physician Notes I personally examined the patient and verified all [place] points of history and exam, discussed case, and agree with decision making with Dr Mccullough Still some substernal burning and epigastric discomfort, still difficulty eating. No further diarrhea. vitals noted fatigued but nad heent nc at mmm breathing unlabored no accessory muscles good effort skin no rashes no pallor or icterus abd soft nd mild epigastric tenderness And even less than yesterday, no guarding/rebound/rigidity gastroenteritis - probably viral - appears to be improving. given that he is not better yet, entertained broader differentials, but still seems most likely to be the case. Continue supportive care. Subjective Pt states he still isn't feeling well this morning. He did not tolerate PO tylenol overnight and had to be switched to IV. He is still nauseous and vomiting. He does endorse some headaches/dizziness that has also accompanied his symptoms. Review of Systems Review of Systems: As per HPI Physical Exam Physical Exam: Constitutional: well appearing, no acute distress HEENT: normocephalic, no conjunctival injection CV: RRR, no murmur, no LE edema Respiratory: CTA bilaterally. No rhonchi, wheezes, or crackles. No increased work of breathing GI: soft, nondistended, mildly tender mostly on right side/epigastric area, + bowel sounds MSK: no gross deformities noted Skin: warm, dry, no rashes Neuro: alert, oriented, no FND noted Psych: mood and affect congruent Results & Data Results & Data Vital Signs (Past 12 Hours) Vital Signs Temp Pulse Resp BP BP Pulse Ox O2 Del Method 12/28/22 07:34 36.7 C 54 L 18 154/98 H 154/98 H 100 Room Air Resident Activity Tracking Resident Involvement: Resident Care Provided Care Provided: Adult Hospital Medicine
[2022-12-28] MEDS: MAGNESIUM SULFATE / D5W 1 GM/100 ML BAG IV SCH ×2 (10:40→13:03)
[2022-12-28] MEDS ORDERED: KETOROLAC TROMETHAMINE 15 MG/ML VIAL IV ONE (12:43)
[2022-12-28] MEDS: ACETAMINOPHEN 1,000 MG/100 ML VIAL IV SCH (17:09)
[2022-12-28] MEDS: METOCLOPRAMIDE HCL 10 MG TABLET PO SCH ×2 (18:58→20:08)
--- NOTE | 2022-12-28 19:03 | Billing Data ---
Date of Service December 28, 2022 Coding Level of Care Code 41371 SUB INP/OBS CARE
[2022-12-28] MEDS ORDERED: MELATONIN 3 MG TAB PO PRN (20:17)
[2022-12-28] MEDS ORDERED: diphenhydrAMINE 50 MG/ML VIAL IV STA (21:27)
[2022-12-29] MEDS: NSS + 20MEQ KCL 20 MEQ/1,000 ML BAG IV SCH ×2 (04:16→10:01)
[2022-12-29] MEDS: ACETAMINOPHEN 1,000 MG/100 ML VIAL IV SCH (05:16)
[2022-12-29 06:27] LABS: Hemoglobin 12.4 g/dl (14.0-18.0); Mean Corpuscular Hemoglobin 30.7 pg (25.0-34.0); Mean Corpuscular Hgb Conc 34.4 g/dL (32.0-36.0); Mean Corpuscular Volume 89.1 fL (80.0-100.0); Mean Platelet Volume 9.7 fL (9.4-12.4); Platelet Count 172 K/uL (130-400); RDW Coefficient of Variation 11.8 % (11.5-14.5); RDW Standard Deviation 37.7 fL (36.4-46.3); Red Blood Count 4.04 M/uL (4.70-6.10); White Blood Count 4.99 K/ul (4.8-10.8)
[2022-12-29 06:34] LABS: BUN Creatinine Ratio 5.8 (10-20); Calcium 8.1 mg/dl (8.6-10.3); Creatinine Clr Calc Pharmacy 146.1 ml/min; Est GFR (African American) 149.7 ml/min; Est GFR (Non-African American) 129.2 ml/min; Potassium 3.9 mmol/L (3.5-5.1)
[2022-12-29] MEDS: METOCLOPRAMIDE HCL 10 MG TABLET PO SCH ×2 (09:06→11:48)
[2022-12-29] MEDS: PANTOprazole 40 MG in SYRINGE 0 ML IV SCH (09:07)
[2022-12-29] MEDS: SUCRALFATE 1 GM/10 ML UDC PO SCH ×2 (09:07→12:18)
[2022-12-29] MEDS: FAMOTIDINE 20 MG in SYRINGE 3 ML IV SCH (09:15)
--- NOTE | 2022-12-29 09:51 | Communication Note ---
Date of Service: December 29, 2022 No further nausea and vomiting since yesterday. He feels starting reglan yesterday helped. He tolerated his breakfast without issues. He currently denies any GI issues. Patient is hopeful to be discharged to home. He can follow up with GI as outpatient.
--- NOTE | 2022-12-29 09:56 | Discharge Summary ---
Date of Service December 29, 2022 Admission HPI Per Admitting Provider The patient is a 27-year-old male with a past medical history including panic disorder, depression, cannabis use/medical marijuana, UPJ stone, hypertension, tobacco use disorder and anxiety. He woke up this morning at 4:00 with intermittent nausea, vomiting, diarrhea and right-sided flank abdominal pain, similar to previous kidney stones in 2018. His symptoms did not improve all day, and he thus presents to the emergency department for assessment. Significant laboratories: WBC 16.54, hemoglobin 15.9, hematocrit 46.8, glucose 141, urine specific gravity greater than 1.045 CT scan abdomen pelvis without contrast shows no acute findings. The patient was given multiple medications: Compazine, Benadryl, Zofran, Phenergan, metoclopramide, normal saline without significant improvement in symptoms and he was then referred for evaluation for admission. Admission Exam Per Admitting Provider The patient is awake, alert and oriented 3, well developed and well nourished, normocephalic and atraumatic, lying in bed and in no acute distress. HEENT--PERRL, EOMI, mucous membranes and oropharynx dry. Neck--supple. No JVD. No bruits. Thyroid normal, trachea midline, no adenopathy. Heart--normal S1 and S2. No murmurs, rubs or gallops. Lungs--clear bilaterally, no respiratory distress, no accessory muscle use. Abdomen--normal bowel sounds and soft. Nontender. Nondistended, no hernias or masses, no organomegaly. Extremities--no cyanosis or clubbing. No edema. Dermatologic--normal skin turgor, normal color, no abnormal lymph nodes, no ra sh. Neurologic--cranial nerves II through XII grossly intact. Rheumatologic--normal range of motion. Psychiatric--normal affect. Principal Diagnosis viral gastroenteritis Discharge Exam Constitutional: well appearing, no acute distress HEENT: normocephalic, no conjunctival injection CV: regular rhythm, regular rate, no murmur, no LE edema Respiratory: Clear to auscultation bilaterally. No rhonchi, wheezes, or crackles. No increased work of breathing GI: soft, nondistended, nontender, positive bowel sounds MSK: no gross deformities noted Skin: warm, dry, no rashes Neuro: alert, oriented, no FND noted Discharge Data Allergies Allergy/AdvReac Type Severity Reaction Status Date / Time No Known Allergies Allergy NONE KNOWN Verified 12/25/22 13:03 Consultations 12/25/22 19:13 ED Decision to Admit Stat 12/27/22 14:54 Consult Gastroenterology Routine Ordered Studies 12/25/22 15:02 CT Abd and Pelvis [CT abd pelvis IV con only] Stat IMPRESSION: 1. No ureteral calculi. Stable mild right calyceal dilatation versus parapelvic cysts when compared to CT of May 02, 2021. 2. Small amount of perihepatic ascites and trace fluid within the pelvis. Mild periportal edema. The findings are nonspecific although could be related to hydration. 3. Short segment jejunal intussusception which is of doubtful seconds. No bowel obstruction. 4. Mildly fluid-filled colon and rectum. This could reflect a diarrheal state. 5. Normal appendix. No bowel obstruction. Hospital Course (1) Intractable nausea and vomiting: Pt is a 27 yo male with a PMH of kidney stones s/p cholecystectomy who presented with intractable nausea, vomiting and diarrhea. Intractable nausea, vomiting and diarrhea - CTAP negative - viral gastroenteritis vs. cannabinoid hyperemesis as most likely etiologies - given carafate QID, protonix BID, famotidine BID, tylenol 500 mg q6hr PRN while hospitalized - possible component of migraine symptoms- toradol 15 mg x1 (did not seem to help) - per GI; addition of metoclopramide ACHS for possible component of post viral gastroparesis- greatly helped pt's symptoms - d/c with zofran PRN and metoclopramide x1 week Anxiety/depression/ADHD - continue Adderall XR, presently taking 30 mg twice daily Tobacco use disorder - continue cessation counseling Diet: tolerated crackers and esther kofi, eggs for breakfast prior to discharge. May eat as he feels able DVT Prophylaxis: low risk, SCDs Code: full Dispo: home (2) Depression: (3) Tobacco use disorder: (4) Anxiety: Total Time Total Time Spent Total Time Spent (In Minutes): <30 Discharge Plan Discharge Items Patient Disposition: Home - Self-Care Reason For Visit: INTRACTABLE NAUSEA, VOMITING AND DIARRHEA Discharge Diagnosis: viral gastroenteritis vs. cannabinoid hyperemesis Activity: Per Instructions section Non-emergency contact: Primary Care Provider Call non-emergency contact if: you have any medication questions, your symptoms worsen and your pain is not controlled Follow-up/Referrals: Vishal Gonzalez MD [Primary Care Provider] - 01/05/23 8:45 am Live Colvin Jr, MD [Physician] - (f/u nausea/vomiting, multiple abdominal complaints) Diet: Regular Addtl Attending Provider Instructions: You were admitted to the hospital for intractable nausea and vomiting with some diarrhea. The diarrhea stopped relatively early on in your admission. However, the nausea and vomiting continued. You were treated with anti-nausea medications and pain medications. This helped your symptoms enough for you to tolerate eating regular food. It is thought that your symptoms were most likely caused by a viral infection. It is possible that your symptoms could be caused by a condition called cannabinoid hyperemesis. You should discuss your cannabis use further with your PCP. You should be aware that the anti-nausea medication metoclopramide (reglan) is for short term use only. If used termite treater helper, it can cause a permanent movement disorder called tardive dyskinesia. A discharge summary will be sent to your primary care physician to ensure continuity of care. Please bring this discharge summary with you to your next office appointment so that your provider can review it at that time. Medications: Your medication list has been reviewed and reconciled upon discharge to ensure accuracy and continuity of care. An updated list of all your medications is included with your hospital discharge paperwork. Please review this list closely and make note of any changes to your medications. - You were sent zofran (an anti-nausea medication) to use as needed up to every 6 hours. - You have also been prescribed reglan (metoclopramide). You may use this for up to one week with meals and before bed. - Otherwise, you can use tylenol for pain control. Follow up appointments: - Make a follow up appointment with your PCP within the next week. It is very important that you follow up with them shortly after discharge from the hospital. - You should also follow up with GI to discuss your chronic abdominal pain. - Keep all of your follow up appointments as already scheduled. If you cannot make an appointment, notify your provider. CONTACT YOUR PRIMARY CARE PROVIDER if you experience any of the following: - Difficulty following your treatment plan - Difficulty taking any of your medications CALL 911 OR GO TO THE EMERGENCY DEPARTMENT if you experience any of the fol lowing: - Sudden, severe abdominal pain or nausea/vomiting - Severe chest pain or chest pain that radiates to your jaw or arm - Sudden, severe shortness of breath or difficulty breathing Pending Studies at Discharge: No Stand-Alone Forms: My [facility] [email or web address], Smoking Cessation Medications and DC Order Prescriptions: New ondansetron 4 mg tablet,disintegrating 4 mg PO Q6H PRN (Reason: nausea and vomiting) Qty: 10 0RF metoclopramide HCl 10 mg tablet 10 mg PO ACHS PRN (Reason: nausea and vomiting) Qty: 28 0RF Continued Medical Marijuana 1 dose PO UD multivitamin Tablet 1 tab PO QAM dextroamphetamine-amphetamine [Adderall] 30 mg tablet 30 mg PO BID Discharge Orders: Discharge Order (Routine); Ordered 12/29/22 Ordered By: Sindi Redd/Other Patient Handouts: Cannabinoid Hyperemesis Syndrome Admission Data Admit Date/Time: 12/27/22 17:22 Attending Provider: Nate Aaron Admit Provider: Sindi Mccullough Primary Care Provider: Vishal Gonzalez Other Providers: Po Mock ; Live Colvin Jr Other Interventions: Discharge Summary Assessment (RN) Last Done: 12/29/22 12:22 Supervising Physician Co-Signing Physician Notes I personally examined the patient and verified all [place] points of history and exam, discussed case, and agree with decision making with Dr Mccullough feeling better and would like to go home vitals noted fatigued but nad heent nc at mmm breathing unlabored no accessory muscles good effort skin no rashes no pallor or icterus gastroenteritis - probably viral - appears to be improving. apparently has chronic issues that he has not brought up before -> will f/u w PCP. d/w pt reglan can cause irreversible TD - OK to use for short term but definitely will not want to use long at all (about a week) safe/stable for home, PCP f/u Resident Activity Tracking Resident Involvement: Resident Care Provided Care Provided: Adult Hospital Medicine
[2022-12-29 10:16] LABS: Marijuana Quant, GCMS Urine 1278 ng/mL (<5)
--- NOTE | 2022-12-29 19:03 | Billing Data ---
Date of Service December 29, 2022 Coding Level of Care Code 11058 IN/OBS DISCH 30 MIN/LESS
--- NOTE | 2022-12-29 22:50 | Electrocardiogram Report ---
Test Reason : Blood Pressure : / mmHG Vent. Rate : 050 BPM Atrial Rate : 050 BPM P-R Int : 132 ms QRS Dur : 082 ms QT Int : 426 ms P-R-T Axes : 068 085 072 degrees QTc Int : 388 ms Sinus bradycardia Otherwise normal ECG When compared with ECG of 08-MAR-2018 15:05, No significant change was found Confirmed by Ramos Du ([id number]) on 12/29/2022 10:50:00 PM Referred By: REFERRED SELF Confirmed By:Ramos Du
== END 2022-12-29 13:16 | disposition home or self-care (01) | DRG 392 ==
LOC: 3N 11:11 → ED 11:11 → SUATTDRO 20:18 → 3N 21:52